=== PATIENT | male | born 1935 | race Caucasian/White ===

== ENCOUNTER 2017-11-19 12:17 | Inpatient (IN) ==
[2017-11-19] MEDS ORDERED: Sodium Chlor 0.9% Inj 500 ML IV.SIG ONE (12:31)
--- NOTE | 2017-11-19 12:39 | ED ---
HPI General Chief complaint: Fall Stated complaint: Evac/Fall/Weakness Time Seen by Provider: 11/19/17 12:20 History of Present Illness HPI narrative: 81-year-old male with a history of CHF, CABG, CVA is brought to the emergency department by EMS for evaluation of fall with head injury. The patient states that last night when he was walking into his bathroom his right knee "gave out" and he fell hitting the back of his head on the bathroom cabinet. Denies loss of consciousness. He is anticoagulated on warfarin. Fire EMS came out last night after the fall however patient refused to be transported to the hospital. States that this morning his called EMS as he has had worsening weakness and he was agreeable to transport today. The patient states that he has had progressive generalized weakness over the last 3 months. He has also had worsening anemia over the past several months, is being followed by hematology, received 2 units of blood transfusion as an outpatient yesterday. States he is unsure why he is anemic, denies any black or bloody stool. He does have lower extremity edema which he states is worse over the last week. Denies any fever, chills, nausea, vomiting, chest pain, shortness of breath, abdominal pain, headache, dizziness, numbness or tingling, one-sided weakness. PCP is Dr. Mcleod. No other complaints. Related Data Home Medications Medication Instructions Recorded Confirmed aspirin [Aspir-81] 81 mg PO DAILY 11/19/17 11/19/17 atorvastatin 80 mg PO DAILY 11/19/17 11/19/17 furosemide [Lasix] 40 mg PO DAILY 11/19/17 11/19/17 lisinopril 10 mg PO DAILY 11/19/17 11/19/17 metoprolol tartrate 50 mg PO BID 11/19/17 11/19/17 pilocarpine HCl 5 mg PO BID 11/19/17 11/19/17 warfarin 6 mg PO DAILY 11/19/17 11/19/17 Allergies Allergy/AdvReac Type Severity Reaction Status Date / Time penicillin G Allergy Mild Unverified 09/25/17 12:18 Review of Systems ROS: all other systems reviewed are negative PMFSH Social History Social History Second Hand Smoke Exposure: No Smoking Status: Former smoker Tobacco Type: Cigarettes How Often Do You Have a Drink Containing Alcohol: Never Recent Travel in [facility] within the Last 8 Weeks: No Recent Out of Country Travel within the Last 8 Weeks: No Exam Narrative Exam Narrative: GENERAL: Well-nourished and well-developed pleasant patient in no acute distress who is nontoxic appearing. SKIN: Warm and dry. There is a hematoma noted to the top of the scalp. HEAD: Normocephalic and atraumatic. No bony point tenderness or crepitus noted throughout the sinuses. EYES: No injection, drainage, or hyphema noted. PERRLA. EOMI. ENT: No nasal drainage noted. Oropharynx is clear and the TMs are normal with good landmarks. NECK: Supple and the trachea is midline. No midline cervical spine tenderness to palpation. CARDIOVASCULAR: Regular rate and rhythm. RESPIRATORY: Breath sounds are equal bilaterally with no accessory muscle use, wheezing, rhonchi, or crackles. GASTROINTESTINAL: Abdomen is soft, non-tender, and nondistended. No hepatosplenomegaly. MUSCULOSKELETAL: Bilateral lower extremity edema. no obvious deformities, cyanosis, or ecchymosis is present throughout the upper and lower extremities. Patient has full range of motion without any signs of neurovascular compromise. Distal pulses are 2+ throughout. Strength 5/5 upper and lower extremities equal bilaterally. NEUROLOGICAL: Awake, alert, and oriented. Normal speech and gait. Cranial nerves are grossly intact. Course Initial Documented Vital Signs Temperature 97.2 F L 11/19/17 12:23 Pulse Rate 119 H 11/19/17 12:23 Respiratory Rate 18 11/19/17 12:23 Blood Pressure 152/69 H 11/19/17 12:23 Pulse Oximetry 97 11/19/17 12:23 Last Documented Vital Signs Temperature 97.2 F L 11/19/17 12:23 Pulse Rate 118 H 11/19/17 15:02 Respiratory Rate 18 11/19/17 15:02 Blood Pressure 141/69 H 11/19/17 15:02 Pulse Oximetry 100 11/19/17 15:02 Medical Decision Making [facility] Narrative Medical decision making narrative: 89-year-old male presents to the emergency department by EMS for evaluation of trip and fall with head trauma. Patient is afebrile. Patient is tachycardic with a heart rate of 110 bpm and his blood pressure is elevated 205/76. IV access is obtained, labs have been drawn and sent. Patient is placed on cardiac telemetry and pulse oximetry monitoring. EKG shows AF with LBBB and RBBB with heart rate 114 bpm. Chest x-ray shows cardiomegaly with basilar airspace disease. Suspect congestive heart failure therefore patient is administered Lasix 40 mg IV. CBC shows anemia with hemoglobin 8.9, hematocrit 26.5, platelets 122, otherwise unremarkable. Lactic acid is 2.2. CMP is unremarkable. INR is 3.4. Urinalysis shows 100 protein, large blood, 39 red blood cells, few bacteria. BNP is elevated at 553. Head CT shows 2.5 x 3.1 cm right anterior frontal intraparenchymal hematoma and a small subarachnoid hemorrhage. CT of the cervical spine is negative for acute abnormalities. Patient is administered 2 units of FFP and 2.5 mg of vitamin K to decrease INR and control bleeding. Neurosurgery was paged to discuss. I spoke with Dr. Monroe neurosurgery who agrees with correction of INR and will consult on the patient in the ICU. Patient's heart rate has remained between 115-120 bpm A. fib with RVR. Blood pressure is stable. Patient is administered Cardizem 10 mg IV for rate control. I spoke with Dr. Gomes trauma specialist who agrees to admit the patient to his service. I discussed the case with my attending physician Dr. Roberts who is aware of the patients history, physical examination findings, and treatment plan. Medical Screen Exam Complete: Yes Emergency Medical Condition: Yes Differential Diagnosis Differential Diagnosis: Intracranial hemorrhage versus hematoma versus dehydration versus sepsis versus anemia Lab Data Result diagrams: 11/19/17 12:40 11/19/17 12:40 Lab Results 11/19/17 11/19/17 11/19/17 Range/Units 12:40 12:40 12:40 WBC 9.6 (4.0-11.0) th/mm3 RBC 2.61 L (4.50-5.90) mil/mm3 Hgb 8.9 L (13.0-17.0) gm/dL Hct 26.5 L (39.0-51.0) % MCV 101.4 H (80.0-100.0) fL MCH 34.0 (27.0-34.0) pg MCHC 33.5 (32.0-36.0) % RDW 22.6 H (11.6-17.2) % Plt Count 122 L (150-450) th/mm3 MPV 7.6 (7.0-11.0) fL Neut % (Auto) 78.7 H (16.0-70.0) % Lymph % (Auto) 14.5 (9.0-44.0) % Brule % (Auto) 5.7 (0.0-8.0) % Eos % (Auto) 0.5 (0.0-4.0) % Baso % (Auto) 0.6 (0.0-2.0) % Neut # (Auto) 7.6 (1.8-7.7) th/mm3 Lymph # (Auto) 1.4 (1.0-4.8) th/mm3 Brule # (Auto) 0.5 (0.0-0.9) th/mm3 Eos # (Auto) 0.1 (0.0-0.4) th/mm3 Baso # (Auto) 0.1 (0.0-0.2) th/mm3 WBC Differential . Differential Comment Auto diff final PT 34.2 H (9.8-11.6) sec INR 3.4 Ratio APTT 44.9 H (24.3-30.1) sec Sodium 136 (136-145) meq/L Potassium 3.6 (3.5-5.1) meq/L Chloride 99 (98-107) meq/L Carbon Dioxide 29.3 (21.0-32.0) meq/L Anion Gap 8 (5-15) meq/L BUN 16 (7-18) mg/dL Creatinine 1.05 (0.60-1.30) mg/dL Estimated GFR 68 L (>89) mL/min Random Glucose 120 H (74-106) mg/dL Lactic Acid (0.4-2.0) mmol/L Calcium 8.0 L (8.5-10.1) mg/dL Total Bilirubin 1.5 H (0.2-1.0) mg/dL AST 27 (15-37) U/L ALT 23 (12-78) U/L Alkaline Phosphatase 75 (45-117) U/L Troponin I 0.02 (0.02-0.05) ng/mL B-Natriuretic Peptide (0-100) pg/mL Total Protein 6.3 L (6.4-8.2) g/dL Albumin 2.2 L (3.4-5.0) g/dL Urine Color (Yellw/Straw) Urine Clarity (Clear) Urine pH (5.0-8.5) Ur Specific [place] (1.002-1.035) Urine Protein (Neg-Trace) mg/dL Urine Glucose (UA) (Negative) mg/dL Urine Ketones (Negative) mg/dL Urine Occult Blood (Negative) Urine Nitrate (Negative) Urine Bilirubin (Negative) Urine Urobilinogen (Less than 2) mg/dL Ur Leukocyte Esterase (Negative) Urine RBC (0-3) /hpf Urine WBC (0-5) /hpf Urine Bacteria (None) /hpf Micro UA Comment Urine Culture Comments Blood Type Antibody Screen Blood Bank Comment 11/19/17 11/19/17 11/19/17 Range/Units 12:40 12:40 12:40 WBC (4.0-11.0) th/mm3 RBC (4.50-5.90) mil/mm3 Hgb (13.0-17.0) gm/dL Hct (39.0-51.0) % MCV (80.0-100.0) fL MCH (27.0-34.0) pg MCHC (32.0-36.0) % RDW (11.6-17.2) % Plt Count (150-450) th/mm3 MPV (7.0-11.0) fL Neut % (Auto) (16.0-70.0) % Lymph % (Auto) (9.0-44.0) % Brule % (Auto) (0.0-8.0) % Eos % (Auto) (0.0-4.0) % Baso % (Auto) (0.0-2.0) % Neut # (Auto) (1.8-7.7) th/mm3 Lymph # (Auto) (1.0-4.8) th/mm3 Brule # (Auto) (0.0-0.9) th/mm3 Eos # (Auto) (0.0-0.4) th/mm3 Baso # (Auto) (0.0-0.2) th/mm3 WBC Differential Differential Comment PT (9.8-11.6) sec INR Ratio APTT (24.3-30.1) sec Sodium (136-145) meq/L Potassium (3.5-5.1) meq/L Chloride (98-107) meq/L Carbon Dioxide (21.0-32.0) meq/L Anion Gap (5-15) meq/L BUN (7-18) mg/dL Creatinine (0.60-1.30) mg/dL Estimated GFR (>89) mL/min Random Glucose (74-106) mg/dL Lactic Acid 2.2 H (0.4-2.0) mmol/L Calcium (8.5-10.1) mg/dL Total Bilirubin (0.2-1.0) mg/dL AST (15-37) U/L ALT (12-78) U/L Alkaline Phosphatase (45-117) U/L Troponin I (0.02-0.05) ng/mL B-Natriuretic Peptide 553 H (0-100) pg/mL Total Protein (6.4-8.2) g/dL Albumin (3.4-5.0) g/dL Urine Color (Yellw/Straw) Urine Clarity (Clear) Urine pH (5.0-8.5) Ur Specific [place] (1.002-1.035) Urine Protein (Neg-Trace) mg/dL Urine Glucose (UA) (Negative) mg/dL Urine Ketones (Negative) mg/dL Urine Occult Blood (Negative) Urine Nitrate (Negative) Urine Bilirubin (Negative) Urine Urobilinogen (Less than 2) mg/dL Ur Leukocyte Esterase (Negative) Urine RBC (0-3) /hpf Urine WBC (0-5) /hpf Urine Bacteria (None) /hpf Micro UA Comment Urine Culture Comments Blood Type A Positive Antibody Screen Negative Blood Bank Comment 11/19/17 11/19/17 Range/Units 12:50 14:32 WBC (4.0-11.0) th/mm3 RBC (4.50-5.90) mil/mm3 Hgb (13.0-17.0) gm/dL Hct (39.0-51.0) % MCV (80.0-100.0) fL MCH (27.0-34.0) pg MCHC (32.0-36.0) % RDW (11.6-17.2) % Plt Count (150-450) th/mm3 MPV (7.0-11.0) fL Neut % (Auto) (16.0-70.0) % Lymph % (Auto) (9.0-44.0) % Brule % (Auto) (0.0-8.0) % Eos % (Auto) (0.0-4.0) % Baso % (Auto) (0.0-2.0) % Neut # (Auto) (1.8-7.7) th/mm3 Lymph # (Auto) (1.0-4.8) th/mm3 Brule # (Auto) (0.0-0.9) th/mm3 Eos # (Auto) (0.0-0.4) th/mm3 Baso # (Auto) (0.0-0.2) th/mm3 WBC Differential Differential Comment PT (9.8-11.6) sec INR Ratio APTT (24.3-30.1) sec Sodium (136-145) meq/L Potassium (3.5-5.1) meq/L Chloride (98-107) meq/L Carbon Dioxide (21.0-32.0) meq/L Anion Gap (5-15) meq/L BUN (7-18) mg/dL Creatinine (0.60-1.30) mg/dL Estimated GFR (>89) mL/min Random Glucose (74-106) mg/dL Lactic Acid (0.4-2.0) mmol/L Calcium (8.5-10.1) mg/dL Total Bilirubin (0.2-1.0) mg/dL AST (15-37) U/L ALT (12-78) U/L Alkaline Phosphatase (45-117) U/L Troponin I (0.02-0.05) ng/mL B-Natriuretic Peptide (0-100) pg/mL Total Protein (6.4-8.2) g/dL Albumin (3.4-5.0) g/dL Urine Color [place] (Yellw/Straw) Urine Clarity Hazy H (Clear) Urine pH 5.0 (5.0-8.5) Ur Specific [place] 1.019 (1.002-1.035) Urine Protein 100 H (Neg-Trace) mg/dL Urine Glucose (UA) Negative (Negative) mg/dL Urine Ketones Negative (Negative) mg/dL Urine Occult Blood Large H (Negative) Urine Nitrate Negative (Negative) Urine Bilirubin Negative (Negative) Urine Urobilinogen 4 or greater (Less than 2) mg/dL Ur Leukocyte Esterase Negative (Negative) Urine RBC 39 H (0-3) /hpf Urine WBC 12 H (0-5) /hpf Urine Bacteria Few H (None) /hpf Micro UA Comment Culture indicated Urine Culture Comments Culture indicated Blood Type Antibody Screen Blood Bank Comment Imaging Data Radiologist's impression: Cervical Spine CT 11/19/17 12:31 CONCLUSION: 1. No acute cervical spine abnormality is identified. 2. Moderate to severe multilevel degenerative change of the cervical spine, as above, with multiple areas of moderate to severe neural foraminal stenosis. Chest X-Ray 11/19/17 12:31 CONCLUSION: Cardiomegaly with basilar airspace disease in the lungs. No prior study for comparison. Head CT 11/19/17 12:31 CONCLUSION: 1. 2.5 x 3.1 cm right anterior frontal intraparenchymal hematoma with region of masslike decreased density anteriorly. There is mild associated mass effect without midline shift. Recommend contrast-enhanced MRI examination to exclude underlying mass once the patient is stable. 2. Small amount of subarachnoid hemorrhage in the left frontal high convexities near the vertex. 3. No hydrocephalus, midline shift or downward herniation.. Discharge Plan Discharge Disposition Patient Disposition: 30 Still Patient Discharge Details Diagnosis: Intracranial hematoma, Subarachnoid hemorrhage, Congestive heart failure, Atrial fibrillation with RVR Physicians Team ED Provider: Herbierto Roberts ED Midlevel Provider: Candi Wolf Primary Care Provider: Madhav Mcleod Rxs /Orders / Referrals /Forms Prescriptions: No Action furosemide [Lasix] 40 mg Tablet 40 mg PO DAILY RF: 0 pilocarpine HCl 5 mg Tablet 5 mg PO BID RF: 0 atorvastatin 80 mg Tablet 80 mg PO DAILY RF: 0 aspirin [Aspir-81] 81 mg Tablet,Delayed Release (Dr/Ec) 81 mg PO DAILY RF: 0 warfarin 6 mg Tablet 6 mg PO DAILY RF: 0 lisinopril 10 mg Tablet 10 mg PO DAILY RF: 0 metoprolol tartrate 50 mg Tablet 50 mg PO BID RF: 0 Status ED Status: With Doctor
--- NOTE | 2017-11-19 13:01 | XR ---
EXAM DATE: 11/19/2017 12:58 PM EDT AGE/SEX: 81 years / Male INDICATIONS: Weakness, fall, short of breath, fever CLINICAL DATA: This is the patient's initial encounter. Patient reports that signs and symptoms have been present for 1 day and indicates a pain score of 5/10. MEDICAL/SURGICAL HISTORY: Congestive heart failure. Anemia. Cardiovascular disease. A-fib, c ervical spine pain CABG. COMPARISON: No prior exams available for comparison. FINDINGS: Cardiomegaly with basilar airspace disease. Probable trace pleural fluid. No pneumothorax. Previous s ternotomy. CONCLUSION: Cardiomegaly with basilar airspace disease in the lungs. No prior study for comparison. Electronically signed by: Sameer Huizar MD 11/19/2017 1:00 PM EDT
[2017-11-19 13:09] LABS: Baso # (Auto) 0.1 th/mm3 (0.0-0.2); Baso % (Auto) 0.6 % (0.0-2.0); Eos # (Auto) 0.1 th/mm3 (0.0-0.4); Eos % (Auto) 0.5 % (0.0-4.0); Hematocrit 26.5 % (39.0-51.0); Hemoglobin 8.9 gm/dL (13.0-17.0); Lymph # (Auto) 1.4 th/mm3 (1.0-4.8); Lymph % (Auto) 14.5 % (9.0-44.0); Mean Corpuscular HGB Conc 33.5 % (32.0-36.0); Mean Corpuscular Volume 101.4 fL (80.0-100.0); Mean Platelet Volume 7.6 fL (7.0-11.0); Mono # (Auto) 0.5 th/mm3 (0.0-0.9); Mono % (Auto) 5.7 % (0.0-8.0); Neut # (Auto) 7.6 th/mm3 (1.8-7.7); Neut % (Auto) 78.7 % (16.0-70.0); Platelet Count 122 th/mm3 (150-450); Red Blood Count 2.61 mil/mm3 (4.50-5.90); Red Cell Distribution Width 22.6 % (11.6-17.2); White Blood Count 9.6 th/mm3 (4.0-11.0)
[2017-11-19 13:13] LABS: Bacteria,Urine Few /hpf; Bilirubin,Urine Negative (Negative); Clarity,Urine Hazy (Clear); Color,Urine Amber (Yellw/Straw); Glucose,Urine (UA) Negative (Negative); Leukocyte Esterase,Urine Negative (Negative); Nitrite,Urine Negative (Negative); Specific Gravity,Urine 1.019 (1.002-1.035); Urobilinogen,Urine 4 or Greater mg/dL (Less than 2)
[2017-11-19 13:18] LABS: Activated Partial Thrombo Time 44.9 sec (24.3-30.1); INR 3.4 Ratio; Prothrombin Time 34.2 sec (9.8-11.6)
[2017-11-19 13:34] LABS: Alanine Aminotransferase 23 U/L (12-78); Albumin 2.2 g/dL (3.4-5.0); Anion Gap 8 meq/L (5-15); Aspartate Aminotransferase 27 U/L (15-37); Blood Urea Nitrogen 16 mg/dL (7-18); Carbon Dioxide 29.3 meq/L (21.0-32.0); Chloride 99 meq/L (98-107); Glomerular Filtration Rate 68 mL/min (>89); Glucose,Random 120 mg/dL (74-106); Potassium 3.6 meq/L (3.5-5.1); Sodium 136 meq/L (136-145)
[2017-11-19 13:38] LABS: Alkaline Phosphatase 75 U/L (45-117); Total Protein 6.3 g/dL (6.4-8.2); Troponin I 0.02 ng/mL (0.02-0.05)
--- NOTE | 2017-11-19 14:03 | CT ---
EXAM DATE: 11/19/2017 1:29 PM EDT AGE/SEX: 81 years / Male INDICATIONS: Patient fell last night. Laceration to top of head CLINICAL DATA: This is the patient's initial encounter. Patient reports that signs and symptoms have been present for 1 day and indicates a pain score of 0/10. MEDICAL/SURGICAL HISTORY: None. None. RADIATION DOSE: 42.46 CTDI (mGy) COMPARISON: No prior exams available for comparison. TECHNIQUE: CT of the head without contrast. Using automated exposure control and adjustment of the mA and/or kV according to patient size, radiation dose was kept as low as reasonably achievable to ob tain optimal diagnostic quality images. DICOM format image data is available electronically for revi ew and comparison. FINDINGS: Cerebrum: There is a 2.5 x 3.1 cm right anterior frontal intraparenchymal hematoma with region of mas slike decreased density anteriorly. Mild associated mass effect without midline shift. There is also small left subarachnoid hemorrhage seen in the left frontal high convexities near the vertex. Small h ypodensity in the right basal ganglia consistent with prior lacunar infarct. Moderate diffuse cerebra l atrophy. The ventricles are normal for degree of atrophy. No evidence of midline shift, mass lesion , hemorrhage or acute infarction. No extraaxial fluid collections are seen. Posterior Fossa: The cerebellum and brainstem are intact. The 4th ventricle is midline. The cerebe llopontine angle is unremarkable. Extracranial: The visualized portion of the orbits is intact. Skull: The calvaria is intact. No evidence of skull fracture. CONCLUSION: 1. 2.5 x 3.1 cm right anterior frontal intraparenchymal hematoma with region of masslike decreased d ensity anteriorly. There is mild associated mass effect without midline shift. Recommend contrast-enh anced MRI examination to exclude underlying mass once the patient is stable. 2. Small amount of subarachnoid hemorrhage in the left frontal high convexities near the vertex. 3. No hydrocephalus, midline shift or downward herniation.. Electronically signed by: Jaspal Godinez MD 11/19/2017 2:01 PM EDT
[2017-11-19] MEDS ORDERED: Phytonadione Inj 10 MG/ML Vial SQ ONE (14:32)
--- NOTE | 2017-11-19 14:33 | CT ---
EXAM DATE: 11/19/2017 1:33 PM EDT AGE/SEX: 81 years / Male INDICATIONS: Patient fell last night, laceration to top of head CLINICAL DATA: This is the patient's initial encounter. Patient reports that signs and symptoms have been present for 1 day and indicates a pain score of 0/10. MEDICAL/SURGICAL HISTORY: None. None. RADIATION DOSE: 23.27 CTDI (mGy) COMPARISON: No prior exams available for comparison. TECHNIQUE: Contiguous axial images were obtained using helical multirow detector technique. The vol umetric data was post-processed with multiplanar reconstruction in oblique axial, sagittal, and coron al planes. Using automated exposure control and adjustment of the mA and/or kV according to patient s ize, radiation dose was kept as low as reasonably achievable to obtain optimal diagnostic quality ej ges. DICOM format image data is available electronically for review and comparison. FINDINGS: Vertebrae: No fracture is identified. Vertebral body height is maintained. Alignment: No anterolisthesis or retrolisthesis. The craniocervical junction and C1-C2 level demonstrate no significant abnormality. There are chronic degenerative changes of the atlantodens interval C2-C3: There is moderate left facet arthrosis. No disc herniation, canal stenosis, or neural foramin al stenosis is appreciated. C3-C4: There is severe right facet arthrosis with right uncovertebral osteophyte. These changes caus e severe right neural foraminal stenosis. No canal stenosis or significant left neural foraminal narr owing is present. C4-C5: There is moderate left facet arthrosis with left uncovertebral osteophyte causing moderate to severe left neural foraminal stenosis. No spinal canal stenosis or right neural foraminal narrowing is present. C5-C6: Decreased disc height with endplate osteophytes anteriorly and a moderate size right paracent ral disc osteophyte complex and a large right uncovertebral osteophyte. These changes result in sever e spinal canal stenosis and mild neural foraminal narrowing. There is no left neural foraminal stenos is. C6-C7: Decreased disc height with endplate osteophytes anteriorly. There is left uncovertebral osteo phyte with small posterior disc osteophyte complex. There is mild to moderate left neural foraminal n arrowing and mild canal narrowing. No right neural foraminal stenosis is present. C7-T1: There is mild bilateral facet arthrosis. No canal stenosis or neural foraminal stenosis is vi sualized. Other: The visualized surrounding structures demonstrate no acute abnormality. CONCLUSION: 1. No acute cervical spine abnormality is identified. 2. Moderate to severe multilevel degenerative change of the cervical spine, as above, with multiple areas of moderate to severe neural foraminal stenosis. Electronically signed by: Pato Betts MD 11/19/2017 2:32 PM EDT
[2017-11-19] MEDS ORDERED: HYDROmorphone PF Inj 0.5 MG/0.5 ML Syringe IV.PUSH PRN (15:50)
[2017-11-19] MEDS ORDERED: Labetalol HCl Inj 100 MG/20 ML Vial IV.PUSH PRN (16:15)
[2017-11-19] MEDS ORDERED: Potassium Chlor 20 mEq Premix 20 MEQ/100 ML PIGGYBACK IV.SIG PRN (16:15)
[2017-11-19] MEDS ORDERED: Magnesium Sulfate Inj 2 GM in Sodium Chlor 0.9% Inj 96 ML IV.SIG PRN (16:15)
[2017-11-19] MEDS ORDERED: Aluminum/Magnesium/Simethacone Susp 30 ML UDC PO PRN (16:15)
[2017-11-19] MEDS ORDERED: Bisacodyl 10 MG Supp RECTAL PRN (16:15)
[2017-11-19] MEDS ORDERED: Calcium Chloride Inj 0.3 GM in Sodium Chlor 0.9% Inj 100 ML IV.SIG PRN (18:00)
--- NOTE | 2017-11-19 18:20 | P.PNCC ---
Subjective Brief History: HPI narrative: 81-year-old male with a history of CHF, CABG, CVA is brought to the emergency department by EMS for evaluation of fall with head injury. The patient states that last night when he was walking into his bathroom his right knee "gave out" and he fell hitting the back of his head on the bathroom cabinet. Denies loss of consciousness. He is anticoagulated on warfarin. Fire EMS came out last night after the fall however patient refused to be transported to the hospital. States that this morning his called EMS as he has had worsening weakness and he was agreeable to transport today. The patient states that he has had progressive generalized weakness over the last 3 months. He has also had worsening anemia over the past several months, is being followed by hematology, received 2 units of blood transfusion as an outpatient yesterday. States he is unsure why he is anemic, denies any black or bloody stool. He does have lower extremity edema which he states is worse over the last week. Denies any fever, chills, nausea, vomiting, chest pain, shortness of breath, abdominal pain, headache, dizziness, numbness or tingling, one-sided weakness. Patient was worked up in the emergency room and full diagnostic workup was completed Traumatic injury include Right frontal intraparenchymal and subarachnoid bleed About 3 cm rounded right frontal cerebral / mass MRI tomorrow In addition patient has multiple medical problems including CHF previous CVA coronary artery disease and atrial fibrillation for which he is on Coumadin. Anticoagulation will be immediately reversed with 2 units of FFP and vitamin K Considering the patient has stable as far as the bleeding is concerned and neurologically intact I do not believe he needs K [facility] at this time Objective Vital Signs / I&O: Vital Signs 11/19/17 12:23 11/19/17 12:37 11/19/17 12:42 Temperature 97.2 F L Pulse Rate 119 H 110 H Respiratory Rate 18 18 Blood Pressure 152/69 H 205/76 H Pulse Oximetry 97 97 97 11/19/17 13:04 11/19/17 15:02 11/19/17 15:36 Temperature 100.9 F H Pulse Rate 117 H 118 H 113 H Respiratory Rate 17 18 17 Blood Pressure 132/59 L 141/69 H 166/65 H Pulse Oximetry 97 100 97 11/19/17 15:52 11/19/17 16:06 11/19/17 16:23 Temperature 99.4 F 98.4 F 100.0 F H Pulse Rate 108 H 112 H 115 H Respiratory Rate 17 20 17 Blood Pressure 139/64 136/64 145/65 H Pulse Oximetry 97 98 97 Intake & Output 11/18/17 11/19/17 11/19/17 18:59 06:59 18:59 Intake Total 628 / 628 Balance 628 / 628 Weight 117.934 kg Intake: Intake (Blood Product) Amt 628 / 628 Plasma Thawed 5 Day Cp2d Unit 329 / 329 [id number] Plasma Thawed 5 Day Cp2d Unit 299 / 299 [id number] Result Diagrams: 11/19/17 12:40 11/19/17 12:40 Imaging: Impressions Cervical Spine CT 11/19/17 12:31 CONCLUSION: 1. No acute cervical spine abnormality is identified. 2. Moderate to severe multilevel degenerative change of the cervical spine, as above, with multiple areas of moderate to severe neural foraminal stenosis. Chest X-Ray 11/19/17 12:31 CONCLUSION: Cardiomegaly with basilar airspace disease in the lungs. No prior study for comparison. Head CT 11/19/17 12:31 CONCLUSION: 1. 2.5 x 3.1 cm right anterior frontal intraparenchymal hematoma with region of masslike decreased density anteriorly. There is mild associated mass effect without midline shift. Recommend contrast-enhanced MRI examination to exclude underlying mass once the patient is stable. 2. Small amount of subarachnoid hemorrhage in the left frontal high convexities near the vertex. 3. No hydrocephalus, midline shift or downward herniation..
--- NOTE | 2017-11-19 18:29 | P.CONNS ---
History of Present Illness Service: Neurosurgery Consult date: 11/19/17 Requesting Physician: Mook Gomes (Trauma surgery) Reason for Consult: Traumatic brain injury Primary Care Provider: Madhav Mcleod MD History of Present Illness: 81-year-old gentleman who fell last evening after he states his left knee gave out on him and struck his head without loss of consciousness. He presented to the emergency room today and CT scan of the head obtained reveals a 3 cm right frontal lobe area of hemorrhage with the hypodensity centrally. There is a small area of left frontal convexity traumatic subarachnoid hemorrhage. No midline shift is noted. Patient is on chronic Coumadin therapy with supratherapeutic INR and is receiving vitamin K and fresh frozen plasma transfusions to correct this. 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 Hopkins from neurology. At this point he denies any headaches or focal neurologic symptoms. He has chronic neck and shoulder pain and states that his back hurts mainly because he has been laying in bed all day. Denies any numbness or paresthesias in the upper or lower extremities. Review of Systems Constitutional: Denies anorexia, Denies body ache(s), Denies chills, Denies daytime sleepiness, Denies excessive sweating, Denies fatigue, Denies fever(s), Denies headache(s), Denies increased appetite, Denies lack of energy, Denies malaise, Denies night sweats, Denies weakness, Denies weight gain, Denies weight loss, Denies other Eyes: Denies blind spots, Denies blurry vision, Denies bulging eyes, Denies change in vision, Denies double vision, Denies discharge, Denies dry eyes, Denies floaters, Denies irritation, Denies itchy eyes, Denies loss of vision, Denies pain, Denies requires corrective lenses, Denies sensitivity to light, Denies other Ears, Nose, Mouth, and Throat: Reports hearing loss, Denies abnormal hearing, Denies bleeding gums, Denies bad breath, Denies change in voice, Denies dental pain, Denies difficulty swallowing, Denies dizziness, Denies dry mouth, Denies ear discharge, Denies ear pain, Denies facial pain, Denies headache(s), Denies hoarseness, Denies lip swelling, Denies nosebleed, Denies mouth lesions, Denies mouth pain, Denies nasal congestion, Denies nasal discharge, Denies nasal obstruction, Denies nasal trauma, Denies neck lump, Denies neck pain, Denies nose pain, Denies pain with swallowing, Denies poor balance, Denies post nasal drip, Denies ringing in the ears, Denies sinus pain, Denies sinus pressure, Denies sore throat, Denies throat swelling, Denies tongue swelling, Denies other Cardiovascular: Reports fast heart rate, Reports irregular heart rhythm, Reports leg swelling, Denies chest pain, Denies chest pain at rest, Denies chest pain with activity, Denies excessive sweating, Denies fainting, Denies foot swelling, Denies generalized swelling, Denies leg pain with activity, Denies leg sores, Denies lightheadedness, Denies radiating jaw, neck or arm pain , Denies rapid, pounding, or irregular heartbeat, Denies shortness of breath, Denies shortness of breath with activity, Denies shortness of breath when lying down, Denies shortness of breath causing sudden awakening, Denies slow heart rate, Denies other Respiratory: Denies change in phlegm color, Denies chest congestion, Denies cough, Denies coughing up blood, Denies excessive phlegm production, Denies pain on inspiration, Denies pain with cough, Denies shortness of breath, Denies shortness of breath with activity, Denies snoring, Denies stridor, Denies wheezing, Denies other Gastrointestinal: Denies abdominal pain, Denies belching, Denies black, tarry stools, Denies bloating, Denies bright, red blood in stools, Denies change in bowel habits, Denies constant urge to pass stool, Denies change in stools, Denies coffee ground vomit, Denies constipation, Denies cramping, Denies difficulty swallowing, Denies excessive passing of gas, Denies feeling full early, Denies heartburn, Denies incontinent of stools, Denies loose stools, Denies nausea, Denies pain with swallowing, Denies vomiting, Denies vomiting blood, Denies other Genitourinary: Reports urinary frequency, Denies blood in semen, Denies blood in urine, Denies decreased urination, Denies difficulty urinating, Denies difficulty with ejaculations, Denies erectile dysfunction, Denies genital lesions, Denies genital pain, Denies painful urination, Denies side pain, Denies frequent nighttime urination, Denies painful ejaculations, Denies penile discharge, Denies scrotal swelling, Denies testicle lump, Denies testicle pain, Denies urinary hesitancy, Denies urinary incontinence, Denies urinary urgency, Denies other Musculoskeletal: Reports joint pain, Reports neck pain, Denies abnormal walking , Denies back pain, Denies body aches, Denies decreased muscle mass, Denies deformity, Denies joint swelling, Denies limited joint movement, Denies loss of height, Denies muscle cramps, Denies muscle weakness, Denies numbness, Denies radiating pain into limb, Denies stiffness, Denies tingling, Denies other Skin/Breast: Reports unusual bruising, Denies acne, Denies bleeding lesions, Denies boil, Denies breast swelling, Denies breast skin changes, Denies breast pain, Denies breast lump, Denies change in breast shape, Denies change in hair, Denies change in skin color, Denies changing lesions, Denies dry skin, Denies excessive hair growth, Denies hair loss, Denies itching, Denies lesions, Denies nail changes, Denies new lesions, Denies nipple discharge, Denies non-healing lesions, Denies redness, Denies sensitivity to light, Denies rash, Denies skin pain, Denies skin ulcer, Denies sores, Denies stretch kumari, Denies wounds, Denies yellowing of the skin, Denies other Neurologic: Denies abnormal hearing, Denies abnormal movements, Denies abnormal speech, Denies abnormal walking, Denies behavioral changes, Denies burning sensations, Denies confusion, Denies dizziness, Denies fainting, Denies frequent falls, Denies headache(s), Denies lack of coordination, Denies localized weakness, Denies loss of vision, Denies memory loss, Denies numbness, Denies other visual disturbances, Denies radiating pain, Denies restless legs, Denies convulsions, Denies seizure-like activity, Denies sensory deficit, Denies tingling, Denies tingling/numbness/burning sensations, Denies tremor(s), Denies unsteadiness, Denies weakness, Denies other Psychiatric: Denies abnormal sleep pattern, Denies anxiety, Denies behavioral changes, Denies change in appetite, Denies change in sex drive, Denies confusion , Denies depression, Denies difficulty concentrating, Denies hearing things others do not hear, Denies hopelessness, Denies irritability, Denies lack of enjoyment, Denies memory loss, Denies mood swings, Denies panic attacks, Denies paranoia, Denies seeing things others do not see, Denies sensing things others do not sense, Denies tactile hallucinations, Denies thoughts of hurting/killing others, Denies thoughts of hurting/killing yourself, Denies other Endocrine: Denies cold intolerance, Denies excessive sweating, Denies flushing, Denies heat intolerance, Denies increased hunger, Denies increased thirst, Denies increased urination, Denies rapid, pounding, or irregular heartbeat, Denies other Hematologic/Lymphatic: Reports easy bleeding, Reports easy bruising, Denies enlarged lymph nodes, Denies other Allergic/Immunologic: Denies GI upset with certain foods, Denies hives, Denies itchy eyes, Denies lip swelling, Denies seasonal runny nose, Denies throat swelling, Denies tongue swelling, Denies wheezing, Denies other PMFSH - History History Provided By: Patient - Medical History Medical History: Medical History (Last Updated 11/19/17 @ 18:28 by Nilay Monroe MD) Anemia Arthritis Atrial fibrillation CHF (congestive heart failure) Neck pain Stroke - Tobacco History Second Hand Smoke Exposure: No Tobacco Use In Past 30 Days: No Smoking Status: Former smoker Tobacco Type: Cigarettes - Alcohol History How Often Do You Have a Drink Containing Alcohol: Never - Travel History Recent Travel in the [facility] Within the Last 8 Weeks: No Recent Travel Out of the Country Within the Last 8 Weeks: No - Immunization History Tetanus Immunization: Unsure Medications and Allergies Active Medications: Active Medications Hydrocodone Bitart/Acetaminophen ([place] 10/325) 1 tab PO Q4H PRN PRN Reason: Pain Scale 1 To 5 Al Hydrox/Mg Hydrox/Simethicone (Mag-Al Plus Susp Liq) 30 ml PO Q6H PRN PRN Reason: DYSPEPSIA Al Hydroxide/Mg Hydroxide (Milk Of Magnesia Liq) 30 ml PO Q12H PRN PRN Reason: Mild Constipation Albuterol (Albuterol Neb (Prn)) 2.5 mg NEB Q4HR NEB PRN PRN Reason: WHEEZING Bacitracin (Baciguent Oint) 1 applicatio TOPICAL BID HEBER Bisacodyl (Dulcolax Supp) 10 mg RECTAL DAILY PRN PRN Reason: SEVERE CONSITIPATION Chlorhexidine Gluconate (Chlorhexidine 2% Cloth) 3 pack TOPICAL DAILY@0400 HEBER Stop: 11/25/17 03:59 Chlorhexidine Gluconate (Chlorhexidine 2% Cloth) 3 pack TOPICAL DAILY@0400 PRN PRN Reason: Extra cloth needed Stop: 11/25/17 03:59 Clonidine HCl (Catapres) 0.1 mg PO Q6H PRN PRN Reason: SYS BP GREATER THAN 170 MMHG Docusate Sodium (Colace) 100 mg PO BID HEBER Enalaprilat (Vasotec Inj) 1.25 mg IV.PUSH Q8H PRN PRN Reason: Blood pressure 180/95 Furosemide (Lasix) 40 mg PO DAILY HEBER Hydromorphone HCl (Dilaudid Pf Inj) 0.5 mg IV.PUSH Q1H PRN PRN Reason: PAIN 6-10;IF UNABLE TO TAKE PO Sodium Chloride (Ns Inj) 1,000 mls @ 100 mls/hr IV.CONT .Q10H HEBER Calcium Chloride 0.3 gm/ (Sodium Chloride) 103 mls @ 103 mls/hr IV.SIG UNSCH PRN PRN Reason: SEE LABEL COMMENTS Magnesium Sulfate Inj 2 gm/ (Sodium Chloride) 100 mls @ 100 mls/hr IV.SIG UNSCH PRN PRN Reason: MAGNESIUM LESS THAN 2 Potassium Chloride (Kcl 20 Meq Premix Inj) 20 meq in 100 mls @ 50 mls/hr IV.SIG UNSCH PRN PRN Reason: POTASSIUM LESS THAN 4 Labetalol HCl (Trandate Inj) 10 mg IV.PUSH Q1H PRN PRN Reason: SYS BP GREATER THAN 170 MMHG Lactulose (Lactulose Liq) 30 ml PO DAILY PRN PRN Reason: SEVERE CONSITIPATION Levetiracetam (Keppra) 500 mg PO BID HEBER Lisinopril (Prinivil) 10 mg PO DAILY HEBER Lorazepam (Ativan Inj) 1 mg IV.PUSH Q1H PRN PRN Reason: SEIZURES Metoprolol Tartrate (Lopressor) 50 mg PO BID HEBER Ondansetron HCl (Zofran Inj) 4 mg IV.PUSH Q6H PRN PRN Reason: NAUSEA OR VOMITING Pantoprazole Sodium (Protonix Inj) 40 mg IV.PUSH Q24H HEBER Pilocarpine HCl (Salagen) 5 mg PO BID HEBER Sennosides (Senokot) 17.2 mg PO Q12H PRN PRN Reason: Moderate Constipation Sodium Chloride (Ns Flush) 2 ml IV.FLUSH UNSCH PRN PRN Reason: FLUSH AFTER USING IV ACCESS Allergies Allergy/AdvReac Type Severity Reaction Status Date / Time penicillin G Allergy Mild Unverified 09/25/17 12:18 Home Medications Medication Instructions Recorded Confirmed Type aspirin [Aspir-81] 81 mg PO DAILY 11/19/17 11/19/17 History atorvastatin 80 mg PO DAILY 11/19/17 11/19/17 History furosemide [Lasix] 40 mg PO DAILY 11/19/17 11/19/17 History lisinopril 10 mg PO DAILY 11/19/17 11/19/17 History metoprolol tartrate 50 mg PO BID 11/19/17 11/19/17 History pilocarpine HCl 5 mg PO BID 11/19/17 11/19/17 History warfarin 6 mg PO DAILY 11/19/17 11/19/17 History Exam Vital signs: Vital Signs 11/19/17 12:23 11/19/17 12:37 11/19/17 12:42 Temperature 97.2 F L Pulse Rate 119 H 110 H Respiratory Rate 18 18 Blood Pressure 152/69 H 205/76 H Pulse Oximetry 97 97 97 11/19/17 13:04 11/19/17 15:02 11/19/17 15:36 Temperature 100.9 F H Pulse Rate 117 H 118 H 113 H Respiratory Rate 17 18 17 Blood Pressure 132/59 L 141/69 H 166/65 H Pulse Oximetry 97 100 97 11/19/17 15:52 11/19/17 16:06 11/19/17 16:23 Temperature 99.4 F 98.4 F 100.0 F H Pulse Rate 108 H 112 H 115 H Respiratory Rate 17 20 17 Blood Pressure 139/64 136/64 145/65 H Pulse Oximetry 97 98 97 Intake & Output 11/18/17 11/19/17 11/19/17 18:59 06:59 18:59 Intake Total 628 / 628 Balance 628 / 628 Weight 117.934 kg Intake: Intake (Blood Product) Amt 628 / 628 Plasma Thawed 5 Day Cp2d Unit 329 / 329 [id number] Plasma Thawed 5 Day Cp2d Unit 299 / 299 [id number] - Constitutional no acute distress, obese - Routine HEENT Exam Head: Present: abrasion Eye: Present: EOMI, PERRL ENT: Present: mucous membranes moist, oropharynx clear, nares patent, external ear normal - Routine Neck Exam Present: supple, full ROM - Routine Respiratory Exam Present: CTA bilaterally - Routine Cardiovascular Exam Present: irregularly irregular - Routine Abdominal Exam Present: soft, normoactive bowel sounds, distended - Routine Extremities Exam Present: edema - Routine Skin Exam Present: intact, warm - Routine Neurological Exam Present: oriented X3, CN II-XII intact, plantar reflex, moving all extremities, normal speech Results - Laboratory Findings CBC and BMP: 11/19/17 12:40 11/19/17 12:40 Abnormal lab findings: Abnormal Labs 11/19/17 11/19/17 11/19/17 12:40 12:40 12:40 RBC 2.61 L Hgb 8.9 L Hct 26.5 L MCV 101.4 H RDW 22.6 H Plt Count 122 L Neut % (Auto) 78.7 H PT 34.2 H APTT 44.9 H Estimated GFR 68 L Random Glucose 120 H Lactic Acid Calcium 8.0 L Total Bilirubin 1.5 H B-Natriuretic Peptide Total Protein 6.3 L Albumin 2.2 L Urine Clarity Urine Protein Urine Occult Blood Urine RBC Urine WBC Urine Bacteria 11/19/17 11/19/17 11/19/17 12:40 12:40 12:50 RBC Hgb Hct MCV RDW Plt Count Neut % (Auto) PT APTT Estimated GFR Random Glucose Lactic Acid 2.2 H Calcium Total Bilirubin B-Natriuretic Peptide 553 H Total Protein Albumin Urine Clarity Hazy H Urine Protein 100 H Urine Occult Blood Large H Urine RBC 39 H Urine WBC 12 H Urine Bacteria Few H - Diagnostic Findings Additional findings: Impressions Cervical Spine CT 11/19/17 12:31 CONCLUSION: 1. No acute cervical spine abnormality is identified. 2. Moderate to severe multilevel degenerative change of the cervical spine, as above, with multiple areas of moderate to severe neural foraminal stenosis. Chest X-Ray 11/19/17 12:31 CONCLUSION: Cardiomegaly with basilar airspace disease in the lungs. No prior study for comparison. Head CT 11/19/17 12:31 CONCLUSION: 1. 2.5 x 3.1 cm right anterior frontal intraparenchymal hematoma with region of masslike decreased density anteriorly. There is mild associated mass effect without midline shift. Recommend contrast-enhanced MRI examination to exclude underlying mass once the patient is stable. 2. Small amount of subarachnoid hemorrhage in the left frontal high convexities near the vertex. 3. No hydrocephalus, midline shift or downward herniation.. Assessment and Plan - Assessment (1) Traumatic brain injury Code(s): S06.9X9A - Unspecified intracranial injury with loss of consciousness of unspecified duration, initial encounter Status: Acute (2) Coagulopathy Code(s): D68.9 - Coagulation defect, unspecified Status: Chronic (3) Intracranial hematoma Code(s): S06.369A - Traumatic hemorrhage of cerebrum, unspecified, with loss of consciousness of unspecified duration, initial encounter Status: Acute (4) Congestive heart failure Code(s): I50.9 - Heart failure, unspecified Status: Chronic (5) Atrial fibrillation with RVR Code(s): I48.91 - Unspecified atrial fibrillation Status: Chronic - Plan 81-year-old gentleman who suffered from a right frontal lobe hemorrhage along with traumatic left frontal subarachnoid hemorrhage without midline shift. He has a supratherapeutic INR from Coumadin toxicity which she is on for his atrial fibrillation with a history of embolic strokes in the past. The right frontal lobe hemorrhage has a central hypodensity and this could either reflect a hyperacute blood or an underlying cystic mass or encephalomalacia from previous injury/stroke. Recommend correction of his coagulopathy with FFP and vitamin K. We will obtain MRI scan of the brain with and without contrast tomorrow to rule out any underlying mass. Recommend gastrointestinal stress ulcer and mechanical DVT prophylaxis. Discussed with patient and and answered all their questions. Discussed with nursing staff. (1) Traumatic brain injury Qualifiers: Encounter type: initial encounter Loss of consciousness presence/duration: without LOC Qualified Code(s): S06.9X0A - Unspecified intracranial injury without loss of consciousness, initial encounter (3) Intracranial hematoma Qualifiers: Encounter type: initial encounter Laterality: right Loss of consciousness presence/duration: without LOC Qualified Code(s): S06.340A - Traumatic hemorrhage of right cerebrum without loss of consciousness, initial encounter (4) Congestive heart failure Qualifiers: Heart failure type: unspecified Heart failure chronicity: acute on chronic Qualified Code(s): I50.9 - Heart failure, unspecified
[2017-11-19] MEDS: Pantoprazole Inj 40 MG Vial IV.PUSH SCH (18:45)
[2017-11-19] MEDS: Sod Chloride 0.9% Inj 1,000 ML IV.CONT SCH (18:45)
[2017-11-19] MEDS: levETIRAcetam 500 MG Tablet PO SCH (20:01)
[2017-11-19] MEDS: Docusate Sodium 100 MG Capsule PO SCH (20:01)
[2017-11-19] MEDS: dilTIAZem CD 180 MG Capsule PO SCH (20:02)
[2017-11-19] MEDS: Pilocarpine HCl 5 MG Tablet PO SCH (20:02)
[2017-11-19] MEDS: Metoprolol Tartrate 50 MG Tablet PO SCH (20:56)
[2017-11-19 21:19] LABS: INR 2.1 Ratio; Prothrombin Time 21.7 sec (9.8-11.6)
--- NOTE | 2017-11-19 23:36 | ECG ---
Date Performed: 11/19/2017 Time Performed: 17:26:08 PTAGE: 81 years EKG: Atrial fibrillation with rapid ventricular response. Left anterior fascicular block RBBB In ferior ST elevation, CONSIDER ACUTE INFARCT Low QRS voltages in precordial leads Abnormal ECG PREVIOUS TRACING : 03/21/2017 12.16 Since the previous tracing, no significant change noted DOCTOR: Gerber Mckinney Interpretating Date/Time 11/19/2017 23:35:39
--- NOTE | 2017-11-19 23:48 | ECG ---
Date Performed: 11/19/2017 Time Performed: 12:37:43 PTAGE: 81 years EKG: ATRIAL FIBRILLATION WITH RAPID VENTRICULAR RESPONSE INTRAVENTRICULAR CONDUCTION DELAY INFER IOR MYOCARDIAL INFARCTION ANTEROLATERAL MYOCARDIAL INFARCTION ABNORMAL ECG PREVIOUS TRACING : 12/31/2009 06.29 Compared to previous tracing, now in AFib with RBBB DOCTOR: Gerber Mckinney Interpretating Date/Time 11/19/2017 23:46:08
[2017-11-20] MEDS ORDERED: Chlorhexidine Gluconate 2% 1 Pack (2 Cloths) TOPICAL PRN (04:00)
--- NOTE | 2017-11-20 04:11 | XR ---
EXAM DATE: 11/20/2017 3:24 AM EDT AGE/SEX: 81 years / Male INDICATIONS: Shortness of breath. CLINICAL DATA: This is the patient's subsequent encounter. Patient reports that signs and symptoms h ave been present for 2 days and indicates a pain score of 0/10. MEDICAL/SURGICAL HISTORY: . Congestive heart failure. Anemia. Cardiovascular disease. A-fib, C ABG. COMPARISON: [facility], CHEST 1V SINGLE AP, 11/19/2017. . FINDINGS: A single AP view of the chest demonstrates moderate cardiomegaly. Small left pleural effusion. Bibasi lar consolidation similar to the prior study. Median sternotomy wires noted. CONCLUSION: Radiographic pattern suggesting pulmonary edema. Appearance is stable from the prior study. Electronically signed by: Jaswant Villalobos MD 11/20/2017 4:10 AM EDT
[2017-11-20] MEDS: Chlorhexidine Gluconate 2% 1 Pack (2 Cloths) TOPICAL SCH (04:51)
[2017-11-20] MEDS: Sod Chloride 0.9% Inj 1,000 ML IV.CONT SCH ×2 (05:34→14:16)
[2017-11-20 05:36] LABS: Baso % (Auto) 0.6 % (0.0-2.0); Eos # (Auto) 0.1 th/mm3 (0.0-0.4); Eos % (Auto) 0.9 % (0.0-4.0); Hematocrit 21.5 % (39.0-51.0); Hemoglobin 7.2 gm/dL (13.0-17.0); Lymph # (Auto) 1.2 th/mm3 (1.0-4.8); Lymph % (Auto) 13.9 % (9.0-44.0); Mean Corpuscular HGB Conc 33.6 % (32.0-36.0); Mean Corpuscular Volume 101.1 fL (80.0-100.0); Mean Platelet Volume 7.8 fL (7.0-11.0); Mono # (Auto) 0.7 th/mm3 (0.0-0.9); Mono % (Auto) 8.6 % (0.0-8.0); Neut # (Auto) 6.4 th/mm3 (1.8-7.7); Platelet Count 103 th/mm3 (150-450); Red Blood Count 2.12 mil/mm3 (4.50-5.90); Red Cell Distribution Width 22.2 % (11.6-17.2); White Blood Count 8.4 th/mm3 (4.0-11.0)
[2017-11-20 05:44] LABS: INR 1.4 Ratio; Prothrombin Time 14.1 sec (9.8-11.6)
[2017-11-20 05:59] LABS: Calcium 7.8 mg/dL (8.5-10.1); Carbon Dioxide 29.8 meq/L (21.0-32.0); Potassium 3.3 meq/L (3.5-5.1)
[2017-11-20] MEDS: Pilocarpine HCl 5 MG Tablet PO SCH ×2 (08:07→21:24)
[2017-11-20] MEDS: Lisinopril 10 MG Tablet PO SCH (08:08)
[2017-11-20] MEDS: dilTIAZem CD 180 MG Capsule PO SCH (08:08)
[2017-11-20] MEDS: Docusate Sodium 100 MG Capsule PO SCH ×2 (08:08→21:24)
[2017-11-20] MEDS: levETIRAcetam 500 MG Tablet PO SCH ×2 (08:08→21:24)
[2017-11-20] MEDS: Furosemide 40 MG Tablet PO SCH (08:08)
[2017-11-20] MEDS: Metoprolol Tartrate 50 MG Tablet PO SCH ×2 (08:08→21:24)
--- NOTE | 2017-11-20 08:32 | MH ---
cc: Mook Gomes MD DATE OF ADMISSION: 11/19/2017 CHIEF COMPLAINT: Trauma consultation, status post fall, subarachnoid hemorrhage. HISTORY OF PRESENT ILLNESS: The patient is a 81-year-old male with multiple medical issues who presents status post fall. The patient was noted to be walking to the bathroom last night when he states he lost his footing and his knees became weak and he fell hitting the back of his head at the vanity. He denied any loss of consciousness. He was complaining of some headache. He came to the emergency department for further evaluation including CT scan showing bilateral frontal subarachnoid hemorrhage right concerning for possible underlying mass. The patient noted to have medical issues including a stroke and also atrial fibrillation. He is currently on Coumadin with an INR of 3.4. He received FFP and is receiving vitamin K for coagulant reversal. He denies any previous falls; however, he does note he has had some weakness as of the last several months. He has also noted anemia for which he received 2-unit blood transfusion yesterday. He is currently under GI workup for which he has not yet undergone EGD or colonoscopy, but these are planning. Further denies nausea, vomiting or any melena and stool. PAST MEDICAL HISTORY: CHF, coronary artery disease, CVA, atrial fibrillation, anemia. PAST SURGICAL HISTORY: Appendectomy, CABG. SOCIAL HISTORY: Denies smoking, ETOH or IVDA. ALLERGIES: PENICILLIN. MEDICATIONS: See EMR, Coumadin. FAMILY HISTORY: Denies diabetes or hypertension. REVIEW OF SYSTEMS: A 10-point review of systems done, otherwise negative except as above. PHYSICAL EXAMINATION: GENERAL: The patient in no acute distress. VITAL SIGNS: Temperature 97.2, pulse 119, respiration 18, blood pressure 152/69, saturation 97% on room air. HEENT: Pupils equal, round, reactive. Trachea midline. Scalp, scant dry blood with abrasion. NECK: Supple. Clavicles nontender. LUNGS: Bilateral expansion, clear. HEART: Irregularly irregular, S1, S2. ABDOMEN: Soft, nontender, nondistended. EXTREMITIES: Warm and well perfused, 2+ pulses in all extremities. Extremity with bilateral lower extremity edema and skin changes. NEUROLOGIC: GCS of 15. 5/5 motor in all extremities. BACK: No step-off, nontender. PSYCHIATRIC: Appropriate mood, appropriate judgment. LABORATORY AND DIAGNOSTIC DATA: WBC is 9.6, hemoglobin 8.9, hematocrit 26.5, platelets 122. Sodium 136, potassium 3.6, chloride 99, BUN 16, creatinine 1, glucose 120. Bilirubin 1.5, AST 27, ALT 23, albumin 2.2. INR 3.4. CT scans were reviewed by myself and radiologic studies. CT head, bilateral frontal subarachnoid hemorrhage concern for underlying mass effect right frontal region, no evidence of fracture. CT C-spine degenerative changes, chronic stenosis, no evidence of acute fracture. Chest x-ray atelectatic changes. No acute pathology. ASSESSMENT: The patient 81-year-old male, status post trip and fall, bilateral subarachnoid hemorrhage, supratherapeutic INR 3.4, multiple medical issues. PLAN: After the full workup, the patient has above-named issues. At this point, regarding subarachnoid hemorrhage, the patient is being evaluated by neurosurgeon. The patient will need correction in coagulopathy with FFP, vitamin K. We will monitor this very closely. The patient will need frequent neurologic checks. He will likely need repeat CT scan in the a.m. We will again defer management for this for neurosurgery. The patient will be sent to the ICU consultation to Dr. Miles. He may benefit from mri after acute trauma resolution to eval mass Discussed this with patient. He understands this. With regard to scalp abrasion , wound care, bacitracin. The patient at this point will be n.p.o., IV fluids, pain control. The patient will be on telemetry and close cardiac monitoring, may warrant further workup to identify specific etiology of fall if warranted. MD NADIYA Grigsby/sv , 07:56 AM , 08:09 AM [id number]
[2017-11-20] MEDS ORDERED: Gadobutrol PF 2 MMOL/2 ML Vial (for RAD) IV.SIG ONE (09:58)
[2017-11-20] MEDS ORDERED: Sodium Chlor 0.9% Inj 250 ML IV.SIG SCH (10:00)
--- NOTE | 2017-11-20 10:30 | P.PNCC ---
Subjective Brief History: HPI narrative: 81-year-old male with a history of CHF, CABG, CVA is brought to the emergency department by EMS for evaluation of fall with head injury. The patient states that last night when he was walking into his bathroom his right knee "gave out" and he fell hitting the back of his head on the bathroom cabinet. Denies loss of consciousness. He is anticoagulated on warfarin. Fire EMS came out last night after the fall however patient refused to be transported to the hospital. States that this morning his called EMS as he has had worsening weakness and he was agreeable to transport today. The patient states that he has had progressive generalized weakness over the last 3 months. He has also had worsening anemia over the past several months, is being followed by hematology, received 2 units of blood transfusion as an outpatient yesterday. States he is unsure why he is anemic, denies any black or bloody stool. He does have lower extremity edema which he states is worse over the last week. Denies any fever, chills, nausea, vomiting, chest pain, shortness of breath, abdominal pain, headache, dizziness, numbness or tingling, one-sided weakness. Patient was worked up in the emergency room and full diagnostic workup was completed Traumatic injury include Right frontal intraparenchymal and subarachnoid bleed About 3 cm rounded right frontal cerebral / mass MRI tomorrow In addition patient has multiple medical problems including CHF previous CVA coronary artery disease and atrial fibrillation for which he is on Coumadin. Anticoagulation will be immediately reversed with 2 units of FFP and vitamin K Considering the patient has stable as far as the bleeding is concerned and neurologically intact I do not believe he needs K Centra at this time 24 Hour Review/Hospital Course: 11/20/2017 Neurologically patient is awake alert and oriented 3 [place] Coma Scale is 15 No gross motoric deficit Patient has been doing well throughout the night MRI brain this morning with possible consult to neurology Hemodynamically patient is stable. He is in chronic atrial fibrillation and on arrival was on Coumadin. Patient received 2 units of FFP and vitamin K to reverse Coumadin effects and anticoagulated state. He is clearly at risk off cardioarterial embolism in chronic atrial fibrillation without Coumadin however the risk versus benefit is unquestionably to normalization of the coagulation profile Hemoglobin 7.2 g/dL we will transfuse 2 units PRBC in face of cardiac issues and chronic anemia patient states he has Bilateral breath sounds good inspiratory effort Renal function preserved. Slightly volume overloaded and will give patient some Lasix with administration of blood Patient can be transferred to floor today will consult hospitalist and further care per clinical indices Neurosurgery help greatly appreciated Objective Vital Signs / I&O: Vital Signs 11/19/17 12:23 11/19/17 12:37 11/19/17 12:42 Temperature 97.2 F L Pulse Rate 119 H 110 H Respiratory Rate 18 18 Blood Pressure 152/69 H 205/76 H Pulse Oximetry 97 97 97 11/19/17 13:04 11/19/17 15:02 11/19/17 15:36 Temperature 100.9 F H Pulse Rate 117 H 118 H 113 H Respiratory Rate 17 18 17 Blood Pressure 132/59 L 141/69 H 166/65 H Pulse Oximetry 97 100 97 11/19/17 15:52 11/19/17 16:06 11/19/17 16:23 Temperature 99.4 F 98.4 F 100.0 F H Pulse Rate 108 H 112 H 115 H Respiratory Rate 17 20 17 Blood Pressure 139/64 136/64 145/65 H Pulse Oximetry 97 98 97 11/19/17 17:00 11/19/17 20:00 11/19/17 21:37 Temperature 98.6 F 98.4 F Pulse Rate 126 H 114 H Respiratory Rate 32 H 18 Blood Pressure 155/76 H 133/64 Pulse Oximetry 100 96 94 L 11/20/17 00:00 11/20/17 00:35 11/20/17 01:00 Temperature 98.6 F Pulse Rate 82 Respiratory Rate 18 18 Blood Pressure 120/58 L Pulse Oximetry 96 89 L 11/20/17 01:07 11/20/17 02:00 11/20/17 04:00 Temperature 97.5 F L Pulse Rate 75 Respiratory Rate 18 17 Blood Pressure 126/63 Pulse Oximetry 98 Intake & Output 11/19/17 11/20/17 11/20/17 18:59 06:59 18:59 Intake Total 1128 / 1128 1051 / 1051 Output Total 600 / 600 Balance 1128 / 1128 451 / 451 Weight 121.4 kg 121.1 kg Intake: IV 500 / 500 1051 / 1051 NS Inj 1,000 ML @ 100 mls/hr IV 1000 / 1000 .CONT .Q10H HEBER Rx#:[id number] Vitamin K Inj 10 MG In D5W Inj 51 / 51 50 ML @ 102 mls/hr IV.SIG ONCE ONE Rx#:[id number] Intake (Blood Product) Amt 628 / 628 Plasma Thawed 5 Day Cp2d Unit 329 / 329 [id number] Plasma Thawed 5 Day Cp2d Unit 299 / 299 [id number] Output: Urine 600 / 600 Other: # Voids 3 Weight On Admission 117.934 kg Result Diagrams: 11/20/17 03:37 11/20/17 03:37 Imaging: Impressions Cervical Spine CT 11/19/17 12:31 CONCLUSION: 1. No acute cervical spine abnormality is identified. 2. Moderate to severe multilevel degenerative change of the cervical spine, as above, with multiple areas of moderate to severe neural foraminal stenosis. Chest X-Ray 11/19/17 12:31 CONCLUSION: Cardiomegaly with basilar airspace disease in the lungs. No prior study for comparison. Head CT 11/19/17 12:31 CONCLUSION: 1. 2.5 x 3.1 cm right anterior frontal intraparenchymal hematoma with region of masslike decreased density anteriorly. There is mild associated mass effect without midline shift. Recommend contrast-enhanced MRI examination to exclude underlying mass once the patient is stable. 2. Small amount of subarachnoid hemorrhage in the left frontal high convexities near the vertex. 3. No hydrocephalus, midline shift or downward herniation.. Chest X-Ray 11/20/17 06:00 CONCLUSION: Radiographic pattern suggesting pulmonary edema. Appearance is stable from the prior study. 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 He is in chronic atrial fibrillation and on arrival was on Coumadin. Patient received 2 units of FFP and vitamin K to reverse Coumadin effects and anticoagulated state. He is clearly at risk off cardioarterial embolism in chronic atrial fibrillation without Coumadin however the risk versus benefit is unquestionably to normalization of the coagulation profile Hemoglobin 7.2 g/dL we will transfuse 2 units PRBC in face of cardiac issues and chronic anemia patient states he has Pulmonary/Respiratory: Bilateral breath sounds good inspiratory effort Abdomen/GI Nutrition: Abdomen soft active bowel sounds Renal/I&O: Renal function preserved. Slightly volume overloaded and will give patient some Lasix with administration of blood Assessment and Plan Attestation: Patient can be transferred to floor today will consult hospitalist and further care per clinical indices Neurosurgery help greatly appreciated Critical care 32 minutes
--- NOTE | 2017-11-20 11:26 | MR ---
EXAM DATE: 11/20/2017 10:18 AM EDT AGE/SEX: 81 years / Male INDICATIONS: Frequent falls. CLINICAL DATA: This is the patient's subsequent encounter. Patient reports that signs and symptoms h ave been present for 2 days and indicates a pain score of 0/10. MEDICAL/SURGICAL HISTORY: Congestive heart failure. Anemia. A fib, CVA CABG. COMPARISON: [facility] [place] HEAD W/O CONTRAST, 11/19/2017. . TECHNIQUE: Multiplanar, multisequence examination of the brain was performed without and with 12 ml G adavist (gadobutrol) contrast as a single exam dose. FINDINGS: A right orbital frontal hematoma is again noted. The postcontrast sequences reveal some areas of tubu lar and slightly serpiginous contrast enhancement which is felt most probably benign posttraumatic ho wever presence of an underlying venous anomaly could also be considered. There is nothing to suggest an AVM or a neoplasm. There is minimal subarachnoid blood in the high convexity left parietal region. There are small bilateral basal ganglia lacunar infarcts which are old. There is minimal ventricular asymmetry. Slight subfalcine shift in the frontal region of less than a centimeter. There is nothing to suggest acute infarction. There is prominent diffuse pachymeningeal contrast-enhancement which appears benign. Extracranial structures are benign and intact. CONCLUSION: 1. Right orbital frontal hematoma, likely isolated however underlying developmental venous anomaly c annot be excluded. Follow-up in 2-3 months with pre and postcontrast MRI suggested. 2. Minimal left parietal subarachnoid blood. 3. Benign appearing pachymeningeal contrast enhancement, diffuse Electronically signed by: Pato Storm MD 11/20/2017 11:24 AM EDT
--- NOTE | 2017-11-20 14:20 | P.CONIM ---
History of Present Illness Primary Care Provider: Madhav Mcleod MD History of Present Illness: Pt is 81 yo man with cad/cabg x 4, afib, htn, cva's presents by EMS after falling last night striking back of his head. Refused transport but later was getting weak and called. Pt notes to have ICH right frontal and left parietal subarachnoid hemorrhage. He is on coumadin and given 2 units ffp and vit k. Currently he is in ISC and neurologically appears stable. CT Head: 11/19 CONCLUSION: 1. 2.5 x 3.1 cm right anterior frontal intraparenchymal hematoma with region of masslike decreased density anteriorly. There is mild associated mass effect without midline shift. Recommend contrast-enhanced MRI examination to exclude underlying mass once the patient is stable. 2. Small amount of subarachnoid hemorrhage in the left frontal high convexities near the vertex. 3. No hydrocephalus, midline shift or downward herniation.. MRI Head 822: CONCLUSION: 1. Right orbital frontal hematoma, likely isolated however underlying developmental venous anomaly cannot be excluded. Follow-up in 2-3 months with pre and postcontrast MRI suggested. 2. Minimal left parietal subarachnoid blood. 3. Benign appearing patchy meningeal contrast enhancement, diffuse PMH afib cva. right occipital/parietal. left brainstem cad. cabg x 4. hx AR htn hyperlipidemia recently identified anemia hgb around 8 since 06/16. being evaluated by pcp/ hematology. . tx sh. no etoh/tob Review of Systems fall h/a weakness. PMFSH - History History Provided By: Patient - Medical History Medical History: Medical History (Last Reviewed 11/20/17 @ 08:16 by Shad Chaudhari) Anemia Arthritis Atrial fibrillation CHF (congestive heart failure) Neck pain Stroke - Tobacco History Second Hand Smoke Exposure: No Tobacco Use In Past 30 Days: No Smoking Status: Never smoker Tobacco Type: Cigarettes - Alcohol History How Often Do You Have a Drink Containing Alcohol: Never - Substance Use History Substance History: No History of Abuse - Travel History Recent Travel in the [place] Within the Last 8 Weeks: No Recent Travel Out of the Country Within the Last 8 Weeks: No - Immunization History Tetanus Immunization: <5 Years Hx Influenza Vaccine This Season: No Medications and Allergies Active Medications: Active Medications Al Hydrox/Mg Hydrox/Simethicone (Mag-Al Plus Susp Liq) 30 ml PO Q6H PRN PRN Reason: DYSPEPSIA Al Hydroxide/Mg Hydroxide (Milk Of Moriah Prasad) 30 ml PO Q12H PRN PRN Reason: Mild Constipation Albuterol (Albuterol Neb (Prn)) 2.5 mg NEB Q4HR NEB PRN PRN Reason: WHEEZING Bacitracin (Baciguent Oint) 1 applicatio TOPICAL BID [facility] Last Admin: 11/19/17 20:02 Dose: 1 applicatio Bisacodyl (Dulcolax Supp) 10 mg RECTAL DAILY PRN PRN Reason: SEVERE CONSITIPATION Chlorhexidine Gluconate (Chlorhexidine 2% Cloth) 3 pack TOPICAL DAILY@0400 [facility] Stop: 11/25/17 03:59 Last Admin: 11/20/17 04:51 Dose: 3 pack Chlorhexidine Gluconate (Chlorhexidine 2% Cloth) 3 pack TOPICAL DAILY@0400 PRN PRN Reason: Extra cloth needed Stop: 11/25/17 03:59 Clonidine HCl (Catapres) 0.1 mg PO Q6H PRN PRN Reason: SYS BP GREATER THAN 170 MMHG Diltiazem HCl (Cardizem Cd 24hr) 180 mg PO DAILY [facility] Last Admin: 11/20/17 08:08 Dose: 180 mg Docusate Sodium (Colace) 100 mg PO BID [facility] Last Admin: 11/20/17 08:08 Dose: 100 mg Enalaprilat (Vasotec Inj) 1.25 mg IV.PUSH Q8H PRN PRN Reason: Blood pressure 180/95 Furosemide (Lasix) 40 mg PO DAILY [facility] Last Admin: 11/20/17 08:08 Dose: 40 mg Sodium Chloride (Ns Inj) 1,000 mls @ 100 mls/hr IV.CONT .Q10H [facility] Last Admin: 11/20/17 05:34 Dose: 100 mls/hr Calcium Chloride 0.3 gm/ (Sodium Chloride) 103 mls @ 103 mls/hr IV.SIG UNSCH PRN PRN Reason: SEE LABEL COMMENTS Magnesium Sulfate Inj 2 gm/ (Sodium Chloride) 100 mls @ 100 mls/hr IV.SIG UNSCH PRN PRN Reason: MAGNESIUM LESS THAN 2 Potassium Chloride (Kcl 20 Meq Premix Inj) 20 meq in 100 mls @ 50 mls/hr IV.SIG UNSCH PRN PRN Reason: POTASSIUM LESS THAN 4 Last Admin: 11/20/17 11:05 Dose: 50 mls/hr Sodium Chloride (Ns Inj) 250 mls @ 15 mls/hr IV.SIG ONCE [facility] Stop: 11/21/17 02:39 Labetalol HCl (Trandate Inj) 10 mg IV.PUSH Q1H PRN PRN Reason: SYS BP GREATER THAN 170 MMHG Lactulose (Lactulose Liq) 30 ml PO DAILY PRN PRN Reason: SEVERE CONSITIPATION Levetiracetam (Keppra) 500 mg PO BID [facility] Last Admin: 11/20/17 08:08 Dose: 500 mg Lisinopril (Prinivil) 10 mg PO DAILY [facility] Last Admin: 11/20/17 08:08 Dose: 10 mg Lorazepam (Ativan Inj) 1 mg IV.PUSH Q1H PRN PRN Reason: SEIZURES Metoprolol Tartrate (Lopressor) 50 mg PO BID [facility] Last Admin: 11/20/17 08:08 Dose: 50 mg Ondansetron HCl (Zofran Inj) 4 mg IV.PUSH Q6H PRN PRN Reason: NAUSEA OR VOMITING Pantoprazole Sodium (Protonix Inj) 40 mg IV.PUSH Q24H [facility] Last Admin: 11/19/17 18:45 Dose: 40 mg Pilocarpine HCl (Salagen) 5 mg PO BID [facility] Last Admin: 11/20/17 08:07 Dose: 5 mg Sennosides (Senokot) 17.2 mg PO Q12H PRN PRN Reason: Moderate Constipation Sodium Chloride (Ns Flush) 2 ml IV.FLUSH UNSCH PRN PRN Reason: FLUSH AFTER USING IV ACCESS Allergies Allergy/AdvReac Type Severity Reaction Status Date / Time penicillin G Allergy Mild Unverified 09/25/17 12:18 Home Medications Medication Instructions Recorded Confirmed Type aspirin [Aspir-81] 81 mg PO DAILY 11/19/17 11/19/17 History atorvastatin 80 mg PO DAILY 11/19/17 11/19/17 History furosemide [Lasix] 40 mg PO DAILY 11/19/17 11/19/17 History lisinopril 10 mg PO DAILY 11/19/17 11/19/17 History metoprolol tartrate 50 mg PO BID 11/19/17 11/19/17 History pilocarpine HCl 5 mg PO BID 11/19/17 11/19/17 History warfarin 6 mg PO DAILY 11/19/17 11/19/17 History Exam Vital signs: Vital Signs 11/19/17 15:02 11/19/17 15:36 11/19/17 15:52 Temperature 100.9 F H 99.4 F Pulse Rate 118 H 113 H 108 H Respiratory Rate 18 17 17 Blood Pressure 141/69 H 166/65 H 139/64 Pulse Oximetry 100 97 97 11/19/17 16:06 11/19/17 16:23 11/19/17 17:00 Temperature 98.4 F 100.0 F H 98.6 F Pulse Rate 112 H 115 H 126 H Respiratory Rate 20 17 32 H Blood Pressure 136/64 145/65 H 155/76 H Pulse Oximetry 98 97 100 11/19/17 20:00 11/19/17 21:37 11/20/17 00:00 Temperature 98.4 F 98.6 F Pulse Rate 114 H 82 Respiratory Rate 18 18 Blood Pressure 133/64 120/58 L Pulse Oximetry 96 94 L 96 11/20/17 00:35 11/20/17 01:00 11/20/17 01:07 Temperature Pulse Rate Respiratory Rate 18 18 Blood Pressure Pulse Oximetry 89 L 11/20/17 02:00 11/20/17 04:00 11/20/17 08:00 Temperature 97.5 F L 97.7 F Pulse Rate 75 94 H Respiratory Rate 17 23 Blood Pressure 126/63 134/63 Pulse Oximetry 98 97 11/20/17 11:41 11/20/17 11:57 11/20/17 12:00 Temperature 97.8 F 98.9 F 98.9 F Pulse Rate 78 76 76 Respiratory Rate 23 21 21 Blood Pressure 139/63 127/63 127/63 Pulse Oximetry 96 93 L 93 L 11/20/17 12:47 11/20/17 13:03 11/20/17 13:19 Temperature 97.8 F 97.6 F 97.8 F Pulse Rate 75 90 75 Respiratory Rate 22 25 H Blood Pressure 136/64 136/65 139/69 Pulse Oximetry 95 96 97 Intake & Output 11/19/17 11/20/17 11/20/17 18:59 06:59 18:59 Intake Total 1128 / 1128 1051 / 1051 250 / 250 Output Total 600 / 600 Balance 1128 / 1128 451 / 451 250 / 250 Weight 121.4 kg 121.1 kg Intake: IV 500 / 500 1051 / 1051 NS Inj 1,000 ML @ 100 mls/hr IV 1000 / 1000 .CONT .Q10H HEBER Rx#:[id number] Vitamin K Inj 10 MG In D5W Inj 51 / 51 50 ML @ 102 mls/hr IV.SIG ONCE ONE Rx#:[id number] Other 250 / 250 Rbc As-3 Leukoreduced Unit 250 / 250 [id number] Intake (Blood Product) Amt 628 / 628 0 / 0 Plasma Thawed 5 Day Cp2d Unit 329 / 329 [id number] Plasma Thawed 5 Day Cp2d Unit 299 / 299 [id number] Rbc As-3 Leukoreduced Unit 0 / 0 [id number] Output: Urine 600 / 600 Other: # Voids 3 Weight On Admission 117.934 kg heart reg lung cta abd s/nt ext pedal edema post scalp blood. Results - Labs CBC & Chem 7: 11/20/17 03:37 11/20/17 03:37 Labs: Laboratory Results - last 24 hr 11/19/17 11/19/17 11/19/17 14:32 15:45 20:00 WBC RBC Hgb Hct MCV MCH MCHC RDW Plt Count MPV Neut % (Auto) Lymph % (Auto) [place] % (Auto) Eos % (Auto) Baso % (Auto) Neut # (Auto) Lymph # (Auto) [place] # (Auto) Eos # (Auto) Baso # (Auto) WBC Differential Differential Comment PT INR Sodium Potassium Chloride Carbon Dioxide Anion Gap BUN Creatinine Estimated GFR Random Glucose Lactic Acid 1.6 Calcium Magnesium Nasal Screen MRSA (PCR) Not detected MTS Gel Crossmatch Blood Bank Comment Bld Prod Order Comment 11/19/17 11/20/17 11/20/17 20:15 03:37 03:37 WBC 8.4 RBC 2.12 L Hgb 7.2 L Hct 21.5 L MCV 101.1 H MCH 34.0 MCHC 33.6 RDW 22.2 H Plt Count 103 L MPV 7.8 Neut % (Auto) 76.0 H Lymph % (Auto) 13.9 [place] % (Auto) 8.6 H Eos % (Auto) 0.9 Baso % (Auto) 0.6 Neut # (Auto) 6.4 Lymph # (Auto) 1.2 [place] # (Auto) 0.7 Eos # (Auto) 0.1 Baso # (Auto) 0.0 WBC Differential . Differential Comment Auto diff final PT 21.7 H D 14.1 H INR 2.1 1.4 Sodium Potassium Chloride Carbon Dioxide Anion Gap BUN Creatinine Estimated GFR Random Glucose Lactic Acid Calcium Magnesium Nasal Screen MRSA (PCR) MTS Gel Crossmatch Blood Bank Comment Bld Prod Order Comment 11/20/17 11/20/17 03:37 09:21 WBC RBC Hgb Hct MCV MCH MCHC RDW Plt Count MPV Neut % (Auto) Lymph % (Auto) [place] % (Auto) Eos % (Auto) Baso % (Auto) Neut # (Auto) Lymph # (Auto) [place] # (Auto) Eos # (Auto) Baso # (Auto) WBC Differential Differential Comment PT INR Sodium 139 Potassium 3.3 L Chloride 99 Carbon Dioxide 29.8 Anion Gap 10 BUN 17 Creatinine 0.93 Estimated GFR 78 L Random Glucose 89 Lactic Acid Calcium 7.8 L Magnesium 2.0 Nasal Screen MRSA (PCR) MTS Gel Crossmatch See Detail Blood Bank Comment Bld Prod Order Comment - Imaging Impressions Cervical Spine CT 11/19/17 12:31 CONCLUSION: 1. No acute cervical spine abnormality is identified. 2. Moderate to severe multilevel degenerative change of the cervical spine, as above, with multiple areas of moderate to severe neural foraminal stenosis. Head MRI 11/20/17 00:00 CONCLUSION: 1. Right orbital frontal hematoma, likely isolated however underlying developmental venous anomaly cannot be excluded. Follow-up in 2-3 months with pre and postcontrast MRI suggested. 2. Minimal left parietal subarachnoid blood. 3. Benign appearing pachymeningeal contrast enhancement, diffuse Chest X-Ray 11/20/17 06:00 CONCLUSION: Radiographic pattern suggesting pulmonary edema. Appearance is stable from the prior study. Assessment and Plan - Assessment (1) Intracranial hematoma Code(s): S06.369A - Traumatic hemorrhage of cerebrum, unspecified, with loss of consciousness of unspecified duration, initial encounter Status: Acute Plan: -s/p fall. -Pt with afib, cad/cabg x 4, htn, hx cva's s/p fall. anticoagulated with coumadin also pt has been undergoing anemia w/up by pcp and hematology since 06/16. outpt hgb has been around 8. -s/p ffp x 2 and vitamin k -Right Intraparenchymal hemorrhage and left parietal sah CT Head: 11/19 CONCLUSION: 1. 2.5 x 3.1 cm right anterior frontal intraparenchymal hematoma with region of masslike decreased density anteriorly. There is mild associated mass effect without midline shift. Recommend contrast-enhanced MRI examination to exclude underlying mass once the patient is stable. 2. Small amount of subarachnoid hemorrhage in the left frontal high convexities near the vertex. 3. No hydrocephalus, midline shift or downward herniation.. MRI Head 822: CONCLUSION: 1. Right orbital frontal hematoma, likely isolated however underlying developmental venous anomaly cannot be excluded. Follow-up in 2-3 months with pre and postcontrast MRI suggested. 2. Minimal left parietal subarachnoid blood. 3. Benign appearing patchy meningeal contrast enhancement, diffuse -transfer to med/surg ordered. -PT -dvt prophylaxis -AED keppra for sz prophylaxis. -ccb/bb for afib. currently controlled. coumadin reversed. -cont harpal for bp control -kcl replaced (2) Subarachnoid hemorrhage Code(s): I60.9 - Nontraumatic subarachnoid hemorrhage, unspecified Status: Acute (3) Atrial fibrillation with RVR Code(s): I48.91 - Unspecified atrial fibrillation Status: Chronic (4) CAD (coronary artery disease) Code(s): I25.10 - Atherosclerotic heart disease of [place] coronary artery without angina pectoris Status: Acute (1) Intracranial hematoma Qualifiers: Encounter type: initial encounter Laterality: right Loss of consciousness presence/duration: without LOC Qualified Code(s): S06.340A - Traumatic hemorrhage of right cerebrum without loss of consciousness, initial encounter
--- NOTE | 2017-11-20 18:04 | P.PNNS ---
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 Overnight his neurologic examination has able and follow- up MRI scan also reveals no rehemorrhage. He has a mild headache and chronic neck discomfort but otherwise no complaints. Physical Exam Vital signs: Vital Signs 11/19/17 20:00 11/19/17 21:37 11/20/17 00:00 Temperature 98.4 F 98.6 F Pulse Rate 114 H 82 Respiratory Rate 18 18 Blood Pressure 133/64 120/58 L Pulse Oximetry 96 94 L 96 11/20/17 00:35 11/20/17 01:00 11/20/17 01:07 Temperature Pulse Rate Respiratory Rate 18 18 Blood Pressure Pulse Oximetry 89 L 11/20/17 02:00 11/20/17 04:00 11/20/17 08:00 Temperature 97.5 F L 97.7 F Pulse Rate 75 94 H Respiratory Rate 17 23 Blood Pressure 126/63 134/63 Pulse Oximetry 98 97 11/20/17 11:41 11/20/17 11:57 11/20/17 12:00 Temperature 97.8 F 98.9 F 98.9 F Pulse Rate 78 76 76 Respiratory Rate 23 21 21 Blood Pressure 139/63 127/63 127/63 Pulse Oximetry 96 93 L 93 L 11/20/17 12:47 11/20/17 13:03 11/20/17 13:19 Temperature 97.8 F 97.6 F 97.8 F Pulse Rate 75 90 75 Respiratory Rate 22 25 H Blood Pressure 136/64 136/65 139/69 Pulse Oximetry 95 96 97 11/20/17 14:19 Temperature 98.0 F Pulse Rate 74 Respiratory Rate 24 Blood Pressure 136/63 Pulse Oximetry 94 L Intake & Output 11/19/17 11/20/17 11/20/17 18:59 06:59 18:59 Intake Total 1128 / 1128 1051 / 1051 250 / 250 Output Total 600 / 600 Balance 1128 / 1128 451 / 451 250 / 250 Weight 121.4 kg 121.1 kg Intake: IV 500 / 500 1051 / 1051 NS Inj 1,000 ML @ 100 mls/hr IV 1000 / 1000 .CONT .Q10H HEBER Rx#:[id number] Vitamin K Inj 10 MG In D5W Inj 51 / 51 50 ML @ 102 mls/hr IV.SIG ONCE ONE Rx#:[id number] Other 250 / 250 Rbc As-3 Leukoreduced Unit 250 / 250 [id number] Intake (Blood Product) Amt 628 / 628 0 / 0 Plasma Thawed 5 Day Cp2d Unit 329 / 329 [id number] Plasma Thawed 5 Day Cp2d Unit 299 / 299 [id number] Rbc As-3 Leukoreduced Unit 0 / 0 [id number] Output: Urine 600 / 600 Other: # Voids 3 Weight On Admission 117.934 kg - Constitutional no acute distress - Routine HEENT Exam Head: Present: abrasion Eye: Present: EOMI, PERRL ENT: Present: mucous membranes moist, oropharynx clear, external ear normal - Routine Neck Exam Present: supple, full ROM Comments: Complains of chronic neck discomfort - Routine Respiratory Exam Present: CTA bilaterally - Routine Cardiovascular Exam Present: irregularly irregular - Routine Abdominal Exam Present: soft, normoactive bowel sounds - Routine Extremities Exam Present: edema - Routine Skin Exam Present: intact - Routine Neurological Exam Present: oriented X3, CN II-XII intact, plantar reflex, moving all extremities, normal speech - Detailed Neurological Exam: Coma Scale Eye Opening: Spontaneous Verbal Response: Oriented Motor Response: Obey commands [place] Coma Scale Total: 15 - Routine Psychiatric Exam Present: normal affect, normal thought process, cooperative, good judgment Assessment and Plan - Assessment (1) Traumatic brain injury Code(s): S06.9X9A - Unspecified intracranial injury with loss of consciousness of unspecified duration, initial encounter Status: Acute Qualifiers: Encounter type: initial encounter Loss of consciousness presence/duration: without LOC Qualified Code(s): S06.9X0A - Unspecified intracranial injury without loss of consciousness, initial encounter (2) Coagulopathy Code(s): D68.9 - Coagulation defect, unspecified Status: Chronic (3) Intracranial hematoma Code(s): S06.369A - Traumatic hemorrhage of cerebrum, unspecified, with loss of consciousness of unspecified duration, initial encounter Status: Acute Qualifiers: Encounter type: initial encounter Laterality: right Loss of consciousness presence/duration: without LOC Qualified Code(s): S06.340A - Traumatic hemorrhage of right cerebrum without loss of consciousness, initial encounter (4) Congestive heart failure Code(s): I50.9 - Heart failure, unspecified Status: Chronic Qualifiers: Heart failure type: unspecified Heart failure chronicity: acute on chronic Qualified Code(s): I50.9 - Heart failure, unspecified (5) Atrial fibrillation with RVR Code(s): I48.91 - Unspecified atrial fibrillation Status: Chronic - Plan 81-year-old gentleman who suffered from a right frontal lobe hemorrhage along with traumatic left frontal subarachnoid hemorrhage without midline shift. Neurologically he is been stable with no new deficits noted. MRI scan of the brain does not reveal any underlying mass or rebleed. PT/INR has been corrected this morning. Continue with observation and conservative management. He will likely require rehab placement. Discussed with patient and and answered all their questions. Radiology Note Impressions Head MRI 11/20/17 00:00 CONCLUSION: 1. Right orbital frontal hematoma, likely isolated however underlying developmental venous anomaly cannot be excluded. Follow-up in 2-3 months with pre and postcontrast MRI suggested. 2. Minimal left parietal subarachnoid blood. 3. Benign appearing pachymeningeal contrast enhancement, diffuse Chest X-Ray 11/20/17 06:00 CONCLUSION: Radiographic pattern suggesting pulmonary edema. Appearance is stable from the prior study.
[2017-11-20] MEDS: Pantoprazole Inj 40 MG Vial IV.PUSH SCH (18:23)
[2017-11-21] MEDS: Sod Chloride 0.9% Inj 1,000 ML IV.CONT SCH ×2 (02:42→08:37)
[2017-11-21 04:20] LABS: Baso # (Auto) 0.1 th/mm3 (0.0-0.2); Baso % (Auto) 0.6 % (0.0-2.0); Eos % (Auto) 0.4 % (0.0-4.0); Hemoglobin 9.8 gm/dL (13.0-17.0); Lymph # (Auto) 1.6 th/mm3 (1.0-4.8); Lymph % (Auto) 13.8 % (9.0-44.0); Mean Corpuscular HGB Conc 32.7 % (32.0-36.0); Mean Corpuscular Hemoglobin 32.6 pg (27.0-34.0); Mean Corpuscular Volume 99.8 fL (80.0-100.0); Mean Platelet Volume 7.9 fL (7.0-11.0); Mono # (Auto) 0.9 th/mm3 (0.0-0.9); Neut # (Auto) 9.1 th/mm3 (1.8-7.7); Neut % (Auto) 77.2 % (16.0-70.0); Platelet Count 102 th/mm3 (150-450); Red Cell Distribution Width 21.9 % (11.6-17.2); White Blood Count 11.8 th/mm3 (4.0-11.0)
[2017-11-21 04:38] LABS: Calcium 8.5 mg/dL (8.5-10.1); Potassium 3.7 meq/L (3.5-5.1)
[2017-11-21] MEDS: Chlorhexidine Gluconate 2% 1 Pack (2 Cloths) TOPICAL SCH (04:45)
[2017-11-21 07:32] LABS: Lymphocytes 12 % (9-44); Metamyelocytes 2 % (0-1); Monocytes 5 % (0-8)
[2017-11-21 07:34] LABS: Ovalocytes 1+; Platelet Morphology Normal (Normal)
[2017-11-21] MEDS: Furosemide 40 MG Tablet PO SCH (08:43)
[2017-11-21] MEDS: Docusate Sodium 100 MG Capsule PO SCH ×2 (08:43→20:02)
[2017-11-21] MEDS: Lisinopril 10 MG Tablet PO SCH (08:43)
[2017-11-21] MEDS: Pilocarpine HCl 5 MG Tablet PO SCH ×2 (08:43→20:02)
[2017-11-21] MEDS: Metoprolol Tartrate 50 MG Tablet PO SCH ×2 (08:43→20:02)
[2017-11-21] MEDS: dilTIAZem CD 180 MG Capsule PO SCH (08:43)
[2017-11-21] MEDS: levETIRAcetam 500 MG Tablet PO SCH ×2 (08:43→20:02)
--- NOTE | 2017-11-21 08:59 | P.PNIM ---
Subjective Interval history: nasal congestion denies dysuria to me jackelyn food. Physical Exam Vital signs: Vital Signs 11/20/17 11:41 11/20/17 11:57 11/20/17 12:00 Temperature 97.8 F 98.9 F 98.9 F Pulse Rate 78 76 76 Respiratory Rate 23 21 21 Blood Pressure 139/63 127/63 127/63 Pulse Oximetry 96 93 L 93 L 11/20/17 12:47 11/20/17 13:03 11/20/17 13:19 Temperature 97.8 F 97.6 F 97.8 F Pulse Rate 75 90 75 Respiratory Rate 22 25 H Blood Pressure 136/64 136/65 139/69 Pulse Oximetry 95 96 97 11/20/17 14:19 11/20/17 16:00 11/20/17 19:44 Temperature 98.0 F 98.0 F Pulse Rate 74 80 Respiratory Rate 24 25 H Blood Pressure 136/63 147/70 H Pulse Oximetry 94 L 92 L 99 11/20/17 20:00 11/21/17 00:00 11/21/17 04:00 Temperature 98.3 F 98.4 F 98.4 F Pulse Rate 97 H 92 H 97 H Respiratory Rate 26 H 23 Blood Pressure 171/74 H 158/75 H 162/70 H Pulse Oximetry 95 98 98 Intake & Output 11/20/17 11/21/17 11/21/17 18:59 06:59 18:59 Intake Total 250 / 250 Output Total 375 / 375 0 / 0 Balance -125 / -125 0 / 0 Weight 121.1 kg Intake: Other 250 / 250 Rbc As-3 Leukoreduced Unit 250 / 250 [id number] Intake (Blood Product) Amt 0 / 0 Rbc As-3 Leukoreduced Unit 0 / 0 [id number] Output: Urine 375 / 375 Stool 0 / 0 Other: # Voids 3 # Incontinent Voids 4 heart reg lung cta abd s/nt ext pedal edema Results - Labs CBC & Chem 7: 11/21/17 03:26 11/21/17 03:26 Laboratory Results - last 24 hr 11/20/17 11/21/17 11/21/17 09:21 03:26 03:26 WBC 11.8 H RBC 3.00 L Hgb 9.8 L D Hct 30.0 L MCV 99.8 MCH 32.6 MCHC 32.7 RDW 21.9 H Plt Count 102 L MPV 7.9 Prelim Diff (Auto) Slide review pending Neut % (Auto) 77.2 H Lymph % (Auto) 13.8 [place] % (Auto) 8.0 Eos % (Auto) 0.4 Baso % (Auto) 0.6 Neut # (Auto) 9.1 H Lymph # (Auto) 1.6 [place] # (Auto) 0.9 Eos # (Auto) 0.0 Baso # (Auto) 0.1 WBC Differential Manual diff final Seg Neuts % (Manual) 54 Band Neuts % (Manual) 27 H Lymphocytes % (Manual) 12 Monocytes % (Manual) 5 Metamyelocytes % (Man) 2 H Abs Neuts (Manual) 9.8 H Differential Comment . Platelet Estimate Low L Platelet Morphology Normal Ovalocytes 1+ H Sodium 139 Potassium 3.7 Chloride 97 L Carbon Dioxide 31.0 Anion Gap 11 BUN 17 Creatinine 0.89 Estimated GFR 82 L Random Glucose 98 Calcium 8.5 MTS Gel Crossmatch See Detail Bld Prod Order Comment Microbiology 11/19/17 12:50 Clean Catch Urine Urine Culture - Preliminary Immature growth - reincubate - Imaging Impressions Head MRI 11/20/17 00:00 CONCLUSION: 1. Right orbital frontal hematoma, likely isolated however underlying developmental venous anomaly cannot be excluded. Follow-up in 2-3 months with pre and postcontrast MRI suggested. 2. Minimal left parietal subarachnoid blood. 3. Benign appearing pachymeningeal contrast enhancement, diffuse Assessment and Plan - Assessment (1) Intracranial hematoma Code(s): S06.369A - Traumatic hemorrhage of cerebrum, unspecified, with loss of consciousness of unspecified duration, initial encounter Status: Acute Plan: -s/p fall. -Pt with afib, cad/cabg x 4, htn, hx cva's s/p fall. anticoagulated with coumadin also pt has been undergoing anemia w/up by pcp and hematology since 06/16. outpt hgb has been around 8. -s/p ffp x 2 and vitamin k -Right Intraparenchymal hemorrhage and left parietal sah CT Head: 11/19 CONCLUSION: 1. 2.5 x 3.1 cm right anterior frontal intraparenchymal hematoma with region of masslike decreased density anteriorly. There is mild associated mass effect without midline shift. Recommend contrast-enhanced MRI examination to exclude underlying mass once the patient is stable. 2. Small amount of subarachnoid hemorrhage in the left frontal high convexities near the vertex. 3. No hydrocephalus, midline shift or downward herniation.. MRI Head 822: CONCLUSION: 1. Right orbital frontal hematoma, likely isolated however underlying developmental venous anomaly cannot be excluded. Follow-up in 2-3 months with pre and postcontrast MRI suggested. 2. Minimal left parietal subarachnoid blood. 3. Benign appearing patchy meningeal contrast enhancement, diffuse -transfer to med/surg ordered. -PT -dvt prophylaxis -AED keppra for sz prophylaxis. -ccb/bb for afib. currently controlled. coumadin reversed. -cont harpal for bp control -kcl replacement -stop ivf. taking po. (2) Subarachnoid hemorrhage Code(s): I60.9 - Nontraumatic subarachnoid hemorrhage, unspecified Status: Acute (3) Atrial fibrillation with RVR Code(s): I48.91 - Unspecified atrial fibrillation Status: Chronic (4) CAD (coronary artery disease) Code(s): I25.10 - Atherosclerotic heart disease of [place] coronary artery without angina pectoris Status: Acute (1) Intracranial hematoma Qualifiers: Encounter type: initial encounter Laterality: right Loss of consciousness presence/duration: without LOC Qualified Code(s): S06.340A - Traumatic hemorrhage of right cerebrum without loss of consciousness, initial encounter
[2017-11-21] MEDS: Acetaminophen 325 MG Tablet PO PRN ×2 (09:38→17:56)
--- NOTE | 2017-11-21 09:47 | P.PNNS ---
Subjective Interval history: Pt awake and somewhat somnolent. He answers questions appropriately. States neck discomfort better today. Has some frontal headaches. No n/v. No chest pain or sob. <Eladio Doe - Last Filed: 11/21/17 09:48> Physical Exam Vital signs: Vital Signs 11/20/17 11:41 11/20/17 11:57 11/20/17 12:00 Temperature 97.8 F 98.9 F 98.9 F Pulse Rate 78 76 76 Respiratory Rate 23 21 21 Blood Pressure 139/63 127/63 127/63 Pulse Oximetry 96 93 L 93 L 11/20/17 12:47 11/20/17 13:03 11/20/17 13:19 Temperature 97.8 F 97.6 F 97.8 F Pulse Rate 75 90 75 Respiratory Rate 22 25 H Blood Pressure 136/64 136/65 139/69 Pulse Oximetry 95 96 97 11/20/17 14:19 11/20/17 16:00 11/20/17 19:44 Temperature 98.0 F 98.0 F Pulse Rate 74 80 Respiratory Rate 24 25 H Blood Pressure 136/63 147/70 H Pulse Oximetry 94 L 92 L 99 11/20/17 20:00 11/21/17 00:00 11/21/17 04:00 Temperature 98.3 F 98.4 F 98.4 F Pulse Rate 97 H 92 H 97 H Respiratory Rate 26 H 23 Blood Pressure 171/74 H 158/75 H 162/70 H Pulse Oximetry 95 98 98 Intake & Output 11/20/17 11/21/17 11/21/17 18:59 06:59 18:59 Intake Total 250 / 250 Output Total 375 / 375 0 / 0 Balance -125 / -125 0 / 0 Weight 121.1 kg Intake: Other 250 / 250 Rbc As-3 Leukoreduced Unit 250 / 250 [id number] Intake (Blood Product) Amt 0 / 0 Rbc As-3 Leukoreduced Unit 0 / 0 [id number] Output: Urine 375 / 375 Stool 0 / 0 Other: # Voids 3 # Incontinent Voids 4 - Constitutional no acute distress - Routine HEENT Exam Head: Present: normocephalic, abrasion (Very small abrasion forehead.) Eye: Present: PERRL (Pupils 3mm bialterally reactive bilaterally.). Absent: conjunctival icterus ENT: Absent: oropharynx clear - Routine Neck Exam Present: trachea midline - Routine Respiratory Exam Present: CTA bilaterally. Absent: respiratory distress, rhonchi, wheezes - Routine Cardiovascular Exam Present: RRR, S1, S2. Absent: murmur - Routine Abdominal Exam Present: soft, normoactive bowel sounds. Absent: distended, firm - Routine Extremities Exam Absent: cyanosis - Routine Skin Exam Absent: cyanosis, erythema - Routine Neurological Exam Present: alert, moving all extremities, normal speech. Absent: sensory deficit , motor deficit - Detailed Neurological Exam: Coma Scale Eye Opening: Spontaneous Verbal Response: Oriented Motor Response: Obey commands [place] Coma Scale Total: 15 - Routine Psychiatric Exam Present: cooperative. Absent: normal affect (Flat affect.), anxious, agitated <Eladio Doe - Last Filed: 11/21/17 09:48> Vital signs: Vital Signs 11/20/17 13:03 11/20/17 13:19 11/20/17 14:19 Temperature 97.6 F 97.8 F 98.0 F Pulse Rate 90 75 74 Respiratory Rate 25 H 24 Blood Pressure 136/65 139/69 136/63 Pulse Oximetry 96 97 94 L 11/20/17 16:00 11/20/17 19:44 11/20/17 20:00 Temperature 98.0 F 98.3 F Pulse Rate 80 97 H Respiratory Rate 25 H Blood Pressure 147/70 H 171/74 H Pulse Oximetry 92 L 99 95 11/21/17 00:00 11/21/17 04:00 11/21/17 08:00 Temperature 98.4 F 98.4 F 98 F Pulse Rate 92 H 97 H 84 Respiratory Rate 26 H 23 16 Blood Pressure 158/75 H 162/70 H 148/69 H Pulse Oximetry 98 98 11/21/17 10:08 Temperature Pulse Rate Respiratory Rate 16 Blood Pressure Pulse Oximetry Intake & Output 11/20/17 11/21/17 11/21/17 18:59 06:59 18:59 Intake Total 250 / 250 120 / 120 Output Total 375 / 375 0 / 0 150 / 150 Balance -125 / -125 0 / 0 -30 / -30 Weight 121.1 kg Intake: Oral 120 / 120 Other 250 / 250 Rbc As-3 Leukoreduced Unit 250 / 250 [id number] Intake (Blood Product) Amt 0 / 0 Rbc As-3 Leukoreduced Unit 0 / 0 [id number] Output: Urine 375 / 375 150 / 150 Stool 0 / 0 Other: # Voids 3 # Incontinent Voids 4 <Nilay Monroe - Last Filed: 11/21/17 12:56> Assessment and Plan - Assessment (1) Intracranial hematoma Code(s): S06.369A - Traumatic hemorrhage of cerebrum, unspecified, with loss of consciousness of unspecified duration, initial encounter Status: Acute Qualifiers: Encounter type: initial encounter Laterality: right Loss of consciousness presence/duration: without LOC Qualified Code(s): S06.340A - Traumatic hemorrhage of right cerebrum without loss of consciousness, initial encounter (2) Subarachnoid hemorrhage Code(s): I60.9 - Nontraumatic subarachnoid hemorrhage, unspecified Status: Acute (3) Congestive heart failure Code(s): I50.9 - Heart failure, unspecified Status: Chronic Qualifiers: Heart failure type: unspecified Heart failure chronicity: acute on chronic Qualified Code(s): I50.9 - Heart failure, unspecified (4) Atrial fibrillation with RVR Code(s): I48.91 - Unspecified atrial fibrillation Status: Chronic (5) Traumatic brain injury Code(s): S06.9X9A - Unspecified intracranial injury with loss of consciousness of unspecified duration, initial encounter Status: Acute Qualifiers: Encounter type: initial encounter Loss of consciousness presence/duration: without LOC Qualified Code(s): S06.9X0A - Unspecified intracranial injury without loss of consciousness, initial encounter (6) Coagulopathy Code(s): D68.9 - Coagulation defect, unspecified Status: Chronic (7) CAD (coronary artery disease) Code(s): I25.10 - Atherosclerotic heart disease of [place] coronary artery without angina pectoris Status: Acute - Plan 81-year-old gentleman who suffered from a right frontal lobe hemorrhage along with traumatic left frontal subarachnoid hemorrhage without midline shift. Neurologically he is been stable with no new deficits noted. MRI scan of the brain does not reveal any underlying mass or rebleed. PT/INR has been corrected. P: Continue with observation and conservative management. He will likely require rehab placement. Continue to get oob and increase activity. Radiologist recommends Follow up MRI with and without in 2-3 months. <Eladio Doe - Last Filed: 11/21/17 09:48> - Assessment (1) Traumatic brain injury Code(s): S06.9X9A - Unspecified intracranial injury with loss of consciousness of unspecified duration, initial encounter Status: Acute Qualifiers: Encounter type: initial encounter Loss of consciousness presence/duration: without LOC Qualified Code(s): S06.9X0A - Unspecified intracranial injury without loss of consciousness, initial encounter (2) Coagulopathy Code(s): D68.9 - Coagulation defect, unspecified Status: Chronic (3) Intracranial hematoma Code(s): S06.369A - Traumatic hemorrhage of cerebrum, unspecified, with loss of consciousness of unspecified duration, initial encounter Status: Acute Qualifiers: Encounter type: initial encounter Laterality: right Loss of consciousness presence/duration: without LOC Qualified Code(s): S06.340A - Traumatic hemorrhage of right cerebrum without loss of consciousness, initial encounter (4) Congestive heart failure Code(s): I50.9 - Heart failure, unspecified Status: Chronic Qualifiers: Heart failure type: unspecified Heart failure chronicity: acute on chronic Qualified Code(s): I50.9 - Heart failure, unspecified (5) Atrial fibrillation with RVR Code(s): I48.91 - Unspecified atrial fibrillation Status: Chronic - Attending Attestation The exam, history, and the medical decision-making described in the above note were completed with the assistance of the mid-level provider. I reviewed and agree with the findings presented. I attest that I had a [id number] encounter with the patient on the same day, and personally performed and documented my assessment and findings in the medical record. Overall stable neurologically. Awaiting transfer to neuro floor and then subsequent rehab placement. Discussed with patient and updated at bedside. <Nilay Monroe - Last Filed: 11/21/17 12:56>
--- NOTE | 2017-11-21 13:17 | P.PNCC ---
Subjective Brief History: HPI narrative: 81-year-old male with a history of CHF, CABG, CVA is brought to the emergency department by EMS for evaluation of fall with head injury. The patient states that last night when he was walking into his bathroom his right knee "gave out" and he fell hitting the back of his head on the bathroom cabinet. Denies loss of consciousness. He is anticoagulated on warfarin. [facility] came out last night after the fall however patient refused to be transported to the hospital. States that this morning his called EMS as he has had worsening weakness and he was agreeable to transport today. The patient states that he has had progressive generalized weakness over the last 3 months. He has also had worsening anemia over the past several months, is being followed by hematology, received 2 units of blood transfusion as an outpatient yesterday. States he is unsure why he is anemic, denies any black or bloody stool. He does have lower extremity edema which he states is worse over the last week. Denies any fever, chills, nausea, vomiting, chest pain, shortness of breath, abdominal pain, headache, dizziness, numbness or tingling, one-sided weakness. Patient was worked up in the emergency room and full diagnostic workup was completed Traumatic injury include Right frontal intraparenchymal and subarachnoid bleed About 3 cm rounded right frontal cerebral / mass MRI tomorrow In addition patient has multiple medical problems including CHF previous CVA coronary artery disease and atrial fibrillation for which he is on Coumadin. Anticoagulation will be immediately reversed with 2 units of FFP and vitamin K Considering the patient has stable as far as the bleeding is concerned and neurologically intact I do not believe he needs K [facility] at this time 24 Hour Review/Hospital Course: 11/20/2017 Neurologically patient is awake alert and oriented 3 [place] Coma Scale is 15 No gross motoric deficit Patient has been doing well throughout the night MRI brain this morning with possible consult to neurology Hemodynamically patient is stable. He is in chronic atrial fibrillation and on arrival was on Coumadin. Patient received 2 units of FFP and vitamin K to reverse Coumadin effects and anticoagulated state. He is clearly at risk off cardioarterial embolism in chronic atrial fibrillation without Coumadin however the risk versus benefit is unquestionably to normalization of the coagulation profile Hemoglobin 7.2 g/dL we will transfuse 2 units PRBC in face of cardiac issues and chronic anemia patient states he has Bilateral breath sounds good inspiratory effort Renal function preserved. Slightly volume overloaded and will give patient some Lasix with administration of blood Patient can be transferred to floor today will consult hospitalist and further care per clinical indices Neurosurgery help greatly appreciated 11/21/2017 Patient is awake alert and oriented neurologically fully intact but clearly very weak Hemodynamically stable Patient has been awaiting floor bed since yesterday and needs to go to rehab / SNF, as soon as bed is available. In face of the intracranial hemorrhage patient will have to be off Coumadin for at least another 3 weeks and then can be restarted but I would probably suggest a different medication probably factor X inhibitor like Eliquis which will be easier to administer and control. Patient will be transferred to internal medicine service tomorrow Objective Vital Signs / I&O: Vital Signs 11/20/17 13:19 11/20/17 14:19 11/20/17 16:00 Temperature 97.8 F 98.0 F 98.0 F Pulse Rate 75 74 80 Respiratory Rate 25 H 24 25 H Blood Pressure 139/69 136/63 147/70 H Pulse Oximetry 97 94 L 92 L 11/20/17 19:44 11/20/17 20:00 11/21/17 00:00 Temperature 98.3 F 98.4 F Pulse Rate 97 H 92 H Respiratory Rate 26 H Blood Pressure 171/74 H 158/75 H Pulse Oximetry 99 95 98 11/21/17 04:00 11/21/17 08:00 11/21/17 10:08 Temperature 98.4 F 98 F Pulse Rate 97 H 84 Respiratory Rate 23 16 16 Blood Pressure 162/70 H 148/69 H Pulse Oximetry 98 Intake & Output 11/20/17 11/21/17 11/21/17 18:59 06:59 18:59 Intake Total 250 / 250 120 / 120 Output Total 375 / 375 0 / 0 150 / 150 Balance -125 / -125 0 / 0 -30 / -30 Weight 121.1 kg Intake: Oral 120 / 120 Other 250 / 250 Rbc As-3 Leukoreduced Unit 250 / 250 [id number] Intake (Blood Product) Amt 0 / 0 Rbc As-3 Leukoreduced Unit 0 / 0 [id number] Output: Urine 375 / 375 150 / 150 Stool 0 / 0 Other: # Voids 3 # Incontinent Voids 4 Result Diagrams: 11/21/17 03:26 11/21/17 03:26
[2017-11-21] MEDS: Pantoprazole Inj 40 MG Vial IV.PUSH SCH (17:55)
[2017-11-22] MEDS: Chlorhexidine Gluconate 2% 1 Pack (2 Cloths) TOPICAL SCH (03:27)
[2017-11-22] MEDS: Lisinopril 10 MG Tablet PO SCH (08:09)
[2017-11-22] MEDS: Docusate Sodium 100 MG Capsule PO SCH (08:09)
[2017-11-22] MEDS: Furosemide 40 MG Tablet PO SCH (08:09)
[2017-11-22] MEDS: dilTIAZem CD 180 MG Capsule PO SCH (08:09)
[2017-11-22] MEDS: levETIRAcetam 500 MG Tablet PO SCH (08:09)
[2017-11-22] MEDS: Pilocarpine HCl 5 MG Tablet PO SCH (08:09)
[2017-11-22] MEDS: Metoprolol Tartrate 50 MG Tablet PO SCH (08:10)
--- NOTE | 2017-11-22 10:36 | P.PNIM ---
Subjective Interval history: no new complaints family at bedside Physical Exam Vital signs: Vital Signs 11/21/17 12:00 11/21/17 16:00 11/21/17 20:00 Temperature 97.5 F L 98.5 F 99.1 F Pulse Rate 84 80 90 Respiratory Rate 12 21 22 Blood Pressure 128/60 134/65 134/62 Pulse Oximetry 97 100 90 L 11/21/17 20:32 11/22/17 00:00 11/22/17 03:22 Temperature 98.0 F 97.9 F Pulse Rate 84 95 H Respiratory Rate 20 20 Blood Pressure 145/65 H 162/73 H Pulse Oximetry 95 98 93 L 11/22/17 07:22 11/22/17 08:38 Temperature 97.6 F Pulse Rate 108 H 107 H Respiratory Rate 18 18 Blood Pressure 137/82 Pulse Oximetry 97 97 Intake & Output 11/21/17 11/22/17 11/22/17 18:59 06:59 18:59 Intake Total 660 / 660 1350 / 1350 Output Total 600 / 600 475 / 475 Balance 60 / 60 875 / 875 Weight 119.5 kg Intake: IV 1350 / 1350 KCl 20 mEq Premix Inj 20 meq In 100 / 100 100 ml @ 50 mls/hr IV.SIG UNSCH PRN Rx#:[id number] Oral 660 / 660 Output: Urine 600 / 600 475 / 475 Other: # Incontinent Voids 1 Date of Last Bowel Movement 11/20/17 heart irreg lung cta abd s/nt ext no edema Results - Labs CBC & Chem 7: 11/21/17 03:26 11/21/17 03:26 Microbiology 11/19/17 12:50 Clean Catch Urine Urine Culture - Final 10-50,000 cfu/mL mixed gram positive edouard (probable contaminants) Assessment and Plan - Assessment (1) Intracranial hematoma Code(s): S06.369A - Traumatic hemorrhage of cerebrum, unspecified, with loss of consciousness of unspecified duration, initial encounter Status: Acute Plan: -s/p fall. -Pt with afib, cad/cabg x 4, htn, hx cva's s/p fall. anticoagulated with coumadin also pt has been undergoing anemia w/up by pcp and hematology since 06/16. outpt hgb has been around 8. -s/p ffp x 2 and vitamin k -Right Intraparenchymal hemorrhage and left parietal sah CT Head: 11/19 CONCLUSION: 1. 2.5 x 3.1 cm right anterior frontal intraparenchymal hematoma with region of masslike decreased density anteriorly. There is mild associated mass effect without midline shift. Recommend contrast-enhanced MRI examination to exclude underlying mass once the patient is stable. 2. Small amount of subarachnoid hemorrhage in the left frontal high convexities near the vertex. 3. No hydrocephalus, midline shift or downward herniation.. MRI Head 822: CONCLUSION: 1. Right orbital frontal hematoma, likely isolated however underlying developmental venous anomaly cannot be excluded. Follow-up in 2-3 months with pre and postcontrast MRI suggested. 2. Minimal left parietal subarachnoid blood. 3. Benign appearing patchy meningeal contrast enhancement, diffuse -transferred to med/surg . stable -discussed with pt and family. dc to snf. -pt will need to f/u nsg and reevaluate safety of resuming anticoagulation in next 3-4 weeks. -PT -dvt prophylaxis -AED keppra for sz prophylaxis. -ccb/bb for afib. currently controlled. coumadin reversed. -cont harpal for bp control -kcl replacement (2) Subarachnoid hemorrhage Code(s): I60.9 - Nontraumatic subarachnoid hemorrhage, unspecified Status: Acute (3) Atrial fibrillation with RVR Code(s): I48.91 - Unspecified atrial fibrillation Status: Chronic (4) CAD (coronary artery disease) Code(s): I25.10 - Atherosclerotic heart disease of [place] coronary artery without angina pectoris Status: Acute (1) Intracranial hematoma Qualifiers: Encounter type: initial encounter Laterality: right Loss of consciousness presence/duration: without LOC Qualified Code(s): S06.340A - Traumatic hemorrhage of right cerebrum without loss of consciousness, initial encounter
--- NOTE | 2017-11-22 11:52 | P.DS ---
Date of admission: 11/19/17 15:26 Primary care physician: Madhav Mcleod MD Brief History from admission: S/P Fall DS: Diagnosis - Discharge Diagnosis (1) Anemia Status: Acute (2) Subarachnoid hemorrhage Status: Acute (3) Atrial fibrillation with RVR Status: Chronic (4) Coagulopathy Status: Chronic DS: Medications - Discharge Medications Prescriptions: diltiazem HCl [Cardizem CD] 180 mg PO DAILY 30 Days #30 cap levetiracetam [Keppra] 500 mg PO BID 30 Days #60 tab DS: Summary Hospital Course: 11/20/2017 Neurologically patient is awake alert and oriented 3 Lance Coma Scale is 15 No gross motoric deficit Patient has been doing well throughout the night MRI brain this morning with possible consult to neurology Hemodynamically patient is stable. He is in chronic atrial fibrillation and on arrival was on Coumadin. Patient received 2 units of FFP and vitamin K to reverse Coumadin effects and anticoagulated state. He is clearly at risk off cardioarterial embolism in chronic atrial fibrillation without Coumadin however the risk versus benefit is unquestionably to normalization of the coagulation profile Hemoglobin 7.2 g/dL we will transfuse 2 units PRBC in face of cardiac issues and chronic anemia patient states he has Bilateral breath sounds good inspiratory effort Renal function preserved. Slightly volume overloaded and will give patient some Lasix with administration of blood Patient can be transferred to floor today will consult hospitalist and further care per clinical indices Neurosurgery help greatly appreciated 11/21/2017 Patient is awake alert and oriented neurologically fully intact but clearly very weak Hemodynamically stable Patient has been awaiting floor bed since yesterday and needs to go to rehab / SNF, as soon as bed is available. In face of the intracranial hemorrhage patient will have to be off Coumadin for at least another 3 weeks and then can be restarted but I would probably suggest a different medication probably factor X inhibitor like Eliquis which will be easier to administer and control. Patient will be transferred to internal medicine service tomorrow 11/22/17 Clear by Hospitalist to go to SNF today A&O, no complaints INJURIES: Left frontal SAH Right frontal IPH w/ hypodensity mass Left frontal SAH, Right frontal IPH w/ hypodensity mass Neurosurgery consulted, F/U outpatient Supportive care MRI brain- R frontal hematoma, R/O venous anomaly with F/U MRI. diffuse pachymeningeal contrast-enhancement which appears benign. F/U with neurologist as outpatient Keppra x 7 days then DC Hold Coumadin until clear by NS F/U with Hematology as outpatient for anemia Plan of care discussed with patient and sister at bedside. Collaborating Trauma MD agrees with plan. Case management consulted to assist with discharge planning. Patient is clear from Trauma surgery to safely discharge to SNF. - Time Spent with Patient Total time spent providing and/or coordinating discharge services: Greater than 30 minutes - Quality: VTE Deep Vein Thrombosis/Pulmonary Embolism Present on Admission: No Exam Vital signs: Vital Signs 11/21/17 12:00 11/21/17 16:00 11/21/17 20:00 Temperature 97.5 F L 98.5 F 99.1 F Pulse Rate 84 80 90 Respiratory Rate 12 21 22 Blood Pressure 128/60 134/65 134/62 Pulse Oximetry 97 100 90 L 11/21/17 20:32 11/22/17 00:00 11/22/17 03:22 Temperature 98.0 F 97.9 F Pulse Rate 84 95 H Respiratory Rate 20 20 Blood Pressure 145/65 H 162/73 H Pulse Oximetry 95 98 93 L 11/22/17 07:22 11/22/17 08:38 Temperature 97.6 F Pulse Rate 108 H 107 H Respiratory Rate 18 18 Blood Pressure 137/82 Pulse Oximetry 97 97 Intake & Output 11/21/17 11/22/17 11/22/17 18:59 06:59 18:59 Intake Total 660 / 660 1350 / 1350 Output Total 600 / 600 475 / 475 Balance 60 / 60 875 / 875 Weight 119.5 kg Intake: IV 1350 / 1350 KCl 20 mEq Premix Inj 20 meq In 100 / 100 100 ml @ 50 mls/hr IV.SIG UNSCH PRN Rx#:[id number] Oral 660 / 660 Output: Urine 600 / 600 475 / 475 Other: # Incontinent Voids 1 Date of Last Bowel Movement 11/20/17 Narrative: GENERAL: 81 year old well-nourished male lying in bed in no acute distress. SKIN: Warm and dry. HEAD:Normocephalic. ENT: No nasal bleeding or discharge. Mucous membranes pink and moist. NECK: Trachea midline. No JVD. CARDIOVASCULAR: Regular rate and rhythm. RESPIRATORY: No accessory muscle use. Clear to auscultation. Breath sounds equal bilaterally. GASTROINTESTINAL: Abdomen soft, non-tender, nondistended. + BS MUSCULOSKELETAL: Extremities without cyanosis, or edema. MAEW, + perfused NEUROLOGICAL: Awake and alert. Normal speech. Results Procedures completed during hospitalization: NA - Impressions ITS Impressions Cervical Spine CT 11/19/17 12:31 CONCLUSION: 1. No acute cervical spine abnormality is identified. 2. Moderate to severe multilevel degenerative change of the cervical spine, as above, with multiple areas of moderate to severe neural foraminal stenosis. Head CT 11/19/17 12:31 CONCLUSION: 1. 2.5 x 3.1 cm right anterior frontal intraparenchymal hematoma with region of masslike decreased density anteriorly. There is mild associated mass effect without midline shift. Recommend contrast-enhanced MRI examination to exclude underlying mass once the patient is stable. 2. Small amount of subarachnoid hemorrhage in the left frontal high convexities near the vertex. 3. No hydrocephalus, midline shift or downward herniation.. Head MRI 11/20/17 00:00 CONCLUSION: 1. Right orbital frontal hematoma, likely isolated however underlying developmental venous anomaly cannot be excluded. Follow-up in 2-3 months with pre and postcontrast MRI suggested. 2. Minimal left parietal subarachnoid blood. 3. Benign appearing pachymeningeal contrast enhancement, diffuse Chest X-Ray 11/20/17 06:00 CONCLUSION: Radiographic pattern suggesting pulmonary edema. Appearance is stable from the prior study. Discharge Plan - Discharge Disposition Patient Disposition: 03 Discharge to SNF - Discharge Condition Condition: Stable - Discharge Order Discharge Orders: Discharge Order (Routine); Ordered 11/22/17 Ordered By: Anderson Roche - Discharge Details Anticipated Discharge Date: 11/22/17 - Physicians Team Primary Care Provider: Madhav Mcleod Attending Provider: Mook Gomes Other Providers: Nilay Monroe MD ; Edward Alexis MD ; Steffen Raygoza MD ; Systems[facility] ; Kevin Cummins MD ; Jackie Parsons ARNP ; Mook Gomes MD ; Sara Yang MD ; Milton Verduzco ARNP ; Braden Miles MD ; Goyo Chapin MD ; Anderson Roche MD ; [facility], [place]
[2017-11-22 17:59] VITALS: BP 133/59; PULSE 102; RESP 16; TEMP 98.7; O2SAT 95
--- NOTE | 2017-11-22 19:15 | ECHRPT ---
Indication: CONCLUSIONS Technically very difficult study making assessment of left ventricular function and wall motion very suboptimal. Grossly left ventricular function appears normal. Ejection fraction is very roughly es timated at 60%. Regional wall motion abnormalities cannot be excluded on the basis of this study. Mild mitral leaflet thickening.Trace mitral valve regurgitation. Trileaflet aortic valve. No aortic valve stenosis or regurgitation. Mild aortic valve sclerosis. There is trace tricuspid valve regurgitation. The estimated pulmonary arterial pressure is 26 mmHg. BP: / HR: Rhythm: Atrial fibrillation Technical Quality:Very technically difficult study FINDINGS LEFT VENTRICLE Technically very difficult study making assessment of left ventricular function and wall motion very suboptimal. Grossly left ventricular function appears normal. Ejection fraction is very roughly es timated at 60%. Regional wall motion abnormalities cannot be excluded on the basis of this study. RIGHT VENTRICLE The right ventricle was not well visualized. LEFT ATRIUM The left atrial size is mildly dilated. RIGHT ATRIUM The right atrial size is upper limits of normal. ATRIAL SEPTUM Normal atrial septal thickness without atrial level shunting by limited color doppler interrogation. AORTA The aortic root and proximal ascending aorta are normal in size on limited imaging. MITRAL VALVE Mild mitral leaflet thickening.Trace mitral valve regurgitation. AORTIC VALVE Trileaflet aortic valve. No aortic valve stenosis or regurgitation. Mild aortic valve sclerosis. TRICUSPID VALVE Structurally normal tricuspid valve. There is trace tricuspid valve regurgitation. The estimated pulmonary arterial pressure is 26 mmHg. PULMONARY VALVE The pulmonary valve is not well visualized. VESSELS The inferior vena cava is normal in size. PERICARDIUM No pericardial effusion. Harrison Alvarez MD (Electronically Signed) Final Date:22 November 2017 18:31
== END 2017-11-22 16:14 ==
LOC: NEPC 12:17 → NEDA 15:26 → N03 17:08 → N05 11-21 21:21
PROVIDERS: ADMIT Surgery; ATTEND Surgery

== ENCOUNTER 2017-12-10 13:49 | Inpatient (IN) ==
[2017-12-10 15:31] LABS: Baso # (Auto) 0.1 th/mm3 (0.0-0.2); Baso % (Auto) 0.4 % (0.0-2.0); Eos % (Auto) 0.3 % (0.0-4.0); Hematocrit 24.7 % (39.0-51.0); Hemoglobin 8.1 gm/dL (13.0-17.0); Lymph # (Auto) 1.7 th/mm3 (1.0-4.8); Lymph % (Auto) 12.8 % (9.0-44.0); Mean Corpuscular HGB Conc 32.7 % (32.0-36.0); Mean Corpuscular Hemoglobin 32.7 pg (27.0-34.0); Mean Corpuscular Volume 100.2 fL (80.0-100.0); Mean Platelet Volume 8.5 fL (7.0-11.0); Mono # (Auto) 0.7 th/mm3 (0.0-0.9); Mono % (Auto) 5.4 % (0.0-8.0); Neut % (Auto) 81.1 % (16.0-70.0); Platelet Count 131 th/mm3 (150-450); Red Blood Count 2.47 mil/mm3 (4.50-5.90); Red Cell Distribution Width 20.5 % (11.6-17.2); White Blood Count 13.6 th/mm3 (4.0-11.0)
[2017-12-10 15:42] LABS: Activated Partial Thrombo Time 27.3 sec (24.3-30.1); INR 1.2 Ratio; Prothrombin Time 12.6 sec (9.8-11.6)
[2017-12-10 16:12] LABS: Alanine Aminotransferase 16 U/L (12-78); Albumin 1.9 g/dL (3.4-5.0); Anion Gap 6 meq/L (5-15); Aspartate Aminotransferase 21 U/L (15-37); Blood Urea Nitrogen 32 mg/dL (7-18); Calcium 8.6 mg/dL (8.5-10.1); Chloride 101 meq/L (98-107); Glomerular Filtration Rate 57 mL/min (>89); Glucose,Random 116 mg/dL (74-106); Potassium 3.5 meq/L (3.5-5.1); Sodium 144 meq/L (136-145)
[2017-12-10 16:14] LABS: Alkaline Phosphatase 73 U/L (45-117); Total Protein 6.5 g/dL (6.4-8.2)
[2017-12-10 16:22] LABS: Lymphocytes 4 % (9-44); Metamyelocytes 1 % (0-1)
[2017-12-10 16:23] LABS: Stomatocytes 1+
[2017-12-10 16:24] LABS: Platelet Morphology Normal (Normal); Toxic Granulation 2+
[2017-12-10 16:29] LABS: Dohle Bodies Present
[2017-12-10] MEDS ORDERED: Vancomycin Inj 1,500 MG in Sodium Chlor 0.9% Inj 500 ML IV.SIG ONE (17:48)
--- NOTE | 2017-12-10 18:27 | ED ---
HPI General Chief complaint: Recheck/Abnormal Lab/Rx Stated complaint: High BP Time Seen by Provider: 12/10/17 17:23 Source: family and RN notes reviewed Mode of arrival: EMS Limitations: other (Patient somewhat hard of hearing) History of Present Illness HPI narrative: 81-year-old male arrives due to weakness. The patient was admitted here following a fall with intracranial hemorrhage. Patient was discharged indigo manner and over the past 3 days he has lost his appetite and become increasingly weak. History is provided mainly by the patient's who reports his hemoglobin is decreased. Normally he runs at about a 9. Endoscopy and colonoscopy were not performed due to the intracranial hemorrhage history. They deny bloody stool/black stool. Etiology of anemia is unknown to the family. No history of fever reported. The patient had up until a few days ago been able to tolerate Ensure milk shakes with ice cream. He has essentially nothing over the past few days. Family is concerned about infection or possibly CHF exacerbation. No chest pain or shortness of breath. Onset (ago): day(s) Severity: moderate Related Data Home Medications Medication Instructions Recorded Confirmed atorvastatin 80 mg PO DAILY 11/19/17 12/10/17 furosemide [Lasix] 40 mg PO DAILY 11/19/17 12/10/17 lisinopril 10 mg PO DAILY 11/19/17 12/10/17 metoprolol tartrate 50 mg PO BID 11/19/17 12/10/17 pilocarpine HCl 5 mg PO BID 11/19/17 12/10/17 Previous Rx's Medication Instructions Recorded diltiazem HCl [Cardizem CD] 180 mg PO DAILY 30 Days #30 cap 11/22/17 levetiracetam [Keppra] 500 mg PO BID 30 Days #60 tab 11/22/17 Allergies Allergy/AdvReac Type Severity Reaction Status Date / Time penicillin G Allergy Mild UNKNOWN Verified 12/10/17 17:44 Penicillins Allergy Nausea Verified 12/10/17 17:45 Review of Systems ROS: all other systems reviewed are negative Constitutional Denies fever(s) PMFSH Social History Social History Substance History: No History of Abuse Second Hand Smoke Exposure: No Smoking Status: Former smoker Tobacco Type: Cigarettes How Often Do You Have a Drink Containing Alcohol: Monthly or less Recent Travel in [facility] within the Last 8 Weeks: No Recent Out of Country Travel within the Last 8 Weeks: No Immunization History Tetanus Immunization: <5 Years Hx Influenza Vaccine This Season: No Exam Narrative Exam Narrative: GENERAL: 81-year-old male, hard of hearing, reasonably cooperative, weak SKIN: Focused skin assessment warm/dry. Sacrum ulcer present. HEAD: Atraumatic. Normocephalic. EYES: Pupils equal and round. No scleral icterus. No injection or drainage. ENT: No nasal bleeding or discharge. Mucous membranes pink and moist. NECK: Trachea midline. No JVD. CARDIOVASCULAR: Rate 120-130s. Irregular RESPIRATORY: Lungs clear. Pt speaking full sentneces. GASTROINTESTINAL: Abdomen soft, non-tender, nondistended. Hepatic and splenic margins not palpable. MUSCULOSKELETAL: No obvious deformities. No clubbing. No cyanosis. No edema. NEUROLOGICAL: Awake and alert. No obvious cranial nerve deficits. Motor grossly within normal limits. Normal speech. PSYCHIATRIC: Cooperative. Pleasant. Course Initial Documented Vital Signs Temperature 97.4 F L 12/10/17 14:23 Pulse Rate 117 H 12/10/17 14:23 Respiratory Rate 22 12/10/17 14:23 Blood Pressure 105/57 L 12/10/17 14:23 Pulse Oximetry 91 L 12/10/17 14:23 Last Documented Vital Signs Temperature 97.4 F L 12/10/17 14:23 Pulse Rate 124 H 12/10/17 19:30 Respiratory Rate 16 12/10/17 19:30 Blood Pressure 139/95 H 12/10/17 19:30 Pulse Oximetry 99 12/10/17 19:30 Medical Decision Making MDM Narrative Medical Screen Exam Complete: Yes Emergency Medical Condition: Yes Lab Data Lab results reviewed: Yes I reviewed the patient's lab results. Lab results narrative: Patient has a bandemia at 14% of a leukocytosis of 13.6. Cefepime vancomycin started. Sepsis protocol started. Hemoglobin is 8.1 down from 9.8. 1 unit PRBCs ordered. Case d/w Dr Dukes. UA pending Tn 0.08 considered non-specific in absence of CP BNP pending EKG: atrial fibrillation, rate 110, one PVC present, multiple ST changes Result diagrams: 12/10/17 14:41 12/10/17 14:41 Lab Results 12/10/17 12/10/17 12/10/17 Range/Units 14:41 14:41 14:41 WBC 13.6 H (4.0-11.0) th/mm3 RBC 2.47 L (4.50-5.90) mil/mm3 Hgb 8.1 L (13.0-17.0) gm/dL Hct 24.7 L (39.0-51.0) % MCV 100.2 H (80.0-100.0) fL MCH 32.7 (27.0-34.0) pg MCHC 32.7 (32.0-36.0) % RDW 20.5 H (11.6-17.2) % Plt Count 131 L (150-450) th/mm3 MPV 8.5 (7.0-11.0) fL Prelim Diff (Auto) Slide review pending Neut % (Auto) 81.1 H (16.0-70.0) % Lymph % (Auto) 12.8 (9.0-44.0) % [place] % (Auto) 5.4 (0.0-8.0) % Eos % (Auto) 0.3 (0.0-4.0) % Baso % (Auto) 0.4 (0.0-2.0) % Neut # (Auto) 11.0 H (1.8-7.7) th/mm3 Lymph # (Auto) 1.7 (1.0-4.8) th/mm3 [place] # (Auto) 0.7 (0.0-0.9) th/mm3 Eos # (Auto) 0.0 (0.0-0.4) th/mm3 Baso # (Auto) 0.1 (0.0-0.2) th/mm3 WBC Differential Manual diff final Seg Neuts % (Manual) 81 H (16-70) % Band Neuts % (Manual) 14 H (0-6) % Lymphocytes % (Manual) 4 L (9-44) % Metamyelocytes % (Man) 1 (0-1) % Abs Neuts (Manual) 13.1 H (1.8-7.7) th/mm3 Differential Comment . Toxic Granulation 2+ H (None) Dohle Bodies Present H (None) Platelet Estimate Low L (Normal) Platelet Morphology Normal (Normal) Stomatocytes 1+ H (None) PT 12.6 H (9.8-11.6) sec INR 1.2 Ratio APTT 27.3 (24.3-30.1) sec Sodium 144 (136-145) meq/L Potassium 3.5 (3.5-5.1) meq/L Chloride 101 (98-107) meq/L Carbon Dioxide 37.0 H (21.0-32.0) meq/L Anion Gap 6 (5-15) meq/L BUN 32 H (7-18) mg/dL Creatinine 1.23 (0.60-1.30) mg/dL Estimated GFR 57 L (>89) mL/min Random Glucose 116 H (74-106) mg/dL Lactic Acid (0.4-2.0) mmol/L Calcium 8.6 (8.5-10.1) mg/dL Total Bilirubin 1.0 (0.2-1.0) mg/dL AST 21 (15-37) U/L ALT 16 (12-78) U/L Alkaline Phosphatase 73 (45-117) U/L Troponin I (0.02-0.05) ng/mL Total Protein 6.5 (6.4-8.2) g/dL Albumin 1.9 L (3.4-5.0) g/dL Blood Type Antibody Screen MTS Gel Crossmatch 12/10/17 12/10/17 12/10/17 Range/Units 18:30 18:30 18:30 WBC (4.0-11.0) th/mm3 RBC (4.50-5.90) mil/mm3 Hgb (13.0-17.0) gm/dL Hct (39.0-51.0) % MCV (80.0-100.0) fL MCH (27.0-34.0) pg MCHC (32.0-36.0) % RDW (11.6-17.2) % Plt Count (150-450) th/mm3 MPV (7.0-11.0) fL Prelim Diff (Auto) Neut % (Auto) (16.0-70.0) % Lymph % (Auto) (9.0-44.0) % [place] % (Auto) (0.0-8.0) % Eos % (Auto) (0.0-4.0) % Baso % (Auto) (0.0-2.0) % Neut # (Auto) (1.8-7.7) th/mm3 Lymph # (Auto) (1.0-4.8) th/mm3 [place] # (Auto) (0.0-0.9) th/mm3 Eos # (Auto) (0.0-0.4) th/mm3 Baso # (Auto) (0.0-0.2) th/mm3 WBC Differential Seg Neuts % (Manual) (16-70) % Band Neuts % (Manual) (0-6) % Lymphocytes % (Manual) (9-44) % Metamyelocytes % (Man) (0-1) % Abs Neuts (Manual) (1.8-7.7) th/mm3 Differential Comment Toxic Granulation (None) Dohle Bodies (None) Platelet Estimate (Normal) Platelet Morphology (Normal) Stomatocytes (None) PT (9.8-11.6) sec INR Ratio APTT (24.3-30.1) sec Sodium (136-145) meq/L Potassium (3.5-5.1) meq/L Chloride (98-107) meq/L Carbon Dioxide (21.0-32.0) meq/L Anion Gap (5-15) meq/L BUN (7-18) mg/dL Creatinine (0.60-1.30) mg/dL Estimated GFR (>89) mL/min Random Glucose (74-106) mg/dL Lactic Acid 1.7 (0.4-2.0) mmol/L Calcium (8.5-10.1) mg/dL Total Bilirubin (0.2-1.0) mg/dL AST (15-37) U/L ALT (12-78) U/L Alkaline Phosphatase (45-117) U/L Troponin I 0.08 H (0.02-0.05) ng/mL Total Protein (6.4-8.2) g/dL Albumin (3.4-5.0) g/dL Blood Type A Positive Antibody Screen Negative MTS Gel Crossmatch See Detail Imaging Data Radiologist's impression: Chest X-Ray 12/10/17 17:48 CONCLUSION: Left greater than the right bibasilar atelectasis and small effusions. Mild compensated cardiomegaly, stable. Head CT 12/10/17 17:48 CONCLUSION: 1. No acute intracranial hemorrhage. No mass effect or midline shift. 2. 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 3. Previously seen right frontal lobe hemorrhage has resolved. A small area of encephalomalacia has developed. 4. The previously seen small subarachnoid hemorrhage on the left has resolved. . ECG Data EKG Prior to Arrival: No Attestation: I personally reviewed and interpreted this ECG as follows: Discharge Plan Physicians Team ED Provider: Diego Mckinney Primary Care Provider: Madhav Mcleod Attending Provider: Cristian Hunt Rxs /Orders / Referrals /Forms Prescriptions: No Action furosemide [Lasix] 40 mg Tablet 40 mg PO DAILY RF: 0 pilocarpine HCl 5 mg Tablet 5 mg PO BID RF: 0 atorvastatin 80 mg Tablet 80 mg PO DAILY RF: 0 lisinopril 10 mg Tablet 10 mg PO DAILY RF: 0 metoprolol tartrate 50 mg Tablet 50 mg PO BID RF: 0 diltiazem HCl [Cardizem CD] 180 mg Capsule,Extended Release 24hr 180 mg PO DAILY 30 Days Qty: 30 RF: 0 levetiracetam [Keppra] 500 mg Tablet 500 mg PO BID 30 Days Qty: 60 RF: 0 Discharge Interventions Interventions: ED Discharge Assessment Last Done: 12/10/17 20:10 Vital Signs Last Done: 12/10/17 17:47 Status ED Status: Admitted Patient
--- NOTE | 2017-12-10 18:34 | XR ---
EXAM DATE: 12/10/2017 6:31 PM EDT AGE/SEX: 81 years / Male INDICATIONS: Fever. CLINICAL DATA: This is the patient's initial encounter. Patient reports that signs and symptoms have been present for 1 day and indicates a pain score of 2/10. MEDICAL/SURGICAL HISTORY: . Congestive heart failure. Anemia. Cardiovascular disease. A-fib . [place] [facility] [place]. . FINDINGS: Basilar atelectasis and small effusions are seen bilaterally, left more so than right. Nothing convin cing for pneumonia. No pneumothorax. Heart size stable, mildly enlarged. Median sternotomy changes are again noted. CONCLUSION: Left greater than the right bibasilar atelectasis and small effusions. Mild compensated cardiomegaly, stable. Electronically signed by: Pato Allen MD 12/10/2017 6:33 PM EDT
--- NOTE | 2017-12-10 18:43 | CT ---
EXAM DATE: 12/10/2017 6:32 PM EDT AGE/SEX: 81 years / Male INDICATIONS: Increased WBC at facility. CLINICAL DATA: This is the patient's initial encounter. Patient reports that signs and symptoms have been present for 1 day and indicates a pain score of 0/10. MEDICAL/SURGICAL HISTORY: Anemia. Stroke. Congestive heart failure. None. RADIATION DOSE: 66.42 CTDI (mGy) COMPARISON: [facility] [place], CT HEAD W/O CONTRAST, 11/19/2017. . No external comparison. TECHNIQUE: CT of the head without contrast. Using automated exposure control and adjustment of the mA and/or kV according to patient size, radiation dose was kept as low as reasonably achievable to ob tain optimal diagnostic quality images. DICOM format image data is available electronically for revi ew and comparison. FINDINGS: Previously seen acute hemorrhage has resolved. A small area of encephalomalacia as developed of the r ight frontal lobe. There is small amount of intermediate attenuation fluid in the right subdural spac e and low-attenuation fluid in the left subdural space. No new or acute bleed. No mass, mass effect o r midline shift demonstrated. Chronic low-attenuation in the periventricular white matter again seen. CONCLUSION: 1. No acute intracranial hemorrhage. No mass effect or midline shift. 2. 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 3. Previously seen right frontal lobe hemorrhage has resolved. A small area of encephalomalacia has developed. 4. The previously seen small subarachnoid hemorrhage on the left has resolved. . Electronically signed by: Pato Allen MD 12/10/2017 6:41 PM EDT
[2017-12-10 21:35] LABS: Bacteria,Urine Moderate /hpf; Bilirubin,Urine Negative (Negative); Calcium Oxalate Crystals,Urine Rare /hpf; Clarity,Urine Cloudy (Clear); Color,Urine Amber (Yellw/Straw); Glucose,Urine (UA) Negative (Negative); Hyaline Casts,Urine 3 /lpf (0-3); Leukocyte Esterase,Urine Negative (Negative); Mucus,Urine Few /lpf (Occasional); Nitrite,Urine Negative (Negative); Specific Gravity,Urine 1.015 (1.002-1.035); Squamous Epithelial Cell,Urine <1 /hpf (0-5)
[2017-12-10] MEDS ORDERED: Acetaminophen 325 MG Tablet PO PRN (21:38)
[2017-12-10] MEDS ORDERED: Bisacodyl 10 MG Supp RECTAL PRN (21:38)
[2017-12-10] MEDS ORDERED: Vancomycin Consult Pharmacy 1 EACH OTHER SCH (21:45)
[2017-12-10] MEDS ORDERED: Vancomycin Inj 1,000 MG in Sodium Chlor 0.9% Inj 250 ML IV.SIG ONE (22:00)
--- NOTE | 2017-12-10 22:27 | P.HP ---
History of Present Illness Service: [facility] Primary Care Physician: Madhav Mcleod MD Chief Complaint: Increasing weakness over the last 3 days with elevated WBC count History of Present Illness: 81-year-old white male who was in [place] [place] and over the last several days had decreased appetite with increasing weakness lab work showed an elevated WBC count in the low hemoglobin he was transferred to [facility] and family' s request. Hemoglobin in the emergency room was approximately 8 WBC count was approximately [id number] and with a slight elevation in heart rate does meet criteria for sepsis protocol and will be admitted for further evaluation may need blood transfusion as well. Patient in October last his footing at home and was found to have bilateral frontal subarachnoid hemorrhage admitted to the hospital neuro surgery was consult, and patient had repeated MRIs and CTs some improvement in the subarachnoid hemorrhages and the decision was made to transfer him to rehab facility. Of note his hemoglobin was low at approximately 7 and he did receive 2 units of blood was to undergo a GI workup but due to the subarachnoid hemorrhage that was put on hold. Patient carries an extensive past medical history includes CVA atrial fib congestive heart failure hypertension hyperlipidemia was on Coumadin this is now DC'd due to his subarachnoid hemorrhage. At this time patient is more or less cooperative he is hungry and wants to eat and does admit to generalized weakness. He denies headache, dizziness, nausea or vomiting, chest pain, shortness of breath, dark stools, and patient on exam was guaiac negative. - Diagnosis (1) Leukocytosis (2) Anemia (3) Subarachnoid hemorrhage (4) History of CHF (congestive heart failure) (5) A-fib Inpatient Certification: I certify that the inpatient services were ordered in accordance with Medicare regulations governing the order. This includes certification that hospital inpatient services are reasonable and necessary and in the case of services not specified as inpatient-only under 42 CFR 419.22(n), that they are appropriately provided as inpatient services in accordance to with the 2-midnight benchmark under 43 CFR 412.3(e) Estimated Total Length of Stay (Days): 3 Plans for Post Hospital Care: SNF Review of Systems All other systems reviewed negative except as stated in HPI PMFSH - History History Provided By: Significant Other, Medical Record - Medical History Medical History: Medical History (Last Reviewed 12/10/17 @ 22:21 by Vishal Rosario MD) Anemia Arthritis Atrial fibrillation CHF (congestive heart failure) Neck pain Stroke - Tobacco History Second Hand Smoke Exposure: No Tobacco Use In Past 30 Days: No Smoking Status: Former smoker Tobacco Type: Cigarettes - Alcohol History How Often Do You Have a Drink Containing Alcohol: Monthly or less - Substance Use History Substance History: No History of Abuse - Travel History Recent Travel in the [place] Within the Last 8 Weeks: No Recent Travel Out of the Country Within the Last 8 Weeks: No - Immunization History Tetanus Immunization: <5 Years Hx Influenza Vaccine This Season: No Medications and Allergies Active Medications: Active Medications Acetaminophen (Tylenol) 650 mg PO Q4H PRN PRN Reason: Temp > 100.4 Al Hydroxide/Mg Hydroxide (Milk Of Magnesia Liq) 30 ml PO Q12H PRN PRN Reason: Mild Constipation Atorvastatin Calcium (Lipitor) 80 mg PO DAILY HEBER Bisacodyl (Dulcolax Supp) 10 mg RECTAL DAILY PRN PRN Reason: SEVERE CONSITIPATION Diltiazem HCl (Cardizem Cd 24hr) 180 mg PO DAILY HEBER Furosemide (Lasix) 40 mg PO DAILY HEBER Sodium Chloride (1/2 Normal Saline Inj) 1,000 mls @ 75 mls/hr IV.CONT .[id number] HEBER Cefepime HCl 1,000 mg/ Sodium (Chloride) 100 mls @ 200 mls/hr IV.SIG Q8H [facility] Pharmacy Profile Note (Vancomycin Consult Pharmacy) 0 mls @ 0 mls/hr OTHER UNSCH HEBER Vancomycin HCl 1,000 mg/ (Sodium Chloride) 250 mls @ 250 mls/hr IV.SIG ONCE ONE Stop: 12/10/17 22:59 Lactulose (Lactulose Liq) 30 ml PO DAILY PRN PRN Reason: SEVERE CONSITIPATION Levetiracetam (Keppra) 500 mg PO BID HEBER Lisinopril (Prinivil) 10 mg PO DAILY HEBER Metoprolol Tartrate (Lopressor) 50 mg PO BID HEBER Pantoprazole Sodium (Protonix Inj) 40 mg IV.PUSH Q24H HEBER Pilocarpine HCl (Salagen) 5 mg PO BID HEBER Senna/Docusate Sodium (Jackeline-Colace) 1 tab PO BID HEBER Sennosides (Senokot) 17.2 mg PO Q12H PRN PRN Reason: Moderate Constipation Allergies Allergy/AdvReac Type Severity Reaction Status Date / Time penicillin G Allergy Mild UNKNOWN Verified 12/10/17 17:44 Penicillins Allergy Nausea Verified 12/10/17 17:45 Home Medications Medication Instructions Recorded Confirmed Type atorvastatin 80 mg PO DAILY 11/19/17 12/10/17 History furosemide [Lasix] 40 mg PO DAILY 11/19/17 12/10/17 History lisinopril 10 mg PO DAILY 11/19/17 12/10/17 History metoprolol tartrate 50 mg PO BID 11/19/17 12/10/17 History pilocarpine HCl 5 mg PO BID 11/19/17 12/10/17 History Exam Vital signs: Vital Signs 12/10/17 14:23 12/10/17 17:47 12/10/17 18:31 Temperature 97.4 F L Pulse Rate 117 H 118 H Respiratory Rate 22 18 Blood Pressure 105/57 L 128/88 Pulse Oximetry 91 L 94 L 94 L 12/10/17 19:30 12/10/17 20:45 Temperature 97.4 F L Pulse Rate 124 H 129 H Respiratory Rate 16 22 Blood Pressure 139/95 H 106/78 Pulse Oximetry 99 95 Intake & Output 12/10/17 12/10/17 12/11/17 06:59 18:59 06:59 Intake Total 100 / 100 Balance 100 / 100 Weight 113.398 kg Intake: IV 100 / 100 Maxipime Inj 2,000 MG In NS Inj 100 / 100 100 ML @ 200 mls/hr IV.SIG ONCE ONE Rx#:[id number] Narrative: GENERAL: SKIN: Warm and dry. HEAD: Normocephalic. EYES: No scleral icterus. No injection or drainage. NECK: Supple, trachea midline. No JVD or lymphadenopathy. CARDIOVASCULAR: IRRRegular rate and rhythm without murmurs, gallops, or rubs. RESPIRATORY: Breath sounds equal bilaterally. No accessory muscle use. GASTROINTESTINAL: Abdomen soft, non-tender, nondistended. guiac negative MUSCULOSKELETAL: No cyanosis, or edema. BACK: Nontender without obvious deformity. No CVA tenderness. Results - Labs CBC & Chem 7: 12/10/17 14:41 12/10/17 14:41 Labs: Laboratory Results - last 24 hr 12/10/17 12/10/17 12/10/17 14:41 14:41 14:41 WBC 13.6 H RBC 2.47 L Hgb 8.1 L Hct 24.7 L MCV 100.2 H MCH 32.7 MCHC 32.7 RDW 20.5 H Plt Count 131 L MPV 8.5 Prelim Diff (Auto) Slide review pending Neut % (Auto) 81.1 H Lymph % (Auto) 12.8 Irwin % (Auto) 5.4 Eos % (Auto) 0.3 Baso % (Auto) 0.4 Neut # (Auto) 11.0 H Lymph # (Auto) 1.7 Irwin # (Auto) 0.7 Eos # (Auto) 0.0 Baso # (Auto) 0.1 WBC Differential Manual diff final Seg Neuts % (Manual) 81 H Band Neuts % (Manual) 14 H Lymphocytes % (Manual) 4 L Metamyelocytes % (Man) 1 Abs Neuts (Manual) 13.1 H Differential Comment . Toxic Granulation 2+ H Dohle Bodies Present H Platelet Estimate Low L Platelet Morphology Normal Stomatocytes 1+ H PT 12.6 H INR 1.2 APTT 27.3 Sodium 144 Potassium 3.5 Chloride 101 Carbon Dioxide 37.0 H Anion Gap 6 BUN 32 H Creatinine 1.23 Estimated GFR 57 L Random Glucose 116 H Lactic Acid Calcium 8.6 Total Bilirubin 1.0 AST 21 ALT 16 Alkaline Phosphatase 73 Troponin I Total Protein 6.5 Albumin 1.9 L Urine Color Urine Clarity Urine pH Ur Specific [place] Urine Protein Urine Glucose (UA) Urine Ketones Urine Occult Blood Urine Nitrate Urine Bilirubin Urine Urobilinogen Ur Leukocyte Esterase Urine RBC Urine WBC Ur Squamous Epith Cells Calcium Oxalate Crystal Urine Bacteria Hyaline Casts Urine Mucus Micro UA Comment Ur Microscopic Review Urine Culture Comments Blood Type Antibody Screen MTS Gel Crossmatch 12/10/17 12/10/17 12/10/17 18:30 18:30 18:30 WBC RBC Hgb Hct MCV MCH MCHC RDW Plt Count MPV Prelim Diff (Auto) Neut % (Auto) Lymph % (Auto) Irwin % (Auto) Eos % (Auto) Baso % (Auto) Neut # (Auto) Lymph # (Auto) Irwin # (Auto) Eos # (Auto) Baso # (Auto) WBC Differential Seg Neuts % (Manual) Band Neuts % (Manual) Lymphocytes % (Manual) Metamyelocytes % (Man) Abs Neuts (Manual) Differential Comment Toxic Granulation Dohle Bodies Platelet Estimate Platelet Morphology Stomatocytes PT INR APTT Sodium Potassium Chloride Carbon Dioxide Anion Gap BUN Creatinine Estimated GFR Random Glucose Lactic Acid 1.7 Calcium Total Bilirubin AST ALT Alkaline Phosphatase Troponin I 0.08 H Total Protein Albumin Urine Color Urine Clarity Urine pH Ur Specific [place] Urine Protein Urine Glucose (UA) Urine Ketones Urine Occult Blood Urine Nitrate Urine Bilirubin Urine Urobilinogen Ur Leukocyte Esterase Urine RBC Urine WBC Ur Squamous Epith Cells Calcium Oxalate Crystal Urine Bacteria Hyaline Casts Urine Mucus Micro UA Comment Ur Microscopic Review Urine Culture Comments Blood Type A Positive Antibody Screen Negative MTS Gel Crossmatch See Detail 12/10/17 20:45 WBC RBC Hgb Hct MCV MCH MCHC RDW Plt Count MPV Prelim Diff (Auto) Neut % (Auto) Lymph % (Auto) Irwin % (Auto) Eos % (Auto) Baso % (Auto) Neut # (Auto) Lymph # (Auto) Irwin # (Auto) Eos # (Auto) Baso # (Auto) WBC Differential Seg Neuts % (Manual) Band Neuts % (Manual) Lymphocytes % (Manual) Metamyelocytes % (Man) Abs Neuts (Manual) Differential Comment Toxic Granulation Dohle Bodies Platelet Estimate Platelet Morphology Stomatocytes PT INR APTT Sodium Potassium Chloride Carbon Dioxide Anion Gap BUN Creatinine Estimated GFR Random Glucose Lactic Acid Calcium Total Bilirubin AST ALT Alkaline Phosphatase Troponin I Total Protein Albumin Urine Color [place] Urine Clarity Cloudy H Urine pH 5.0 Ur Specific Vad[place] 1.015 Urine Protein 30 H Urine Glucose (UA) Negative Urine Ketones Negative Urine Occult Blood Large H Urine Nitrate Negative Urine Bilirubin Negative Urine Urobilinogen 2.0 H Ur Leukocyte Esterase Negative Urine RBC 59 H Urine WBC 8 H Ur Squamous Epith Cells <1 Calcium Oxalate Crystal Rare H Urine Bacteria Moderate H Hyaline Casts 3 Urine Mucus Few H Micro UA Comment Culture indicated Ur Microscopic Review Not Reportable Urine Culture Comments Culture indicated Blood Type Antibody Screen MTS Gel Crossmatch - Imaging Impressions Chest X-Ray 12/10/17 17:48 CONCLUSION: Left greater than the right bibasilar atelectasis and small effusions. Mild compensated cardiomegaly, stable. Head CT 12/10/17 17:48 CONCLUSION: 1. No acute intracranial hemorrhage. No mass effect or midline shift. 2. 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 3. Previously seen right frontal lobe hemorrhage has resolved. A small area of encephalomalacia has developed. 4. The previously seen small subarachnoid hemorrhage on the left has resolved. . Caprini VTE Risk Assessment Caprini VTE Risk Assessment: Moderate/High Risk (score >= 2) Caprini Risk Assessment Model: Point Value = 1 Point Value = 2 Point Value = 3 Point Value = 5 Age 41-60 Minor surgery BMI > 25 kg/m2 Swollen legs Varicose veins or History of unexplained or recurrent spontaneous Oral contraceptives or hormone replacement Sepsis (< 1 month) Serious lung disease, including pneumonia (< 1 month) Abnormal pulmonary function Acute myocardial infarction Congestive heart failure (< 1 month) History of inflammatory bowel disease Medical patient at bed rest Age 61-74 Arthroscopic surgery Major open surgery (> 45 min) Laparoscopic surgery (> 45 min) Malignancy Confined to bed (> 72 hours) Immobilizing plaster cast Central venous access Age >= 75 History of VTE Family history of VTE Factor V Leiden Prothrombin [id number] Lupus anticoagulant Anticardiolipin antibodies Elevated serum homocysteine Heparin-induced thrombocytopenia Other congenital or acquired thrombophilia Stroke (< 1 month) Elective arthroplasty Hip, pelvis, or leg fracture Acute spinal cord injury (< 1 month) Prophylaxis Regimen: Total Risk Factor Score Risk Level Prophylaxis Regimen 0-1 Low Early ambulation 2 Moderate Order ONE of the following: *Sequential Compression Device (SCD) *Heparin 5000 units SQ BID 3-4 Higher Order ONE of the following medications: *Heparin 5000 units SQ TID *Enoxaparin/Lovenox 40 mg SQ daily (WT < 150 kg, CrCl > 30 mL/min) *Enoxaparin/Lovenox 30 mg SQ daily (WT < 150 kg, CrCl > 10-29 mL/min) *Enoxaparin/Lovenox 30 mg SQ BID (WT < 150 kg, CrCl > 30 mL/min) AND/OR *Sequential Compression Device (SCD) 5 or more Highest Order ONE of the following medications: *Heparin 5000 units SQ TID (Preferred with Epidurals) *Enoxaparin/Lovenox 40 mg SQ daily (WT < 150 kg, CrCl > 30 mL/min) *Enoxaparin/Lovenox 30 mg SQ daily (WT < 150 kg, CrCl > 10-29 mL/min) *Enoxaparin/Lovenox 30 mg SQ BID (WT < 150 kg, CrCl > 30 mL/min) AND *Sequential Compression Device (SCD) Assessment and Plan - Assessment (1) Leukocytosis Code(s): D72.829 - Elevated white blood cell count, unspecified Status: Acute Plan: The patient is meeting some sepsis protocol will start on IV vancomycin cefepime note has a questionable history of allergy to penicillin on talking to the patient it seems to be more of a nausea and not a true allergy follow-up labs blood and urine culture sent during that shows RBCs and some WBCs as well (2) Anemia Code(s): D64.9 - Anemia, unspecified Status: Acute Plan: Hemoglobin is approximately 8 view of the weakness will transfuse and give Lasix in between transfusions follow CBC this may be anemia of chronic disease which case may need a hematology evaluation GI workup (3) Subarachnoid hemorrhage Code(s): I60.9 - Nontraumatic subarachnoid hemorrhage, unspecified Status: Acute Plan: Stable based on recent CT (4) History of CHF (congestive heart failure) Code(s): Z86.79 - Personal history of other diseases of the circulatory system Status: Acute Plan: Chest x-ray still shows some small effusions troponin level slightly elevated we will follow that up also added BNP and will continue Lasix for now (5) A-fib Code(s): I48.91 - Unspecified atrial fibrillation Status: Acute Plan: Atrial fib is stable at present we will continue metoprolol diltiazem - Plan Further plan as case develops Discussed Condition With: Patient
--- NOTE | 2017-12-10 22:37 | P.PNADD ---
Addendum to Inpatient Note Reason for Addendum: Additional Documentation (Patient has not been eating well at rehab although he tells me that he is hungry ,albumin was low will have dietary see patient regarding supplement to diet)
[2017-12-10] MEDS: Sodium Chloride 0.45 % Inj 1,000 ML IV.CONT SCH (22:38)
[2017-12-10] MEDS: Pantoprazole Inj 40 MG Vial IV.PUSH SCH (22:42)
[2017-12-10] MEDS ORDERED: Sodium Chlor 0.9% Inj 250 ML IV.SIG SCH (23:00)
[2017-12-11 08:19] LABS: Baso # (Auto) 0.1 th/mm3 (0.0-0.2); Baso % (Auto) 0.6 % (0.0-2.0); Eos # (Auto) 0.1 th/mm3 (0.0-0.4); Eos % (Auto) 0.6 % (0.0-4.0); Hematocrit 25.1 % (39.0-51.0); Hemoglobin 8.4 gm/dL (13.0-17.0); Lymph # (Auto) 1.2 th/mm3 (1.0-4.8); Lymph % (Auto) 12.6 % (9.0-44.0); Mean Corpuscular HGB Conc 33.5 % (32.0-36.0); Mean Corpuscular Hemoglobin 33.8 pg (27.0-34.0); Mean Platelet Volume 8.2 fL (7.0-11.0); Mono # (Auto) 0.7 th/mm3 (0.0-0.9); Mono % (Auto) 7.5 % (0.0-8.0); Neut # (Auto) 7.5 th/mm3 (1.8-7.7); Neut % (Auto) 78.7 % (16.0-70.0); Platelet Count 112 th/mm3 (150-450); Red Blood Count 2.49 mil/mm3 (4.50-5.90); Red Cell Distribution Width 20.1 % (11.6-17.2); White Blood Count 9.6 th/mm3 (4.0-11.0)
[2017-12-11] MEDS: Lisinopril 10 MG Tablet PO SCH (08:22)
[2017-12-11] MEDS: Furosemide 40 MG Tablet PO SCH (08:22)
[2017-12-11] MEDS: Senna/Docusate Sodium 8.6/50 MG Tablet PO SCH ×2 (08:22→20:39)
[2017-12-11] MEDS: dilTIAZem CD 180 MG Capsule PO SCH (08:22)
[2017-12-11] MEDS: Metoprolol Tartrate 50 MG Tablet PO SCH ×2 (08:22→20:39)
[2017-12-11] MEDS: levETIRAcetam 500 MG Tablet PO SCH ×2 (08:22→20:39)
[2017-12-11 08:46] LABS: Albumin 1.8 g/dL (3.4-5.0); Anion Gap 9 meq/L (5-15); Aspartate Aminotransferase 19 U/L (15-37); Blood Urea Nitrogen 34 mg/dL (7-18); Calcium 8.3 mg/dL (8.5-10.1); Chloride 102 meq/L (98-107); Glucose,Random 110 mg/dL (74-106); Potassium 3.3 meq/L (3.5-5.1); Sodium 145 meq/L (136-145)
[2017-12-11 08:51] LABS: Alanine Aminotransferase 14 U/L (12-78); Alkaline Phosphatase 65 U/L (45-117); Glomerular Filtration Rate 57 mL/min (>89); Total Protein 6.3 g/dL (6.4-8.2)
[2017-12-11 09:37] LABS: Eosinophils 1 % (0-4); Lymphocytes 3 % (9-44); Metamyelocytes 1 % (0-1); Monocytes 6 % (0-8)
[2017-12-11 09:42] LABS: Ovalocytes 1+; Platelet Morphology Normal (Normal); Toxic Granulation 2+
[2017-12-11] MEDS: Pilocarpine HCl 5 MG Tablet PO SCH ×2 (10:00→20:39)
--- NOTE | 2017-12-11 11:45 | ECG ---
Date Performed: 12/10/2017 Time Performed: 18:01:48 PTAGE: 81 years EKG: ATRIAL FIBRILLATION WITH RAPID VENTRICULAR RESPONSE WITH ABERRANT CONDUCTION OR VENTRICULAR PREMATURE COMPLEXES RIGHT BUNDLE BRANCH BLOCK LATERAL MYOCARDIAL INFARCTION INFERIOR MYOCARDIAL INFA RCTION ABNORMAL ECG PREVIOUS TRACING : 11/19/2017 17.26 DOCTOR: Ja Willis Interpretating Date/Time 12/11/2017 11:43:53
--- NOTE | 2017-12-11 11:47 | P.DIET ---
Nutritional Evaluation Type of nutrition evaluation: initial Nutrition screening: MDC (Poor PO Intake, low albumin) Screening comments: Please note: Albumin/Prealbumin are acute-phase proteins and reflect severity of the inflammation response rather than poor nutritional status. It is no longer used to diagnose malnutrition nor will it respond to feeding interventions. Subjective Subjective Comments: Poor appetite from [place] [place]. Objective - Diagnosis Anemia, Sepsis unkown etiolgy, failure to thrive - Objective % IBW: 123 (IBW = 202#) Body Weight Used for Calculations: Actual (113.4 kg) Energy Needs - Lower Range (kCal/kg): 25 Energy Needs - Upper Range (kCal/kg): 30 Lower Limit kCal/kg (kCals): 2,835 Upper Limit kCal/kg (kCals): 3,402 Lower Limit Protein Factor (Grams per Kg): 1.0 Upper Limit Protein Factor (Grams per Kg): 1.5 Lower Protein Needs (Protein): 113 Upper Protein Needs (Protein): 170 Dietitian Reviewed in Medical Record: Current diet, Curent medications, Intake & Output, Labs, Medical history Diet Order: Heart Healthy Assessment Assessment: Pt admitted with dx of Failure To Thrive. He presents with a BMI of 30.4. Adequate po intake has not yet been established. Will send Ensure Enlive on trays and monitor acceptance. Each 8 oz serving provides 350 kcals and 20 gms protein. Pt will be able to make food preferences known with menu selection Recommendations: 1. Continue current diet 2. Ensure Enlive tid 3. RD following Dietitian to Monitor: Lab values, Supplement acceptance, Intake & Output, Diet tolerance, Weight change, PO Intake, Medical course
[2017-12-11] MEDS: Vancomycin Inj 1,250 MG in Sodium Chlor 0.9% Inj 250 ML IV.SIG SCH ×2 (11:49→23:19)
--- NOTE | 2017-12-11 12:28 | P.PNIM ---
Subjective Interval history: Follow up bacteriemia gram positive cocci Patient reports feeling much better today than yesterday Physical Exam Vital signs: Vital Signs 12/10/17 14:23 12/10/17 17:47 12/10/17 18:31 Temperature 97.4 F L Pulse Rate 117 H 118 H Respiratory Rate 22 18 Blood Pressure 105/57 L 128/88 Pulse Oximetry 91 L 94 L 94 L 12/10/17 19:30 12/10/17 20:45 12/11/17 00:00 Temperature 97.4 F L 97.4 F L Pulse Rate 124 H 129 H 111 H Respiratory Rate 16 22 20 Blood Pressure 139/95 H 106/78 95/56 L Pulse Oximetry 99 95 95 12/11/17 01:12 12/11/17 01:30 12/11/17 04:55 Temperature 98.4 F 98.2 F 97 F L Pulse Rate 120 H 116 H 120 H Respiratory Rate 20 20 20 Blood Pressure 102/71 105/80 102/83 Pulse Oximetry 96 95 94 L 12/11/17 08:00 Temperature 97.6 F Pulse Rate 114 H Respiratory Rate 18 Blood Pressure 133/70 Pulse Oximetry 97 Intake & Output 12/10/17 12/11/17 12/11/17 18:59 06:59 18:59 Intake Total 965 / 965 100 / 100 Output Total 200 / 200 Balance 765 / 765 100 / 100 Weight 113.398 kg 113.4 kg Intake: IV 965 / 965 100 / 100 Maxipime Inj 1,000 MG In NS Inj 100 / 100 100 / 100 100 ML @ 200 mls/hr IV.SIG Q8H [facility] Rx#:[id number] Maxipime Inj 2,000 MG In NS Inj 100 / 100 100 ML @ 200 mls/hr IV.SIG ONCE ONE Rx#:[id number] Vancomycin Inj 1,000 MG In NS 250 / 250 Inj 250 ML @ 250 mls/hr IV.SIG ONCE ONE Rx#:[id number] Vancomycin Inj 1,500 MG In NS 515 / 515 Inj 500 ML @ 250 mls/hr IV.SIG ONCE ONE Rx#:[id number] Intake (Blood Product) Amt 0 / 0 Rbc As-3 Leukoreduced Unit 0 / 0 [id number] Output: Urine 200 / 200 Other: # Voids 1 Narrative: GENERAL: 81 year old male patient A&O SKIN: Warm and dry. small stage two ulceration left buttock 2-3cm HEAD: Normocephalic. EYES: No scleral icterus. No injection or drainage. NECK: ?stiff neck suspicious for nuchal rigidity CARDIOVASCULAR: Irregularly irregular RESPIRATORY: clear bilaterally GASTROINTESTINAL: Abdomen soft, non-tender, nondistended. MUSCULOSKELETAL: No cyanosis, or edema. BACK: Nontender without obvious deformity. No CVA tenderness. Results - Labs CBC & Chem 7: 12/14/17 03:46 12/14/17 03:46 Laboratory Results - last 24 hr 12/10/17 12/10/17 12/10/17 14:41 14:41 14:41 WBC 13.6 H RBC 2.47 L Hgb 8.1 L Hct 24.7 L MCV 100.2 H MCH 32.7 MCHC 32.7 RDW 20.5 H Plt Count 131 L MPV 8.5 Prelim Diff (Auto) Slide review pending Neut % (Auto) 81.1 H Lymph % (Auto) 12.8 [place] % (Auto) 5.4 Eos % (Auto) 0.3 Baso % (Auto) 0.4 Neut # (Auto) 11.0 H Lymph # (Auto) 1.7 [place] # (Auto) 0.7 Eos # (Auto) 0.0 Baso # (Auto) 0.1 WBC Differential Manual diff final Seg Neuts % (Manual) 81 H Band Neuts % (Manual) 14 H Lymphocytes % (Manual) 4 L Monocytes % (Manual) Eosinophils % (Manual) Metamyelocytes % (Man) 1 Abs Neuts (Manual) 13.1 H Differential Comment . Toxic Granulation 2+ H Dohle Bodies Present H Platelet Estimate Low L Platelet Morphology Normal Ovalocytes Stomatocytes 1+ H PT 12.6 H INR 1.2 APTT 27.3 Sodium 144 Potassium 3.5 Chloride 101 Carbon Dioxide 37.0 H Anion Gap 6 BUN 32 H Creatinine 1.23 Estimated GFR 57 L Random Glucose 116 H Lactic Acid Calcium 8.6 Total Bilirubin 1.0 AST 21 ALT 16 Alkaline Phosphatase 73 Troponin I B-Natriuretic Peptide Total Protein 6.5 Albumin 1.9 L Urine Color Urine Clarity Urine pH Ur Specific [place] Urine Protein Urine Glucose (UA) Urine Ketones Urine Occult Blood Urine Nitrate Urine Bilirubin Urine Urobilinogen Ur Leukocyte Esterase Urine RBC Urine WBC Ur Squamous Epith Cells Calcium Oxalate Crystal Urine Bacteria Hyaline Casts Urine Mucus Micro UA Comment Ur Microscopic Review Urine Culture Comments Blood Type Antibody Screen MTS Gel Crossmatch 12/10/17 12/10/17 12/10/17 18:30 18:30 18:30 WBC RBC Hgb Hct MCV MCH MCHC RDW Plt Count MPV Prelim Diff (Auto) Neut % (Auto) Lymph % (Auto) [place] % (Auto) Eos % (Auto) Baso % (Auto) Neut # (Auto) Lymph # (Auto) [place] # (Auto) Eos # (Auto) Baso # (Auto) WBC Differential Seg Neuts % (Manual) Band Neuts % (Manual) Lymphocytes % (Manual) Monocytes % (Manual) Eosinophils % (Manual) Metamyelocytes % (Man) Abs Neuts (Manual) Differential Comment Toxic Granulation Dohle Bodies Platelet Estimate Platelet Morphology Ovalocytes Stomatocytes PT INR APTT Sodium Potassium Chloride Carbon Dioxide Anion Gap BUN Creatinine Estimated GFR Random Glucose Lactic Acid 1.7 Calcium Total Bilirubin AST ALT Alkaline Phosphatase Troponin I 0.08 H B-Natriuretic Peptide 395 H Total Protein Albumin Urine Color Urine Clarity Urine pH Ur Specific [place] Urine Protein Urine Glucose (UA) Urine Ketones Urine Occult Blood Urine Nitrate Urine Bilirubin Urine Urobilinogen Ur Leukocyte Esterase Urine RBC Urine WBC Ur Squamous Epith Cells Calcium Oxalate Crystal Urine Bacteria Hyaline Casts Urine Mucus Micro UA Comment Ur Microscopic Review Urine Culture Comments Blood Type Antibody Screen [facility] Gel Crossmatch 12/10/17 12/10/17 12/10/17 18:30 18:30 20:45 WBC RBC Hgb Hct MCV MCH MCHC RDW Plt Count MPV Prelim Diff (Auto) Neut % (Auto) Lymph % (Auto) [place] % (Auto) Eos % (Auto) Baso % (Auto) Neut # (Auto) Lymph # (Auto) [place] # (Auto) Eos # (Auto) Baso # (Auto) WBC Differential Seg Neuts % (Manual) Band Neuts % (Manual) Lymphocytes % (Manual) Monocytes % (Manual) Eosinophils % (Manual) Metamyelocytes % (Man) Abs Neuts (Manual) Differential Comment Toxic Granulation Dohle Bodies Platelet Estimate Platelet Morphology Ovalocytes Stomatocytes PT INR APTT Sodium Potassium Chloride Carbon Dioxide Anion Gap BUN Creatinine Estimated GFR Random Glucose Lactic Acid Calcium Total Bilirubin AST ALT Alkaline Phosphatase Troponin I B-Natriuretic Peptide Total Protein Albumin Urine Color [place] Urine Clarity Cloudy H Urine pH 5.0 Ur Specific [place] 1.015 Urine Protein 30 H Urine Glucose (UA) Negative Urine Ketones Negative Urine Occult Blood Large H Urine Nitrate Negative Urine Bilirubin Negative Urine Urobilinogen 2.0 H Ur Leukocyte Esterase Negative Urine RBC 59 H Urine WBC 8 H Ur Squamous Epith Cells <1 Calcium Oxalate Crystal Rare H Urine Bacteria Moderate H Hyaline Casts 3 Urine Mucus Few H Micro UA Comment Culture indicated Ur Microscopic Review Not Reportable Urine Culture Comments Culture indicated Blood Type A Positive Antibody Screen Negative MTS Gel Crossmatch See Detail See Detail 12/11/17 12/11/17 06:42 06:42 WBC 9.6 RBC 2.49 L Hgb 8.4 L Hct 25.1 L MCV 101.0 H MCH 33.8 MCHC 33.5 RDW 20.1 H Plt Count 112 L MPV 8.2 Prelim Diff (Auto) Slide review pending Neut % (Auto) 78.7 H Lymph % (Auto) 12.6 [place] % (Auto) 7.5 Eos % (Auto) 0.6 Baso % (Auto) 0.6 Neut # (Auto) 7.5 Lymph # (Auto) 1.2 [place] # (Auto) 0.7 Eos # (Auto) 0.1 Baso # (Auto) 0.1 WBC Differential Manual diff final Seg Neuts % (Manual) 68 Band Neuts % (Manual) 21 H Lymphocytes % (Manual) 3 L Monocytes % (Manual) 6 Eosinophils % (Manual) 1 Metamyelocytes % (Man) 1 Abs Neuts (Manual) 8.6 H Differential Comment . Toxic Granulation 2+ H Dohle Bodies Platelet Estimate Low L Platelet Morphology Normal Ovalocytes 1+ H Stomatocytes PT INR APTT Sodium 145 Potassium 3.3 L Chloride 102 Carbon Dioxide 34.0 H Anion Gap 9 BUN 34 H Creatinine 1.22 Estimated GFR 57 L Random Glucose 110 H Lactic Acid Calcium 8.3 L Total Bilirubin 1.5 H AST 19 ALT 14 Alkaline Phosphatase 65 Troponin I B-Natriuretic Peptide Total Protein 6.3 L Albumin 1.8 L Urine Color Urine Clarity Urine pH Ur Specific [place] Urine Protein Urine Glucose (UA) Urine Ketones Urine Occult Blood Urine Nitrate Urine Bilirubin Urine Urobilinogen Ur Leukocyte Esterase Urine RBC Urine WBC Ur Squamous Epith Cells Calcium Oxalate Crystal Urine Bacteria Hyaline Casts Urine Mucus Micro UA Comment Ur Microscopic Review Urine Culture Comments Blood Type Antibody Screen MTS Gel Crossmatch Microbiology 12/10/17 20:45 Clean Catch Urine Urine Culture - Preliminary No growth in 24 hours 12/10/17 18:30 Blood - Peripheral Aerobic Blood Culture - Preliminary gram positive cocci 12/10/17 18:30 Blood - Peripheral Anaerobic Blood Culture - Preliminary gram positive cocci 12/10/17 18:30 Blood - Peripheral Aerobic Blood Culture - Preliminary gram positive cocci 12/10/17 18:30 Blood - Peripheral Anaerobic Blood Culture - Preliminary gram positive cocci - Imaging Impressions Chest X-Ray 12/10/17 17:48 CONCLUSION: Left greater than the right bibasilar atelectasis and small effusions. Mild compensated cardiomegaly, stable. Head CT 12/10/17 17:48 CONCLUSION: 1. No acute intracranial hemorrhage. No mass effect or midline shift. 2. 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 3. Previously seen right frontal lobe hemorrhage has resolved. A small area of encephalomalacia has developed. 4. The previously seen small subarachnoid hemorrhage on the left has resolved. . Assessment and Plan - Assessment (1) Bacteremia Code(s): R78.81 - Bacteremia Status: Acute Plan: 81-year-old white male who was in [facility] and over the last several days had decreased appetite with increasing weakness lab work showed an elevated WBC count in the low hemoglobin he was transferred to [place] emergency and family' s request. Hemoglobin in the emergency room was approximately 8 WBC count was approximately 77774 and with a slight elevation in heart rate does meet criteria for sepsis protocol and will be admitted for further evaluation may need blood transfusion as well. Bacteremia Leukocytosis WBC on admission 13.6 -> 9.6 (12/11) The patient is meeting some sepsis protocol will start on IV vancomycin cefepime note has a questionable history of allergy to penicillin Gram positive cocci / bottles Consult placed to LESLIE Pang ?stiff neck suspicious for nuchal rigidity, consult IR for possible LP Anemia guaiac negative in ER Hemoglobin 8.1 in admission s/p 1 unit PRBCs 12/11 repeat hgb 12/11 8.4 recheck CBC in AM Subarachnoid hemorrhage In October patient last his footing at home and was found to have bilateral frontal subarachnoid hemorrhage admitted to the hospital neuro surgery was consult, and patient had repeated MRIs and CTs some improvement in the subarachnoid hemorrhages and the decision was made to transfer him to rehab facility. Of note his hemoglobin was low at approximately 7 and he did receive 2 units of blood was to undergo a GI workup but due to the subarachnoid hemorrhage that was put on hold. Patient was on Coumadin which has been DC'd due to his subarachnoid hemorrhage. Stable based on recent CT History of CHF (congestive heart failure) Chest x-ray still shows some small effusions - continue home Lasix 40 mg PO daily troponin level slightly elevated on admission 0.08, patient denies chest pain will repeat now to establish trend BNP 395 will continue home Lasix for now, recheck BNP in AM also A-fib Atrial fib is stable at present we will continue metoprolol diltiazem Hypokalemia potassium 3.3 replaced recheck in AM DVT prophylaxis with SCDs avoid chemical DVT prophylaxis due to recent Subarachnoid hemorrhage - Attending Attestation Patient examined. Assessment and plan formulated with Tahira Morin PA-C. Celestina agree with the above.
[2017-12-11 12:45] LABS: Free T4 (Free Thyroxine) 1.33 ng/dL (0.76-1.46); Thyroid Stimulating Hormone 1.6 uIU/mL (0.358-3.740)
[2017-12-11] MEDS: Sodium Chloride 0.45 % Inj 1,000 ML IV.CONT SCH (17:03)
[2017-12-11] MEDS: Sod Chloride 0.9% Inj 1,000 ML IV.CONT SCH (18:24)
[2017-12-11] MEDS: Pantoprazole Inj 40 MG Vial IV.PUSH SCH (21:18)
[2017-12-12 04:47] LABS: Hemoglobin 8.4 gm/dL (13.0-17.0); Mean Corpuscular HGB Conc 33.7 % (32.0-36.0); Mean Corpuscular Volume 100.7 fL (80.0-100.0); Mean Platelet Volume 8.4 fL (7.0-11.0); Platelet Count 116 th/mm3 (150-450); Red Blood Count 2.48 mil/mm3 (4.50-5.90); Red Cell Distribution Width 19.8 % (11.6-17.2); White Blood Count 6.2 th/mm3 (4.0-11.0)
[2017-12-12 05:20] LABS: Calcium 8.4 mg/dL (8.5-10.1); Carbon Dioxide 33.3 meq/L (21.0-32.0); Potassium 3.3 meq/L (3.5-5.1)
--- NOTE | 2017-12-12 06:05 | P.CONID ---
History of Present Illness Service: ID Consult date: 12/11/17 Requesting Physician: Cristian Hunt Reason for Consult: bacteremia Primary Care Provider: Madhav Mcleod MD Chief Complaint: Increasing weakness over the last 3 days with elevated WBC count History of Present Illness: Pt was seen yday around 6:30 pm in his room 1701 This is delayed entry Pt is unable to provide menaingful history and history was obtained from the chart review and from his RN In October pt was admitted with subarachnoid hemorrhages and discharged to rehab He presented to the ER with c/o weakness and also abnormal labs, including anemia and leukocytosis of 14 K H e has poor appetite His w/u showed 4/4 positive blood cultures No h/o pacemakers, AICDs or other intravascular devices His chest Xray showed b/b consolidations and effusions Review of Systems All other systems reviewed negative except as stated in HPI (pt is a quite poor historian) PMF - History History Provided By: Significant Other, Medical Record - Medical History Medical History: Medical History (Last Reviewed 12/12/17 @ 05:57 by Frances Pang MD) Anemia Arthritis Atrial fibrillation CHF (congestive heart failure) Neck pain Stroke - Family History Family History: Family History (Last Updated 12/12/17 @ 05:58 by Frances Pang MD) Other Family history unobtainable - Social History I have reviewed the patient's Social History: Yes - Tobacco History Second Hand Smoke Exposure: No Tobacco Use In Past 30 Days: No Smoking Status: Former smoker Tobacco Type: Cigarettes - Alcohol History How Often Do You Have a Drink Containing Alcohol: Monthly or less - Substance Use History Substance History: No History of Abuse - Travel History Recent Travel in the [place] Within the Last 8 Weeks: No Recent Travel Out of the Country Within the Last 8 Weeks: No - Immunization History Tetanus Immunization: <5 Years Hx Influenza Vaccine This Season: No Medications and Allergies Active Medications: Active Medications Acetaminophen (Tylenol) 650 mg PO Q4H PRN PRN Reason: Temp > 100.4 Al Hydroxide/Mg Hydroxide (Milk Of Magnesia Liq) 30 ml PO Q12H PRN PRN Reason: Mild Constipation Atorvastatin Calcium (Lipitor) 80 mg PO DAILY [facility] Last Admin: 12/11/17 08:22 Dose: 80 mg Bisacodyl (Dulcolax Supp) 10 mg RECTAL DAILY PRN PRN Reason: SEVERE CONSITIPATION Diltiazem HCl (Cardizem Cd 24hr) 180 mg PO DAILY COUNT INCLUDES THE [facility] Last Admin: 12/11/17 08:22 Dose: 180 mg Furosemide (Lasix) 40 mg PO DAILY COUNT INCLUDES THE [facility] Last Admin: 12/11/17 08:22 Dose: 40 mg Cefepime HCl 1,000 mg/ Sodium (Chloride) 100 mls @ 200 mls/hr IV.SIG Q8H COUNT INCLUDES THE [facility] Last Infusion: 12/11/17 21:59 Dose: Infused Pharmacy Profile Note (Vancomycin Consult Pharmacy) 0 mls @ 0 mls/hr OTHER UNSCH COUNT INCLUDES THE [facility] Vancomycin HCl 1,250 mg/ (Sodium Chloride) 262.5 mls @ 250 mls/hr IV.SIG Q12H COUNT INCLUDES THE [facility] Last Infusion: 12/12/17 02:19 Dose: Infused Sodium Chloride (Ns Inj) 1,000 mls @ 42 mls/hr IV.CONT .[id number] COUNT INCLUDES THE [facility] Last Admin: 12/11/17 18:24 Dose: 42 mls/hr Lactulose (Lactulose Liq) 30 ml PO DAILY PRN PRN Reason: SEVERE CONSITIPATION Levetiracetam (Keppra) 500 mg PO BID COUNT INCLUDES THE [facility] Last Admin: 12/11/17 20:39 Dose: 500 mg Lisinopril (Prinivil) 10 mg PO DAILY COUNT INCLUDES THE [facility] Last Admin: 12/11/17 08:22 Dose: 10 mg Metoprolol Tartrate (Lopressor) 50 mg PO BID COUNT INCLUDES THE [facility] Last Admin: 12/11/17 20:39 Dose: 50 mg Miscellaneous Information ([facility] Ordered Lab Info) 1 each OTHER ONCE COUNT INCLUDES THE [facility] Pantoprazole Sodium (Protonix Inj) 40 mg IV.PUSH Q24H COUNT INCLUDES THE [facility] Last Admin: 12/11/17 21:18 Dose: 40 mg Pilocarpine HCl (Salagen) 5 mg PO BID COUNT INCLUDES THE [facility] Last Admin: 12/11/17 20:39 Dose: 5 mg Senna/Docusate Sodium (Jackeline-Colace) 1 tab PO BID COUNT INCLUDES THE [facility] Last Admin: 12/11/17 20:39 Dose: 1 tab Sennosides (Senokot) 17.2 mg PO Q12H PRN PRN Reason: Moderate Constipation Allergies Allergy/AdvReac Type Severity Reaction Status Date / Time penicillin G Allergy Mild UNKNOWN Verified 12/10/17 17:44 Penicillins Allergy Nausea Verified 12/10/17 17:45 Home Medications Medication Instructions Recorded Confirmed Type atorvastatin 80 mg PO DAILY 11/19/17 12/10/17 History furosemide [Lasix] 40 mg PO DAILY 11/19/17 12/10/17 History lisinopril 10 mg PO DAILY 11/19/17 12/10/17 History metoprolol tartrate 50 mg PO BID 11/19/17 12/10/17 History pilocarpine HCl 5 mg PO BID 11/19/17 12/10/17 History Exam Vital signs: Vital Signs 12/11/17 08:00 12/11/17 12:00 12/11/17 15:34 Temperature 97.6 F 97.3 F L 97.1 F L Pulse Rate 114 H 93 H 86 Respiratory Rate 18 18 17 Blood Pressure 133/70 98/55 L 96/52 L Pulse Oximetry 97 96 96 12/11/17 19:41 12/11/17 20:00 12/11/17 21:02 Temperature 97.4 F L Pulse Rate 103 H 118 H 110 H Respiratory Rate 20 Blood Pressure 124/64 Pulse Oximetry 97 12/12/17 00:00 12/12/17 04:00 Temperature 97.4 F L 97.4 F L Pulse Rate 85 103 H Respiratory Rate 20 20 Blood Pressure 109/56 L 111/55 L Pulse Oximetry 90 L 96 Intake & Output 12/11/17 12/11/17 12/12/17 06:59 18:59 06:59 Intake Total 965 / 965 1682.5 / 1682.5 612.5 / 612.5 Output Total 200 / 200 600 / 600 Balance 765 / 765 1082.5 / 1082.5 612.5 / 612.5 Weight 113.4 kg 0 g Intake: IV 965 / 965 1062.5 / 1062.5 612.5 / 612.5 1/2 Normal Saline Inj 1,000 ML 600 / 600 @ 75 mls/hr IV.CONT .[id number] [facility] Rx#:[id number] Maxipime Inj 1,000 MG In NS Inj 100 / 100 200 / 200 100 / 100 100 ML @ 200 mls/hr IV.SIG Q8H [facility] Rx#:[id number] Maxipime Inj 2,000 MG In NS Inj 100 / 100 100 ML @ 200 mls/hr IV.SIG ONCE ONE Rx#:[id number] NS Inj 250 ML @ 15 mls/hr IV. 0 / 0 SIG ONCE [facility] Rx#:[id number] Vancomycin Inj 1,000 MG In NS 250 / 250 Inj 250 ML @ 250 mls/hr IV.SIG ONCE ONE Rx#:[id number] Vancomycin Inj 1,250 MG In NS 262.5 / 262.5 262.5 / 262.5 Inj 250 ML @ 250 mls/hr IV.SIG Q12H [facility] Rx#:[id number] Vancomycin Inj 1,500 MG In NS 515 / 515 Inj 500 ML @ 250 mls/hr IV.SIG ONCE ONE Rx#:[id number] Oral 620 / 620 Intake (Blood Product) Amt 0 / 0 Rbc As-3 Leukoreduced Unit 0 / 0 [id number] Output: Urine 200 / 200 600 / 600 Other: # Voids 1 2 # Bowel Movements 2 - Constitutional no acute distress, obese - Routine HEENT Exam Head: Present: normocephalic, atraumatic Eye: Present: EOMI, PERRL ENT: Present: mucous membranes dry. Absent: dentition normal - Routine Neck Exam Present: supple, trachea midline - Routine Respiratory Exam Present: decreased breath sounds, CTA bilaterally - Routine Cardiovascular Exam Present: S1, S2, irregularly irregular. Absent: murmur - Routine Abdominal Exam Present: soft, normoactive bowel sounds. Absent: tenderness, distended, organomegaly, mass - Routine Extremities Exam Present: normal capillary refill. Absent: cyanosis, clubbing, edema - Routine Skin Exam Present: intact, dry, warm. Absent: cyanosis, rash - Routine Neurological Exam Present: alert, CN II-XII intact (except VIII: pt is CAHUILLA), moving all extremities, vision grossly intact, normal speech. Absent: oriented X3 ( oriented x 2), hearing grossly intact, facial asymmetry - Routine Psychiatric Exam Present: normal affect, cooperative Results - Labs CBC & Chem 7: 12/12/17 03:45 12/12/17 03:45 Labs: Laboratory Results - last 24 hr 12/11/17 12/11/17 12/11/17 06:42 06:42 06:42 WBC 9.6 RBC 2.49 L Hgb 8.4 L Hct 25.1 L MCV 101.0 H MCH 33.8 MCHC 33.5 RDW 20.1 H Plt Count 112 L MPV 8.2 Prelim Diff (Auto) Slide review pending Neut % (Auto) 78.7 H Lymph % (Auto) 12.6 Hand % (Auto) 7.5 Eos % (Auto) 0.6 Baso % (Auto) 0.6 Neut # (Auto) 7.5 Lymph # (Auto) 1.2 Hand # (Auto) 0.7 Eos # (Auto) 0.1 Baso # (Auto) 0.1 WBC Differential Manual diff final Seg Neuts % (Manual) 68 Band Neuts % (Manual) 21 H Lymphocytes % (Manual) 3 L Monocytes % (Manual) 6 Eosinophils % (Manual) 1 Metamyelocytes % (Man) 1 Abs Neuts (Manual) 8.6 H Differential Comment . Toxic Granulation 2+ H Platelet Estimate Low L Platelet Morphology Normal Ovalocytes 1+ H Sodium 145 Potassium 3.3 L Chloride 102 Carbon Dioxide 34.0 H Anion Gap 9 BUN 34 H Creatinine 1.22 Estimated GFR 57 L Random Glucose 110 H Calcium 8.3 L Total Bilirubin 1.5 H AST 19 ALT 14 Alkaline Phosphatase 65 Troponin I B-Natriuretic Peptide Total Protein 6.3 L Albumin 1.8 L TSH 1.600 Free T4 1.33 12/11/17 12/12/17 12/12/17 17:25 03:45 03:45 WBC 6.2 RBC 2.48 L Hgb 8.4 L Hct 25.0 L MCV 100.7 H MCH 34.0 MCHC 33.7 RDW 19.8 H Plt Count 116 L MPV 8.4 Prelim Diff (Auto) Neut % (Auto) Lymph % (Auto) Hand % (Auto) Eos % (Auto) Baso % (Auto) Neut # (Auto) Lymph # (Auto) Hand # (Auto) Eos # (Auto) Baso # (Auto) WBC Differential Seg Neuts % (Manual) Band Neuts % (Manual) Lymphocytes % (Manual) Monocytes % (Manual) Eosinophils % (Manual) Metamyelocytes % (Man) Abs Neuts (Manual) Differential Comment Toxic Granulation Platelet Estimate Platelet Morphology Ovalocytes Sodium Potassium Chloride Carbon Dioxide Anion Gap BUN Creatinine Estimated GFR Random Glucose Calcium Total Bilirubin AST ALT Alkaline Phosphatase Troponin I 0.07 H B-Natriuretic Peptide 350 H Total Protein Albumin TSH Free T4 12/12/17 03:45 WBC RBC Hgb Hct MCV MCH MCHC RDW Plt Count MPV Prelim Diff (Auto) Neut % (Auto) Lymph % (Auto) Hand % (Auto) Eos % (Auto) Baso % (Auto) Neut # (Auto) Lymph # (Auto) Hand # (Auto) Eos # (Auto) Baso # (Auto) WBC Differential Seg Neuts % (Manual) Band Neuts % (Manual) Lymphocytes % (Manual) Monocytes % (Manual) Eosinophils % (Manual) Metamyelocytes % (Man) Abs Neuts (Manual) Differential Comment Toxic Granulation Platelet Estimate Platelet Morphology Ovalocytes Sodium 143 Potassium 3.3 L Chloride 103 Carbon Dioxide 33.3 H Anion Gap 7 BUN 33 H Creatinine 1.16 Estimated GFR 61 L Random Glucose 99 Calcium 8.4 L Total Bilirubin AST ALT Alkaline Phosphatase Troponin I B-Natriuretic Peptide Total Protein Albumin TSH Free T4 - Imaging Chest X-Ray 12/10/17 17:48 CONCLUSION: Left greater than the right bibasilar atelectasis and small effusions. Mild compensated cardiomegaly, stable. Head CT 12/10/17 17:48 CONCLUSION: 1. No acute intracranial hemorrhage. No mass effect or midline shift. 2. 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 3. Previously seen right frontal lobe hemorrhage has resolved. A small area of encephalomalacia has developed. 4. The previously seen small subarachnoid hemorrhage on the left has resolved. . Assessment and Plan - Plan HIgh grade 4/4 strep bacteremia, r/o endovascular infection -other source ? PNA Abnormal CXR Abnormal UA - 2 D echo - repeat CXR, possibly CT - cont vancomycin - cont c cefepime P urine culture - further rec's to follow per w/u and clin progress
--- NOTE | 2017-12-12 07:07 | XR ---
EXAM DATE: 12/12/2017 6:59 AM EDT AGE/SEX: 81 years / Male INDICATIONS: Cough, weakness, short of breath CLINICAL DATA: This is the patient's subsequent encounter. Patient reports that signs and symptoms h ave been present for 3 weeks and indicates a pain score of 2/10. MEDICAL/SURGICAL HISTORY: Cardiovascular disease. Congestive heart failure. Anemia. CABG. [place] [facility] [place]. . FINDINGS: Persistent mild bibasilar infiltrates and small effusions, left worse than right. Cardiac silhouette is unchanged. CONCLUSION: No significant interval change Electronically signed by: Pato Storm MD 12/12/2017 7:05 AM EDT
[2017-12-12] MEDS: Metoprolol Tartrate 50 MG Tablet PO SCH ×2 (08:17→21:24)
[2017-12-12] MEDS: Furosemide 40 MG Tablet PO SCH (08:17)
[2017-12-12] MEDS: levETIRAcetam 500 MG Tablet PO SCH ×2 (08:17→21:24)
[2017-12-12] MEDS: Senna/Docusate Sodium 8.6/50 MG Tablet PO SCH ×2 (08:17→21:24)
[2017-12-12] MEDS: Lisinopril 10 MG Tablet PO SCH (08:17)
[2017-12-12] MEDS: Pilocarpine HCl 5 MG Tablet PO SCH ×2 (08:18→21:24)
[2017-12-12] MEDS: dilTIAZem CD 180 MG Capsule PO SCH (08:18)
--- NOTE | 2017-12-12 09:36 | P.PNIM ---
Subjective Interval history: Follow up bacteriemia gram positive cocci Patient reports feeling about the same today as yesterday loose stool twice a day Patient denies dysuria Patient noticed patient has had a cough productive of yellow phlegm Physical Exam Vital signs: Vital Signs 12/11/17 12:00 12/11/17 15:34 12/11/17 19:41 Temperature 97.3 F L 97.1 F L 97.4 F L Pulse Rate 93 H 86 103 H Respiratory Rate 18 17 20 Blood Pressure 98/55 L 96/52 L 124/64 Pulse Oximetry 96 96 97 12/11/17 20:00 12/11/17 21:02 12/12/17 00:00 Temperature 97.4 F L Pulse Rate 118 H 110 H 85 Respiratory Rate 20 Blood Pressure 109/56 L Pulse Oximetry 90 L 12/12/17 04:00 12/12/17 07:57 Temperature 97.4 F L 97.2 F L Pulse Rate 103 H 105 H Respiratory Rate 20 18 Blood Pressure 111/55 L 118/85 Pulse Oximetry 96 96 Intake & Output 12/11/17 12/12/17 12/12/17 18:59 06:59 18:59 Intake Total 1682.5 / 1682.5 832.5 / 832.5 Output Total 600 / 600 300 / 300 100 / 100 Balance 1082.5 / 1082.5 532.5 / 532.5 -100 / -100 Weight 0 g Intake: IV 1062.5 / 1062.5 712.5 / 712.5 1/2 Normal Saline Inj 1,000 ML 600 / 600 @ 75 mls/hr IV.CONT .[id number] [facility] Rx#:[id number] Maxipime Inj 1,000 MG In NS Inj 200 / 200 200 / 200 100 ML @ 200 mls/hr IV.SIG Q8H [facility] Rx#:[id number] NS Inj 250 ML @ 15 mls/hr IV. 0 / 0 SIG ONCE [facility] Rx#:[id number] Vancomycin Inj 1,250 MG In NS 262.5 / 262.5 262.5 / 262.5 Inj 250 ML @ 250 mls/hr IV.SIG Q12H [facility] Rx#:[id number] Oral 620 / 620 120 / 120 Output: Urine 600 / 600 300 / 300 100 / 100 Other: # Voids 2 # Bowel Movements 2 Narrative: GENERAL: 81 year old male patient A&O SKIN: Warm and dry. small stage two ulceration left buttock 2-3cm HEAD: Normocephalic. EYES: No scleral icterus. No injection or drainage. NECK: stiff neck CARDIOVASCULAR: Irregularly irregular RESPIRATORY: clear bilaterally GASTROINTESTINAL: Abdomen soft, non-tender, nondistended. MUSCULOSKELETAL: No cyanosis, or edema. BACK: Nontender without obvious deformity. No CVA tenderness. Results - Labs CBC & Chem 7: 12/12/17 03:45 12/12/17 03:45 Laboratory Results - last 24 hr 12/11/17 12/11/17 12/11/17 06:42 06:42 17:25 WBC RBC Hgb Hct MCV MCH MCHC RDW Plt Count MPV WBC Differential Manual diff final Seg Neuts % (Manual) 68 Band Neuts % (Manual) 21 H Lymphocytes % (Manual) 3 L Monocytes % (Manual) 6 Eosinophils % (Manual) 1 Metamyelocytes % (Man) 1 Abs Neuts (Manual) 8.6 H Toxic Granulation 2+ H Platelet Estimate Low L Platelet Morphology Normal Ovalocytes 1+ H Sodium Potassium Chloride Carbon Dioxide Anion Gap BUN Creatinine Estimated GFR Random Glucose Calcium Troponin I 0.07 H B-Natriuretic Peptide TSH 1.600 Free T4 1.33 12/12/17 12/12/17 12/12/17 03:45 03:45 03:45 WBC 6.2 RBC 2.48 L Hgb 8.4 L Hct 25.0 L MCV 100.7 H MCH 34.0 MCHC 33.7 RDW 19.8 H Plt Count 116 L MPV 8.4 WBC Differential Seg Neuts % (Manual) Band Neuts % (Manual) Lymphocytes % (Manual) Monocytes % (Manual) Eosinophils % (Manual) Metamyelocytes % (Man) Abs Neuts (Manual) Toxic Granulation Platelet Estimate Platelet Morphology Ovalocytes Sodium 143 Potassium 3.3 L Chloride 103 Carbon Dioxide 33.3 H Anion Gap 7 BUN 33 H Creatinine 1.16 Estimated GFR 61 L Random Glucose 99 Calcium 8.4 L Troponin I B-Natriuretic Peptide 350 H TSH Free T4 Microbiology 12/10/17 20:45 Clean Catch Urine Urine Culture - Final <10,000 cfu/mL gram positive edouard - no further workup 12/10/17 18:30 Blood - Peripheral Aerobic Blood Culture - Preliminary Streptococcus species 12/10/17 18:30 Blood - Peripheral Anaerobic Blood Culture - Preliminary gram positive cocci 12/10/17 18:30 Blood - Peripheral Aerobic Blood Culture - Preliminary gram positive cocci 12/10/17 18:30 Blood - Peripheral Anaerobic Blood Culture - Preliminary gram positive cocci - Imaging Impressions Chest X-Ray 12/12/17 06:05 CONCLUSION: No significant interval change Assessment and Plan - Assessment (1) Bacteremia Code(s): R78.81 - Bacteremia Status: Acute Plan: 81-year-old white male who was in [facility] and over the last several days had decreased appetite with increasing weakness lab work showed an elevated WBC count in the low hemoglobin he was transferred to [facility] family' s request. Hemoglobin in the emergency room was approximately 8 WBC count was approximately 7[address]39 and with a slight elevation in heart rate does meet criteria for sepsis protocol and will be admitted for further evaluation may need blood transfusion as well. Bacteremia Leukocytosis WBC on admission 13.6 -> 9.6 (12/11) The patient is meeting some sepsis protocol will start on IV vancomycin cefepime note has a questionable history of allergy to penicillin Gram positive cocci 07/03 bottles Consult placed to LESLIE Pang, appreciate input ?stiff neck suspicious for nuchal rigidity, consult IR for possible LP - patient and refuse LP will DC order CXR 12/12 reveals: Persistent mild bibasilar infiltrates and small effusions, left worse than right. Cardiac silhouette is unchanged. Will order CT scan of the chest Urine culture reveals: < 10,000 gram positive edouard Anemia guaiac negative in ER Hemoglobin 8.1 in admission s/p 1 unit PRBCs 12/11 repeat hgb (12/11) 8.4 -> (12/12) 8.4 Subarachnoid hemorrhage In October patient last his footing at home and was found to have bilateral frontal subarachnoid hemorrhage admitted to the hospital neuro surgery was consult, and patient had repeated MRIs and CTs some improvement in the subarachnoid hemorrhages and the decision was made to transfer him to rehab facility. Of note his hemoglobin was low at approximately 7 and he did receive 2 units of blood was to undergo a GI workup but due to the subarachnoid hemorrhage that was put on hold. Patient was on Coumadin which has been DC'd due to his subarachnoid hemorrhage. Stable based on recent CT History of CHF (congestive heart failure) Chest x-ray still shows some small effusions - continue home Lasix 40 mg PO daily troponin level slightly elevated on admission 0.08, patient denies chest pain will repeat now to establish trend BNP 395 will continue home Lasix for now, recheck BNP in AM also A-fib Atrial fib is stable at present we will continue metoprolol diltiazem Hypokalemia potassium 3.3 replaced and started potassium 20 meq daily add on Mag recheck in AM DVT prophylaxis with SCDs avoid chemical DVT prophylaxis due to recent Subarachnoid hemorrhage The exam, history, and the medical decision-making described in the above note were completed with the assistance of the mid-level provider. I reviewed and agree with the findings presented. I attest that I had a [id number] encounter with the patient on the same day, and personally performed and documented my assessment and findings in the medical record. bacteremia. 4/4 bottles of strep species. possible pna source. echo pending to exclude endocarditis. cont abx. mental status nml today. dc LP.
[2017-12-12] MEDS: Vancomycin Inj 1,250 MG in Sodium Chlor 0.9% Inj 250 ML IV.SIG SCH (12:18)
--- NOTE | 2017-12-12 14:19 | ECHRPT ---
Indication: sepsis endocarditis CONCLUSIONS Mildly dilated left ventricle. Wall thickness is measured at the upper limits of normal. The left ventricular systolic function is severely reduced with global hypokinesis and an estimated ejection fraction in the range of 25-30%. The left atrial size is [id number] dilated. Atrial septal aneurysm is present (benign finding). Mitral annular calcification is present. Trace mitral valve regurgitation. Aortic valve sclerosis is present. Mild aortic valve regurgitation. The estimated pulmonary arterial pressure is 37 mmHg. A moderate left sided pleural effusion is noted. No obvious valvular vegetations visualized. However, if high clinical suspicion, would recommend REBA for more definitive evaluation. BP: / HR: Rhythm: MEASUREMENTS (Male / Female) Normal Values Technical Quality: 2D ECHO LV Diastolic Diameter PLAX 6.0 cm 4.2 - 5.9 / 3.9 - 5.3 cm LV Systolic Diameter PLAX 5.2 cm IVS Diastolic Thickness 1.2 cm 0.6 - 1.0 / 0.6 - 0.9 cm LVPW Diastolic Thickness 0.7 cm 0.6 - 1.0 / 0.6 - 0.9 cm LV Relative Wall Thickness 0.3 LA Systolic Diameter LX 5.7 cm 3.0 - 4.0 / 2.7 - 3.8 cm M-MODE AV Cusp Separation MM 1.8 cm DOPPLER TR Peak Velocity 259.0 cm/s TR Peak Gradient 26.8 mmHg Right Atrial Pressure 10.0 mmHg Pulmonary Artery Systolic Pressu 36.8 mmHg Right Ventricular Systolic Press 36.8 mmHg FINDINGS LEFT VENTRICLE Mildly dilated left ventricle. Wall thickness is measured at the upper limits of normal. The left ventricular systolic function is severely reduced with global hypokinesis and an estimated ejection fraction in the range of 25-30%. RIGHT VENTRICLE Normal right ventricular size and systolic function. LEFT ATRIUM The left atrial size is [id number] dilated. RIGHT ATRIUM The right atrial size is normal. ATRIAL SEPTUM Atrial septal aneurysm is present (benign finding). AORTA The aortic root and proximal ascending aorta are normal in size on limited imaging. MITRAL VALVE Mitral annular calcification is present. Trace mitral valve regurgitation. AORTIC VALVE Aortic valve sclerosis is present. Mild aortic valve regurgitation. TRICUSPID VALVE There is trace tricuspid valve regurgitation. The estimated pulmonary arterial pressure is 37 mmHg. PULMONARY VALVE No pulmonary valve regurgitation or stenosis. VESSELS The inferior vena cava is normal in size. PERICARDIUM A moderate left sided pleural effusion is noted. Donato Borjas (Electronically Signed) Final Date:12 December 2017 14:18
--- NOTE | 2017-12-12 15:23 | CT ---
EXAM DATE: 12/12/2017 3:19 PM EDT AGE/SEX: 81 years / Male INDICATIONS: Cough. CLINICAL DATA: This is the patient's initial encounter. Patient reports that signs and symptoms have been present for 2 days and indicates a pain score of 4/10. MEDICAL/SURGICAL HISTORY: Congestive heart failure. Cerebrovascular disease. None. RADIATION DOSE: 9.59 CTDI (mGy) COMPARISON: C, CHEST 1V SINGLE AP, 12/12/2017. . TECHNIQUE: Multiple contiguous axial images were obtained through the chest without contrast. Image s were obtained in suspended respiration using multiple row detector helical technique. Using automa sid exposure control and adjustment of the mA and/or kV according to patient size, radiation dose was kept as low as reasonably achievable to obtain optimal diagnostic quality images. DICOM format imag e data is available electronically for review and comparison. FINDINGS: Mild bibasilar infiltrates. Small bilateral effusions. Cardiac enlargement with coronary artery calcifications. No evidence of mediastinal mass. No evidence of axillary adenopathy or chest wall destruction. CONCLUSION: 1. Mild basilar infiltrates and small effusions. 2. Cardiac enlargement. Electronically signed by: Pato Storm MD 12/12/2017 3:21 PM EDT
--- NOTE | 2017-12-12 17:29 | P.CONPAL ---
Consult Service: Palliative Care Requesting Physician: Cristian Hunt Reason for Consult: a. To assist with evaluation and management of symptoms including: Weakness, decreased appetite b. To assist medical decision maker(s) with: better understanding of current medical conditions; weighing benefits/burdens of medical treatment options; making medical treatment decisions. Primary Care Provider: Madhav Mcleod MD History of Present Illness History of Present Illness: This is a 81-year-old male with a past medical history of anemia, atrial fibrillation, congestive heart failure, neck pain, CVA and intracranial hemorrhage status post fall in 11/16 who was undergoing rehabilitation therapy at [facility] when he was brought to the hospital due to weakness. He had previously been admitted following a fall with an intracranial hemorrhage. During his stay at [facility] he lost his appetite and became increasingly weak. He is chronically anemic with a normal hemoglobin range at about 9. Endoscopy and colonoscopy had not been performed at the prior admission due to the intracranial hemorrhage. There was no history known of black or bloody stools. He was seen for anemia workup 11/[address] Martínez however no results are noted in the chart. Clinical findings on admission * Labs showed WBC 13.6, hemoglobin 8.1, hematocrit 24.7, platelets 131, PT 12.6 , INR 1.2, sodium 144, potassium 3.5, BUN 32, creatinine 1.23, normal transaminase, lactic acid 1.7, troponin 0 0.08. * 2D echocardiogram done 12/12 shows severely reduced left ventricular systolic function with an estimated EF of 25-30%, dilated left atrium, mild pulmonary hypertension with PAP 37 mmHg, moderate left-sided pleural effusion, no obvious valvular vegetations. This is in conflict with 2D echocardiogram taken 11/22/17 showing a suboptimal study with an estimated EF of 60%. * Chest x-ray shows left greater than right bibasilar atelectasis and small effusions mild compensated cardiomegaly. * CT of the head shows no intracranial hemorrhage, mass-effect or midline shift. Small subacute subdural hemorrhage on the right and chronic subdural hematoma on the left with previously seen right frontal lobe hemorrhage resolved. A small area of encephalomalacia. Previously seen small subarachnoid hemorrhage on the left has resolved. * Electrocardiogram showed atrial fibrillation with rapid ventricular response with aberrant conduction or ventricular premature complexes, right bundle branch block, lateral SD, inferior SD. Infectious disease was consulted and opines a high-grade strep bacteremia in 4 out of 4 cultures suspecting endovascular infection versus pneumonia. He has been placed on cefepime pending finalization of the cultures. A 2D echocardiogram was requested to evaluate for possible endocarditis/vegetation, none of which was seen on the transthoracic echocardiogram. At this time no REBA has been requested. This is an alert elderly male, very hard of hearing and mildly irritable lying in bed in no acute distress. He is eating ice cream , being fed by his . He is able to answer questions but takes some time to organize his thoughts and recall the answers. His verifies that the answers he gives are correct. Function/Cognitive Trajectory: Since his fall with intracranial bleed in October 2017, he has had a significant decline. His states he has not really been eating since he went into [place] on 11/25. He was starting to progress at physical therapy, however appetite declined, he stopped eating and drinking and is progressively more weak. . Review of Systems Constitutional: Reports weakness Ears, Nose, Mouth, and Throat: Reports hearing loss Cardiovascular: Reports irregular heart rhythm Musculoskeletal: Reports neck pain PMFSH - History History Provided By: Significant Other, Medical Record - Medical History Medical History: Medical History (Last Updated 12/12/17 @ 18:13 by YANG Ferrer) Stroke (Acute) Neck pain (Acute) Arthritis (Acute) Atrial fibrillation (Acute) CHF (congestive heart failure) (Acute) Anemia (Acute) - Surgical History Surgical History: Surgical History (Last Updated 12/12/17 @ 18:13 by YANG Ferrer) S/P CABG x 4 (Acute) History of appendectomy (Acute) - Family History Family History: Family History (Last Updated 12/12/17 @ 05:58 by Frances Pang MD) Other Family history unobtainable - Tobacco History Second Hand Smoke Exposure: No Tobacco Use In Past 30 Days: No Smoking Status: Former smoker Tobacco Type: Cigarettes - Alcohol History How Often Do You Have a Drink Containing Alcohol: Monthly or less - Substance Use History Substance History: No History of Abuse - Travel History Recent Travel in the [place] Within the Last 8 Weeks: No Recent Travel Out of the Country Within the Last 8 Weeks: No - Immunization History Tetanus Immunization: <5 Years Hx Influenza Vaccine This Season: No Medications and Allergies Active Medications: Active Medications Acetaminophen (Tylenol) 650 mg PO Q4H PRN PRN Reason: Temp > 100.4 Al Hydroxide/Mg Hydroxide (Milk Of Magnesia Liq) 30 ml PO Q12H PRN PRN Reason: Mild Constipation Atorvastatin Calcium (Lipitor) 80 mg PO DAILY [facility] Last Admin: 12/12/17 08:17 Dose: 80 mg Bisacodyl (Dulcolax Supp) 10 mg RECTAL DAILY PRN PRN Reason: SEVERE CONSITIPATION Diltiazem HCl (Cardizem Cd 24hr) 180 mg PO DAILY [facility] Last Admin: 12/12/17 08:18 Dose: 180 mg Furosemide (Lasix) 40 mg PO DAILY [facility] Last Admin: 12/12/17 08:17 Dose: 40 mg Cefepime HCl 1,000 mg/ Sodium (Chloride) 100 mls @ 200 mls/hr IV.SIG Q8H [facility] Last Infusion: 12/12/17 16:03 Dose: Infused Pharmacy Profile Note (Vancomycin Consult Pharmacy) 0 mls @ 0 mls/hr OTHER UNSCH [facility] Vancomycin HCl 1,250 mg/ (Sodium Chloride) 262.5 mls @ 250 mls/hr IV.SIG Q12H [facility] Last Infusion: 12/12/17 14:30 Dose: Infused Sodium Chloride (Ns Inj) 1,000 mls @ 42 mls/hr IV.CONT .[id number] [facility] Last Infusion: 12/12/17 16:02 Dose: 42 mls/hr Lactulose (Lactulose Liq) 30 ml PO DAILY PRN PRN Reason: SEVERE CONSITIPATION Levetiracetam (Keppra) 500 mg PO BID [facility] Last Admin: 12/12/17 08:17 Dose: 500 mg Lisinopril (Prinivil) 10 mg PO DAILY [facility] Last Admin: 12/12/17 08:17 Dose: 10 mg Metoprolol Tartrate (Lopressor) 50 mg PO BID [facility] Last Admin: 12/12/17 08:17 Dose: 50 mg Miscellaneous Information ([facility] Ordered Lab Info) 1 each OTHER ONCE [facility] Pantoprazole Sodium (Protonix Inj) 40 mg IV.PUSH Q24H [facility] Last Admin: 12/11/17 21:18 Dose: 40 mg Pilocarpine HCl (Salagen) 5 mg PO BID [facility] Last Admin: 12/12/17 08:18 Dose: 5 mg Potassium Chloride (K-Dur) 20 meq PO DAILY [facility] Last Admin: 12/12/17 12:19 Dose: 20 meq Senna/Docusate Sodium (Jackeline-Colace) 1 tab PO BID [facility] Last Admin: 12/12/17 08:17 Dose: 1 tab Sennosides (Senokot) 17.2 mg PO Q12H PRN PRN Reason: Moderate Constipation Allergies Allergy/AdvReac Type Severity Reaction Status Date / Time penicillin G Allergy Mild UNKNOWN Verified 12/10/17 17:44 Penicillins Allergy Nausea Verified 12/10/17 17:45 Home Medications Medication Instructions Recorded Confirmed Type atorvastatin 80 mg PO DAILY 11/19/17 12/10/17 History furosemide [Lasix] 40 mg PO DAILY 11/19/17 12/10/17 History lisinopril 10 mg PO DAILY 11/19/17 12/10/17 History metoprolol tartrate 50 mg PO BID 11/19/17 12/10/17 History pilocarpine HCl 5 mg PO BID 11/19/17 12/10/17 History Advance Directives Living Will: Yes Healthcare Surrogate: No Physical Exam Vital Signs: Vital Signs - 24 hr 12/11/17 19:41 12/11/17 20:00 12/11/17 21:02 Temperature 97.4 F L Pulse Rate 103 H 118 H 110 H Respiratory Rate 20 Blood Pressure 124/64 Pulse Oximetry 97 12/12/17 00:00 12/12/17 04:00 12/12/17 07:57 Temperature 97.4 F L 97.4 F L 97.2 F L Pulse Rate 85 103 H 105 H Respiratory Rate 20 20 18 Blood Pressure 109/56 L 111/55 L 118/85 Pulse Oximetry 90 L 96 96 12/12/17 12:00 Temperature 97.9 F Pulse Rate 96 H Respiratory Rate 20 Blood Pressure 112/56 L Pulse Oximetry 96 I&O: Intake & Output 12/10/17 12/11/17 12/12/17 12/13/17 06:59 06:59 06:59 06:59 Intake Total 965 / 965 2515.0 / 2515.0 962.5 / 962.5 Output Total 200 / 200 900 / 900 100 / 100 Balance 765 / 765 1615.0 / 1615.0 862.5 / 862.5 Weight 250 lb 0.067 oz 0 oz Physical Exam: CONSTITUTIONAL/GENERAL: This is an adequately nourished patient, in no apparent distress. TUBES/LINES/DRAINS: Left AC PIV SKIN: No jaundice, rashes, or lesions. Ecchymoses on upper extremities. No wounds seen anteriorly. Skin temperature appropriate. Not diaphoretic. HEAD: Atraumatic. Normocephalic. EYES: Pupils equal and round and reactive. Extraocular motions intact. No scleral icterus. No injection or drainage. Fundi not examined. ENT: Hearing diminished. Nose without bleeding or purulent drainage. Throat without visible erythema, exudates, masses, or lesions. NECK: Trachea midline. Stiff, tender to palpation. No palpable thyroid enlargement or nodularity. CARDIOVASCULAR: Irregular rhythm, controlled rate with no rub murmur or gallop. RESPIRATORY/CHEST: Symmetric, unlabored respirations. Clear to auscultation. Breath sounds diminished. No wheezes, rales, or rhonchi. GASTROINTESTINAL: Abdomen soft, non-tender, nondistended. No hepato-splenomegaly , or palpable masses. No guarding. Bowel sounds present. GENITOURINARY: Without palpable bladder distension. Voiding MUSCULOSKELETAL: Extremities without clubbing, cyanosis, or edema. No joint tenderness or effusion noted. No calf tenderness. No mottling or clubbing. LYMPHATICS: No palpable cervical or supraclavicular adenopathy. NEUROLOGICAL: Awake and alert. Motor and sensory grossly within normal limits. Follows commands. moves all extremities. PSYCHIATRIC: No obvious anxiety/depression. no apparent hallucinations or other psychotic thought process. . Diagnostic Tests Laboratory: Laboratory Results - last 72 hr 12/10/17 12/10/17 12/10/17 14:41 14:41 14:41 WBC 13.6 H RBC 2.47 L Hgb 8.1 L Hct 24.7 L MCV 100.2 H MCH 32.7 MCHC 32.7 RDW 20.5 H Plt Count 131 L MPV 8.5 Prelim Diff (Auto) Slide review pending Neut % (Auto) 81.1 H Lymph % (Auto) 12.8 Donley % (Auto) 5.4 Eos % (Auto) 0.3 Baso % (Auto) 0.4 Neut # (Auto) 11.0 H Lymph # (Auto) 1.7 Donley # (Auto) 0.7 Eos # (Auto) 0.0 Baso # (Auto) 0.1 WBC Differential Manual diff final Seg Neuts % (Manual) 81 H Band Neuts % (Manual) 14 H Lymphocytes % (Manual) 4 L Monocytes % (Manual) Eosinophils % (Manual) Metamyelocytes % (Man) 1 Abs Neuts (Manual) 13.1 H Differential Comment . Toxic Granulation 2+ H Dohle Bodies Present H Platelet Estimate Low L Platelet Morphology Normal Ovalocytes Stomatocytes 1+ H PT 12.6 H INR 1.2 APTT 27.3 Sodium 144 Potassium 3.5 Chloride 101 Carbon Dioxide 37.0 H Anion Gap 6 BUN 32 H Creatinine 1.23 Estimated GFR 57 L Random Glucose 116 H Lactic Acid Calcium 8.6 Magnesium Total Bilirubin 1.0 AST 21 ALT 16 Alkaline Phosphatase 73 Troponin I B-Natriuretic Peptide Total Protein 6.5 Albumin 1.9 L TSH Free T4 Urine Color Urine Clarity Urine pH Ur Specific [place] Urine Protein Urine Glucose (UA) Urine Ketones Urine Occult Blood Urine Nitrate Urine Bilirubin Urine Urobilinogen Ur Leukocyte Esterase Urine RBC Urine WBC Ur Squamous Epith Cells Calcium Oxalate Crystal Urine Bacteria Hyaline Casts Urine Mucus Micro UA Comment Ur Microscopic Review Urine Culture Comments Blood Type Antibody Screen MTS Gel Crossmatch 12/10/17 12/10/17 12/10/17 18:30 18:30 18:30 WBC RBC Hgb Hct MCV MCH MCHC RDW Plt Count MPV Prelim Diff (Auto) Neut % (Auto) Lymph % (Auto) Donley % (Auto) Eos % (Auto) Baso % (Auto) Neut # (Auto) Lymph # (Auto) Donley # (Auto) Eos # (Auto) Baso # (Auto) WBC Differential Seg Neuts % (Manual) Band Neuts % (Manual) Lymphocytes % (Manual) Monocytes % (Manual) Eosinophils % (Manual) Metamyelocytes % (Man) Abs Neuts (Manual) Differential Comment Toxic Granulation Dohle Bodies Platelet Estimate Platelet Morphology Ovalocytes Stomatocytes PT INR APTT Sodium Potassium Chloride Carbon Dioxide Anion Gap BUN Creatinine Estimated GFR Random Glucose Lactic Acid 1.7 Calcium Magnesium Total Bilirubin AST ALT Alkaline Phosphatase Troponin I 0.08 H B-Natriuretic Peptide 395 H Total Protein Albumin TSH Free T4 Urine Color Urine Clarity Urine pH Ur Specific [place] Urine Protein Urine Glucose (UA) Urine Ketones Urine Occult Blood Urine Nitrate Urine Bilirubin Urine Urobilinogen Ur Leukocyte Esterase Urine RBC Urine WBC Ur Squamous Epith Cells Calcium Oxalate Crystal Urine Bacteria Hyaline Casts Urine Mucus Micro UA Comment Ur Microscopic Review Urine Culture Comments Blood Type Antibody Screen MTS Gel Crossmatch 12/10/17 12/10/17 12/10/17 18:30 18:30 20:45 WBC RBC Hgb Hct MCV MCH MCHC RDW Plt Count MPV Prelim Diff (Auto) Neut % (Auto) Lymph % (Auto) Donley % (Auto) Eos % (Auto) Baso % (Auto) Neut # (Auto) Lymph # (Auto) Donley # (Auto) Eos # (Auto) Baso # (Auto) WBC Differential Seg Neuts % (Manual) Band Neuts % (Manual) Lymphocytes % (Manual) Monocytes % (Manual) Eosinophils % (Manual) Metamyelocytes % (Man) Abs Neuts (Manual) Differential Comment Toxic Granulation Dohle Bodies Platelet Estimate Platelet Morphology Ovalocytes Stomatocytes PT INR APTT Sodium Potassium Chloride Carbon Dioxide Anion Gap BUN Creatinine Estimated GFR Random Glucose Lactic Acid Calcium Magnesium Total Bilirubin AST ALT Alkaline Phosphatase Troponin I B-Natriuretic Peptide Total Protein Albumin TSH Free T4 Urine Color [place] Urine Clarity Cloudy H Urine pH 5.0 Ur Specific [place] 1.015 Urine Protein 30 H Urine Glucose (UA) Negative Urine Ketones Negative Urine Occult Blood Large H Urine Nitrate Negative Urine Bilirubin Negative Urine Urobilinogen 2.0 H Ur Leukocyte Esterase Negative Urine RBC 59 H Urine WBC 8 H Ur Squamous Epith Cells <1 Calcium Oxalate Crystal Rare H Urine Bacteria Moderate H Hyaline Casts 3 Urine Mucus Few H Micro UA Comment Culture indicated Ur Microscopic Review Not Reportable Urine Culture Comments Culture indicated Blood Type A Positive Antibody Screen Negative MTS Gel Crossmatch See Detail See Detail 12/11/17 12/11/17 12/11/17 06:42 06:42 06:42 WBC 9.6 RBC 2.49 L Hgb 8.4 L Hct 25.1 L MCV 101.0 H MCH 33.8 MCHC 33.5 RDW 20.1 H Plt Count 112 L MPV 8.2 Prelim Diff (Auto) Slide review pending Neut % (Auto) 78.7 H Lymph % (Auto) 12.6 Donley % (Auto) 7.5 Eos % (Auto) 0.6 Baso % (Auto) 0.6 Neut # (Auto) 7.5 Lymph # (Auto) 1.2 Donley # (Auto) 0.7 Eos # (Auto) 0.1 Baso # (Auto) 0.1 WBC Differential Manual diff final Seg Neuts % (Manual) 68 Band Neuts % (Manual) 21 H Lymphocytes % (Manual) 3 L Monocytes % (Manual) 6 Eosinophils % (Manual) 1 Metamyelocytes % (Man) 1 Abs Neuts (Manual) 8.6 H Differential Comment . Toxic Granulation 2+ H Dohle Bodies Platelet Estimate Low L Platelet Morphology Normal Ovalocytes 1+ H Stomatocytes PT INR APTT Sodium 145 Potassium 3.3 L Chloride 102 Carbon Dioxide 34.0 H Anion Gap 9 BUN 34 H Creatinine 1.22 Estimated GFR 57 L Random Glucose 110 H Lactic Acid Calcium 8.3 L Magnesium Total Bilirubin 1.5 H AST 19 ALT 14 Alkaline Phosphatase 65 Troponin I B-Natriuretic Peptide Total Protein 6.3 L Albumin 1.8 L TSH 1.600 Free T4 1.33 Urine Color Urine Clarity Urine pH Ur Specific [place] Urine Protein Urine Glucose (UA) Urine Ketones Urine Occult Blood Urine Nitrate Urine Bilirubin Urine Urobilinogen Ur Leukocyte Esterase Urine RBC Urine WBC Ur Squamous Epith Cells Calcium Oxalate Crystal Urine Bacteria Hyaline Casts Urine Mucus Micro UA Comment Ur Microscopic Review Urine Culture Comments Blood Type Antibody Screen MTS Gel Crossmatch 12/11/17 12/12/17 12/12/17 17:25 03:45 03:45 WBC 6.2 RBC 2.48 L Hgb 8.4 L Hct 25.0 L MCV 100.7 H MCH 34.0 MCHC 33.7 RDW 19.8 H Plt Count 116 L MPV 8.4 Prelim Diff (Auto) Neut % (Auto) Lymph % (Auto) Donley % (Auto) Eos % (Auto) Baso % (Auto) Neut # (Auto) Lymph # (Auto) Donley # (Auto) Eos # (Auto) Baso # (Auto) WBC Differential Seg Neuts % (Manual) Band Neuts % (Manual) Lymphocytes % (Manual) Monocytes % (Manual) Eosinophils % (Manual) Metamyelocytes % (Man) Abs Neuts (Manual) Differential Comment Toxic Granulation Dohle Bodies Platelet Estimate Platelet Morphology Ovalocytes Stomatocytes PT INR APTT Sodium Potassium Chloride Carbon Dioxide Anion Gap BUN Creatinine Estimated GFR Random Glucose Lactic Acid Calcium Magnesium Total Bilirubin AST ALT Alkaline Phosphatase Troponin I 0.07 H B-Natriuretic Peptide 350 H Total Protein Albumin TSH Free T4 Urine Color Urine Clarity Urine pH Ur Specific [place] Urine Protein Urine Glucose (UA) Urine Ketones Urine Occult Blood Urine Nitrate Urine Bilirubin Urine Urobilinogen Ur Leukocyte Esterase Urine RBC Urine WBC Ur Squamous Epith Cells Calcium Oxalate Crystal Urine Bacteria Hyaline Casts Urine Mucus Micro UA Comment Ur Microscopic Review Urine Culture Comments Blood Type Antibody Screen MTS Gel Crossmatch 12/12/17 12/12/17 03:45 03:45 WBC RBC Hgb Hct MCV MCH MCHC RDW Plt Count MPV Prelim Diff (Auto) Neut % (Auto) Lymph % (Auto) Donley % (Auto) Eos % (Auto) Baso % (Auto) Neut # (Auto) Lymph # (Auto) Donley # (Auto) Eos # (Auto) Baso # (Auto) WBC Differential Seg Neuts % (Manual) Band Neuts % (Manual) Lymphocytes % (Manual) Monocytes % (Manual) Eosinophils % (Manual) Metamyelocytes % (Man) Abs Neuts (Manual) Differential Comment Toxic Granulation Dohle Bodies Platelet Estimate Platelet Morphology Ovalocytes Stomatocytes PT INR APTT Sodium 143 Potassium 3.3 L Chloride 103 Carbon Dioxide 33.3 H Anion Gap 7 BUN 33 H Creatinine 1.16 Estimated GFR 61 L Random Glucose 99 Lactic Acid Calcium 8.4 L Magnesium 2.0 Total Bilirubin AST ALT Alkaline Phosphatase Troponin I B-Natriuretic Peptide Total Protein Albumin TSH Free T4 Urine Color Urine Clarity Urine pH Ur Specific [place] Urine Protein Urine Glucose (UA) Urine Ketones Urine Occult Blood Urine Nitrate Urine Bilirubin Urine Urobilinogen Ur Leukocyte Esterase Urine RBC Urine WBC Ur Squamous Epith Cells Calcium Oxalate Crystal Urine Bacteria Hyaline Casts Urine Mucus Micro UA Comment Ur Microscopic Review Urine Culture Comments Blood Type Antibody Screen MTS Gel Crossmatch Result Diagrams: 12/12/17 03:45 12/12/17 03:45 Microbiology: Microbiology 12/10/17 18:30 Aerobic Blood Culture - Preliminary Blood - Peripheral Streptococcus species Anaerobic Blood Culture - Preliminary Streptococcus species 12/10/17 18:30 Aerobic Blood Culture - Preliminary Blood - Peripheral Streptococcus species Anaerobic Blood Culture - Preliminary Streptococcus species 12/10/17 20:45 Urine Culture - Final Clean Catch Urine <10,000 cfu/mL gram positive deouard - no further workup Imaging: Chest X-Ray 12/10/17 17:48 CONCLUSION: Left greater than the right bibasilar atelectasis and small effusions. Mild compensated cardiomegaly, stable. Head CT 12/10/17 17:48 CONCLUSION: 1. No acute intracranial hemorrhage. No mass effect or midline shift. 2. 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 3. Previously seen right frontal lobe hemorrhage has resolved. A small area of encephalomalacia has developed. 4. The previously seen small subarachnoid hemorrhage on the left has resolved. . Chest CT 12/12/17 00:00 CONCLUSION: 1. Mild basilar infiltrates and small effusions. 2. Cardiac enlargement. Chest X-Ray 12/12/17 06:05 CONCLUSION: No significant interval change Patient/Family Conference Present at Family Conference: Spoke with and patient at bedside. Reviewed palliative care purpose and focus as well as the below listed items. Reviewed clinical data, past medical, surgical, social and psychosocial history, much of which was provided by the patient. Discussed clinical findings, imaging findings, 2D echocardiogram and patient goals and wishes. After discussion of CPR and ventilation, and both agreed that he did not wish to be a FULL CODE and be resuscitated. DO NOT RESUSCITATE order will be entered in accordance with their wishes. . Family Conference Location: Bedside Issues Discussed: * Palliative care role, purpose, approach * Additional medical, psychosocial, and spiritual history * Patients general health, functional status, and cognitive changes in the months leading up to the current hospitalization * Patient/family understanding of the current medical problems * Patient/family understanding of prognosis * Patients goals of care as best understood from advance directives and/or conversations and/or values * Current medical treatment options and benefits/burdens of those options * Likely scenarios comparing ongoing aggressive care with a transition to comfort measures only * Questions answered to the best of my ability * Palliative care contact information provided Assessment and Plan Pertinent Non-Medical Issues: Psychosocial: He was born in [facility] and moved to [place] briefly before moving to [place] as a young child. He was not in the service. He and his have 4 children, 2 boys and 2 girls. Girls live locally, one son lives in [place] and one son in [facility]. His goal is to complete rehab and go home. Spiritual: They are being followed by their mushroom growth media mixer from their home [place]. Protestant adalberto. Legal: Living well at home. Requested copy be brought in. Ethical issues impacting care: None noted. . Important Contacts: : Marci Magdaleno , . Prognosis: His prognosis is guarded. He has significant cardiac disease including history of CABG, SD, atrial fibrillation, cardiomegaly, systolic heart failure with EF 25-30% and mild pulmonary hypertension. He has had at least 2 previous strokes and recently suffered a fall and intracranial bleed. His appetite is very poor and he suffers from weakness. He does have a baseline anemia that is in process of being evaluated by Dr. Martínez with no established etiology. This is his second hospitalization within a month and he was admitted with high grade Streptococcus. He has been experiencing a progressive decline recently and is at risk for continued complications, decline and hospitalizations. . Code Status: No Code DNR Plan: PLAN: Legal decision maker: At this time the patient appears capacitated for decision-making but due to generalized weakness, would recommend shared decision making with his is participating in all of his healthcare decisions. Per [place] statutes she would be the proxy decision-maker if he were to be determined to be not capacitated Goals: Aggressive short of no code CODE STATUS: DO NOT RESUSCITATE SYMPTOMS: * Weakness: Likely multifactorial to include infection, systolic heart failure, anemia, recent fall with intracranial hemorrhage, previous CVA and recurrent hospitalizations. He has generalized weakness and recently spent a couple weeks at [facility] in rehabilitation. He will likely require further therapy. PT is following. No further recommendations. * Decreased appetite: Uncertain etiology. Total protein is decreased at 6.3 as well as albumin at 1.8. He may benefit from a nutrition consult to maximize his recovery. SUMMARY This is a 81-year-old male recently seen in [place] after a fall with intracranial hemorrhage with a history of previous strokes cardiovascular disease and anemia. He was released to rehab where he continued to decline and was readmitted with a Streptococcus infection. He has multiple comorbidities, a significantly reduced ejection fraction and has had an evident decline over the last few months. While his goal is to go home after rehab, he is at risk for continued complications, decline and readmissions. Palliative care will continue to follow the patient during hospital course as condition evolves, to assist patient/decision-maker with understanding of their medical conditions, weighing benefits/burdens of treatment options, for clarification of goals of treatment. Additionally will assist with any symptoms of palliative concern. . Appreciation Thank you for the opportunity to participate in the care of Meek [place]. Attestation Attestation: To help prompt me to consider important information that might be impacting today's encounter and assessment, information from prior notes written by myself or my colleagues may have been "brought forward" into today's note. My signature on this note, however, is an attestation that I personally performed the exam, history, and/or decision-making noted today, and, unless otherwise indicated, the interactions with patient, family, and staff as well as the review of records all occurred today. I also attest that the listed assessment and stated plan reflect my best clinical judgment today based on the combination of historical information, prior notes, and today's exam/ interactions. When time spent is documented, it refers only to time spent today by the signer, or if indicated, combined time spent today by collaborating physician/nurse practitioner. .
[2017-12-12] MEDS: Sod Chloride 0.9% Inj 1,000 ML IV.CONT SCH (18:23)
--- NOTE | 2017-12-12 19:51 | P.PNID ---
Subjective Remarks: afebrile productive cought with yellow sputum [address] mild b/b infiltrates Antibiotics: vanco cefepime Allergies/Adverse Reactions: Allergies penicillin G Allergy (Mild, Verified 12/10/17 17:44) UNKNOWN Penicillins Allergy (Verified 12/10/17 17:45) Nausea Objective Vital Signs 12/11/17 20:00 12/11/17 21:02 12/12/17 00:00 Temperature 97.4 F L Pulse Rate 118 H 110 H 85 Respiratory Rate 20 Blood Pressure 109/56 L Pulse Oximetry 90 L 12/12/17 04:00 12/12/17 07:57 12/12/17 12:00 Temperature 97.4 F L 97.2 F L 97.9 F Pulse Rate 103 H 105 H 96 H Respiratory Rate 20 18 20 Blood Pressure 111/55 L 118/85 112/56 L Pulse Oximetry 96 96 96 12/12/17 18:05 Temperature Pulse Rate Respiratory Rate Blood Pressure Pulse Oximetry 96 Intake & Output 12/12/17 12/12/17 12/13/17 06:59 18:59 06:59 Intake Total 832.5 / 832.5 1322.5 / 1322.5 Output Total 300 / 300 500 / 500 Balance 532.5 / 532.5 822.5 / 822.5 Weight 0 g Intake: IV 712.5 / 712.5 962.5 / 962.5 NS Inj 1,000 ML @ 42 mls/hr IV. 600 / 600 CONT .[id number] [facility] Rx#:[id number] Maxipime Inj 1,000 MG In NS Inj 200 / 200 100 / 100 100 ML @ 200 mls/hr IV.SIG Q8H [facility] Rx#:[id number] Vancomycin Inj 1,250 MG In NS 262.5 / 262.5 262.5 / 262.5 Inj 250 ML @ 250 mls/hr IV.SIG Q12H [facility] Rx#:[id number] Oral 120 / 120 360 / 360 Output: Urine 300 / 300 500 / 500 Other: Date of Last Bowel Movement 12/11/17 # Bowel Movements 0 12/10/17 18:30 Blood - Peripheral Aerobic Blood Culture - Preliminary Streptococcus species 12/10/17 18:30 Blood - Peripheral Anaerobic Blood Culture - Preliminary Streptococcus species 12/10/17 18:30 Blood - Peripheral Aerobic Blood Culture - Preliminary Streptococcus species 12/10/17 18:30 Blood - Peripheral Anaerobic Blood Culture - Preliminary Streptococcus species 12/10/17 20:45 Clean Catch Urine Urine Culture - Final <10,000 cfu/mL gram positive edouard - no further workup Lab - Hematology Results 12/11/17 12/12/17 06:42 03:45 WBC 9.6 6.2 RBC 2.49 L 2.48 L Hgb 8.4 L 8.4 L Hct 25.1 L 25.0 L MCV 101.0 H 100.7 H MCH 33.8 34.0 MCHC 33.5 33.7 RDW 20.1 H 19.8 H Plt Count 112 L 116 L MPV 8.2 8.4 Prelim Diff (Auto) Slide review pending Neut % (Auto) 78.7 H Lymph % (Auto) 12.6 Drew % (Auto) 7.5 Eos % (Auto) 0.6 Baso % (Auto) 0.6 Neut # (Auto) 7.5 Lymph # (Auto) 1.2 Drew # (Auto) 0.7 Eos # (Auto) 0.1 Baso # (Auto) 0.1 WBC Differential Manual diff final Seg Neuts % (Manual) 68 Band Neuts % (Manual) 21 H Lymphocytes % (Manual) 3 L Monocytes % (Manual) 6 Eosinophils % (Manual) 1 Metamyelocytes % (Man) 1 Abs Neuts (Manual) 8.6 H Differential Comment . Toxic Granulation 2+ H Platelet Estimate Low L Platelet Morphology Normal Ovalocytes 1+ H Lab - Chemistry Results 12/10/17 12/11/17 12/11/17 18:30 06:42 06:42 Sodium 145 Potassium 3.3 L Chloride 102 Carbon Dioxide 34.0 H Anion Gap 9 BUN 34 H Creatinine 1.22 Estimated GFR 57 L Random Glucose 110 H Calcium 8.3 L Magnesium Total Bilirubin 1.5 H AST 19 ALT 14 Alkaline Phosphatase 65 Troponin I B-Natriuretic Peptide 395 H Total Protein 6.3 L Albumin 1.8 L TSH 1.600 Free T4 1.33 12/11/17 12/12/17 12/12/17 17:25 03:45 03:45 Sodium 143 Potassium 3.3 L Chloride 103 Carbon Dioxide 33.3 H Anion Gap 7 BUN 33 H Creatinine 1.16 Estimated GFR 61 L Random Glucose 99 Calcium 8.4 L Magnesium Total Bilirubin AST ALT Alkaline Phosphatase Troponin I 0.07 H B-Natriuretic Peptide 350 H Total Protein Albumin TSH Free T4 12/12/17 03:45 Sodium Potassium Chloride Carbon Dioxide Anion Gap BUN Creatinine Estimated GFR Random Glucose Calcium Magnesium 2.0 Total Bilirubin AST ALT Alkaline Phosphatase Troponin I B-Natriuretic Peptide Total Protein Albumin TSH Free T4 Imaging: ITS Impressions Head CT 12/10/17 17:48 CONCLUSION: 1. No acute intracranial hemorrhage. No mass effect or midline shift. 2. 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 3. Previously seen right frontal lobe hemorrhage has resolved. A small area of encephalomalacia has developed. 4. The previously seen small subarachnoid hemorrhage on the left has resolved. . Chest CT 12/12/17 00:00 CONCLUSION: 1. Mild basilar infiltrates and small effusions. 2. Cardiac enlargement. Chest X-Ray 12/12/17 06:05 CONCLUSION: No significant interval change Physical Exam: GENERAL: NAD obese SKIN: Warm and dry. NO rassh HEAD: Atraumatic. Normocephalic. EYES: Pupils equal and round. No scleral icterus. No injection or drainage. ENT: No nasal bleeding or discharge. Mucous membranes pink and moist. NECK: Trachea midline. No JVD. CARDIOVASCULAR: Regular rate and rhythm. NO murmurs RESPIRATORY: No accessory muscle use. Clear to auscultation. Breath sounds equal bilaterally. GASTROINTESTINAL: Abdomen soft, non-tender, nondistended. Hepatic and splenic margins not palpable. MUSCULOSKELETAL: Extremities without clubbing, cyanosis, or edema. No obvious deformities. NEUROLOGICAL: Awake and alert. Confused. Non focal PSYCHIATRIC: calm. cooperative Assessment and Plan - Plan HIgh grade 4/4 strep bacteremia, r/o endovascular infection -other source ? PNA 2D eco negative Abnormal CXR Abnormal UA - < 10 K CFU - unless clear source ID'd will consult cardiology for REBA - cont vancomycin - dc cefepime - further abx per clx sensitivity
[2017-12-12] MEDS: Pantoprazole Inj 40 MG Vial IV.PUSH SCH (21:24)
[2017-12-12] MEDS ORDERED: Pharmacy Ordered Lab Info OTHER SCH (22:45)
[2017-12-13] MEDS: Vancomycin Inj 1,250 MG in Sodium Chlor 0.9% Inj 250 ML IV.SIG SCH (00:35)
[2017-12-13] MEDS: Sod Chloride 0.9% Inj 1,000 ML IV.CONT SCH (00:36)
[2017-12-13 01:05] LABS: Vancomycin,Trough 29.3 mcg/mL (5.0-10.0)
[2017-12-13] MEDS: Pilocarpine HCl 5 MG Tablet PO SCH ×2 (08:24→21:30)
[2017-12-13] MEDS: dilTIAZem CD 180 MG Capsule PO SCH (08:24)
[2017-12-13] MEDS: levETIRAcetam 500 MG Tablet PO SCH ×2 (08:24→21:30)
[2017-12-13] MEDS: Metoprolol Tartrate 50 MG Tablet PO SCH ×2 (08:24→21:30)
[2017-12-13] MEDS: Lisinopril 10 MG Tablet PO SCH (08:24)
[2017-12-13] MEDS: Furosemide 40 MG Tablet PO SCH (08:24)
[2017-12-13] MEDS: Senna/Docusate Sodium 8.6/50 MG Tablet PO SCH ×2 (08:24→21:30)
--- NOTE | 2017-12-13 12:55 | P.PNIM ---
Subjective Interval history: Follow up bacteremia Patient reports feeling well today offers no new concerns/complaints Physical Exam Vital signs: Vital Signs 12/12/17 18:05 12/12/17 20:00 12/13/17 00:00 Temperature 97.2 F L 97.4 F L Pulse Rate 102 H 82 Respiratory Rate 20 18 Blood Pressure 111/70 111/59 L Pulse Oximetry 96 98 98 12/13/17 04:00 12/13/17 08:00 12/13/17 08:41 Temperature 97.2 F L 97.4 F L 96.1 F L Pulse Rate 91 H 105 H 116 H Respiratory Rate 18 22 20 Blood Pressure 132/66 128/63 128/60 Pulse Oximetry 97 97 96 12/13/17 09:00 12/13/17 09:35 12/13/17 12:00 Temperature 97.7 F Pulse Rate 93 H 91 H Respiratory Rate 18 Blood Pressure 111/59 L Pulse Oximetry 96 96 Intake & Output 12/12/17 12/13/17 12/13/17 18:59 06:59 18:59 Intake Total 1322.5 / 1322.5 760 / 760 Output Total 500 / 500 900 / 900 Balance 822.5 / 822.5 -140 / -140 Intake: IV 962.5 / 962.5 520 / 520 NS Inj 1,000 ML @ 42 mls/hr IV. 600 / 600 400 / 400 CONT .[id number] [facility] Rx#:[id number] Maxipime Inj 1,000 MG In NS Inj 100 / 100 100 / 100 100 ML @ 200 mls/hr IV.SIG Q8H [facility] Rx#:[id number] Vancomycin Inj 1,250 MG In NS 262.5 / 262.5 20 / 20 Inj 250 ML @ 250 mls/hr IV.SIG Q12H [facility] Rx#:[id number] Oral 360 / 360 240 / 240 Output: Urine 500 / 500 900 / 900 Other: Date of Last Bowel Movement 12/11/17 # Bowel Movements 0 Narrative: GENERAL: 81 year old male patient A&O SKIN: Warm and dry. small stage two ulceration left buttock 2-3cm HEAD: Normocephalic. EYES: No scleral icterus. No injection or drainage. CARDIOVASCULAR: Irregularly irregular RESPIRATORY: clear bilaterally GASTROINTESTINAL: Abdomen soft, non-tender, nondistended. MUSCULOSKELETAL: No cyanosis, or edema. BACK: Nontender without obvious deformity. No CVA tenderness. Results - Labs CBC & Chem 7: 12/14/17 03:46 12/14/17 03:46 Laboratory Results - last 24 hr 12/10/17 12/13/17 12/13/17 18:30 00:30 05:33 BUN 30 H Creatinine 1.00 Estimated GFR 72 L Vancomycin Trough 29.3 H MTS Gel Crossmatch See Detail Microbiology 12/10/17 18:30 Blood - Peripheral Aerobic Blood Culture - Final Viridans streptococcus [facility] 12/10/17 18:30 Blood - Peripheral Anaerobic Blood Culture - Final Viridans streptococcus [facility] 12/10/17 18:30 Blood - Peripheral Aerobic Blood Culture - Final Viridans streptococcus [facility] 12/10/17 18:30 Blood - Peripheral Anaerobic Blood Culture - Final Viridans streptococcus [facility] - Imaging Impressions Chest CT 12/12/17 00:00 CONCLUSION: 1. Mild basilar infiltrates and small effusions. 2. Cardiac enlargement. Assessment and Plan - Assessment (1) Bacteremia Code(s): R78.81 - Bacteremia Status: Acute Plan: 81-year-old white male who was in [facility] and over the last several days had decreased appetite with increasing weakness lab work showed an elevated WBC count in the low hemoglobin he was transferred to [place] emergency and family' s request. Hemoglobin in the emergency room was approximately 8 WBC count was approximately [address] and with a slight elevation in heart rate does meet criteria for sepsis protocol and will be admitted for further evaluation may need blood transfusion as well. Bacteremia Leukocytosis WBC on admission 13.6 -> 9.6 (12/11) The patient is meeting some sepsis protocol will start on IV vancomycin cefepime note has a questionable history of allergy to penicillin Gram positive cocci / bottles ?stiff neck suspicious for nuchal rigidity, consult IR for possible LP - patient and refuse LP will DC order CXR 12/12 reveals: Persistent mild bibasilar infiltrates and small effusions, left worse than right. Cardiac silhouette is unchanged. 12/12 CT chest: 1. Mild basilar infiltrates and small effusions. 2. Cardiac enlargement. Urine culture reveals: < 10,000 gram positive edouard Consult placed to ID Dr. Pang, appreciate input: following unclear source cardiology consulted for REBA, plan REBA on Saturday as patient has already eaten today ABX per ID (cefepime (12/10 - 12/13), Vancomycin (12/10 -12/14) ceftriaxone ( - present) Speech therapy swallow evaluation requested DC IVF PT seven days per week Anemia guaiac negative in ER Hemoglobin 8.1 in admission s/p 1 unit PRBCs 12/11 repeat hgb (12/11) 8.4 -> (12/12) 8.4 Subarachnoid hemorrhage In October patient last his footing at home and was found to have bilateral frontal subarachnoid hemorrhage admitted to the hospital neuro surgery was consult, and patient had repeated MRIs and CTs some improvement in the subarachnoid hemorrhages and the decision was made to transfer him to rehab facility. Of note his hemoglobin was low at approximately 7 and he did receive 2 units of blood was to undergo a GI workup but due to the subarachnoid hemorrhage that was put on hold. Patient was on Coumadin which has been DC'd due to his subarachnoid hemorrhage. Stable based on recent CT History of CHF (congestive heart failure) Chest x-ray still shows some small effusions - continue home Lasix 40 mg PO daily troponin level slightly elevated on admission 0.08, patient denies chest pain will repeat now to establish trend BNP 395 will continue home Lasix for now, recheck BNP in AM also A-fib Atrial fib is stable at present we will continue metoprolol diltiazem Hypokalemia potassium 3.3 replaced and started potassium 20 meq daily add on Mag recheck BMP in AM DVT prophylaxis with SCDs avoid chemical DVT prophylaxis due to recent Subarachnoid hemorrhage - Attending Attestation Patient examined. Assessment and plan formulated with Tahira YOUNG I agree with the above.
--- NOTE | 2017-12-13 13:11 | P.CONCA ---
History of Present Illness Service: Cardiology Consult date: 12/13/17 Reason for Consult: Endocarditis Primary Care Provider: Madhav Mcleod MD Chief Complaint: Increasing weakness over the last 3 days with elevated WBC count History of Present Illness: This is a 81-year-old male who initially presented to the emergency department back in December 10, 2017 with symptoms of generalized weakness. Patient was admitted after a fall and noted to have intracranial hemorrhage on prior admission. Patient was discharged in to go matter but over the last 3-4 days he has prior to his admission he had increasing weakness and decreased appetite. Patient was admitted. Echocardiogram revealed severely reduced left ventricular systolic function ejection fraction between 25 and 30%. Patient has had productive cough. On December 10, 2017 patient had 4 out of 4 Streptococcus species positive blood cultures. Infectious disease is requesting transesophageal echocardiogram to rule out endocarditis. [facility] - History History Provided By: Significant Other, Medical Record - Medical History Medical History: Medical History (Last Updated 12/12/17 @ 18:13 by YANG Ferrre) Stroke (Acute) Neck pain (Acute) Arthritis (Acute) Atrial fibrillation (Acute) CHF (congestive heart failure) (Acute) Anemia (Acute) - Surgical History Surgical History: Surgical History (Last Updated 12/12/17 @ 18:13 by YANG Ferrer) S/P CABG x 4 (Acute) History of appendectomy (Acute) - Family History Family History: Family History (Last Updated 12/12/17 @ 05:58 by Frances Pang MD) Other Family history unobtainable - Tobacco History Second Hand Smoke Exposure: No Tobacco Use In Past 30 Days: No Smoking Status: Former smoker Tobacco Type: Cigarettes - Alcohol History How Often Do You Have a Drink Containing Alcohol: Monthly or less - Substance Use History Substance History: No History of Abuse - Travel History Recent Travel in the [place] Within the Last 8 Weeks: No Recent Travel Out of the Country Within the Last 8 Weeks: No - Immunization History Tetanus Immunization: <5 Years Hx Influenza Vaccine This Season: No Medications and Allergies Active Medications: Active Medications Acetaminophen (Tylenol) 650 mg PO Q4H PRN PRN Reason: Temp > 100.4 Al Hydroxide/Mg Hydroxide (Milk Of Magnesia Liq) 30 ml PO Q12H PRN PRN Reason: Mild Constipation Atorvastatin Calcium (Lipitor) 80 mg PO DAILY [facility] Last Admin: 12/13/17 08:24 Dose: 80 mg Bisacodyl (Dulcolax Supp) 10 mg RECTAL DAILY PRN PRN Reason: SEVERE CONSITIPATION Diltiazem HCl (Cardizem Cd 24hr) 180 mg PO DAILY [facility] Last Admin: 12/13/17 08:24 Dose: 180 mg Furosemide (Lasix) 40 mg PO DAILY [facility] Last Admin: 12/13/17 08:24 Dose: 40 mg Sodium Chloride (Ns Inj) 1,000 mls @ 42 mls/hr IV.CONT .[id number] [facility] Last Admin: 12/13/17 00:36 Dose: 42 mls/hr Ceftriaxone Sodium 2,000 mg/ (Sodium Chloride) 100 mls @ 200 mls/hr IV.SIG Q24H [facility] Last Admin: 12/13/17 12:03 Dose: 200 mls/hr Lactulose (Lactulose Liq) 30 ml PO DAILY PRN PRN Reason: SEVERE CONSITIPATION Levetiracetam (Keppra) 500 mg PO BID [facility] Last Admin: 12/13/17 08:24 Dose: 500 mg Lisinopril (Prinivil) 10 mg PO DAILY [facility] Last Admin: 12/13/17 08:24 Dose: 10 mg Metoprolol Tartrate (Lopressor) 50 mg PO BID [facility] Last Admin: 12/13/17 08:24 Dose: 50 mg Miscellaneous Information ([facility] Ordered Lab Info) 1 each OTHER ONCE [facility] Last Admin: 12/13/17 00:35 Dose: 1 each Pantoprazole Sodium (Protonix Inj) 40 mg IV.PUSH Q24H [facility] Last Admin: 12/12/17 21:24 Dose: 40 mg Pilocarpine HCl (Salagen) 5 mg PO BID [facility] Last Admin: 12/13/17 08:24 Dose: 5 mg Potassium Chloride (K-Dur) 20 meq PO DAILY [facility] Last Admin: 12/13/17 08:24 Dose: 20 meq Senna/Docusate Sodium (Jackeline-Colace) 1 tab PO BID [facility] Last Admin: 12/13/17 08:24 Dose: 1 tab Sennosides (Senokot) 17.2 mg PO Q12H PRN PRN Reason: Moderate Constipation Allergies Allergy/AdvReac Type Severity Reaction Status Date / Time penicillin G Allergy Mild UNKNOWN Verified 12/10/17 17:44 Penicillins Allergy Nausea Verified 12/10/17 17:45 Home Medications Medication Instructions Recorded Confirmed Type atorvastatin 80 mg PO DAILY 11/19/17 12/10/17 History furosemide [Lasix] 40 mg PO DAILY 11/19/17 12/10/17 History lisinopril 10 mg PO DAILY 11/19/17 12/10/17 History metoprolol tartrate 50 mg PO BID 11/19/17 12/10/17 History pilocarpine HCl 5 mg PO BID 11/19/17 12/10/17 History Exam Vital signs: Vital Signs 12/12/17 18:05 12/12/17 20:00 12/13/17 00:00 Temperature 97.2 F L 97.4 F L Pulse Rate 102 H 82 Respiratory Rate 20 18 Blood Pressure 111/70 111/59 L Pulse Oximetry 96 98 98 12/13/17 04:00 12/13/17 08:00 12/13/17 08:41 Temperature 97.2 F L 97.4 F L 96.1 F L Pulse Rate 91 H 105 H 116 H Respiratory Rate 18 22 20 Blood Pressure 132/66 128/63 128/60 Pulse Oximetry 97 97 96 12/13/17 09:00 12/13/17 09:35 12/13/17 12:00 Temperature 97.7 F Pulse Rate 93 H 91 H Respiratory Rate 18 Blood Pressure 111/59 L Pulse Oximetry 96 96 Intake & Output 12/12/17 12/13/17 12/13/17 18:59 06:59 18:59 Intake Total 1322.5 / 1322.5 760 / 760 Output Total 500 / 500 900 / 900 Balance 822.5 / 822.5 -140 / -140 Intake: IV 962.5 / 962.5 520 / 520 NS Inj 1,000 ML @ 42 mls/hr IV. 600 / 600 400 / 400 CONT .[id number] [facility] Rx#:[id number] Maxipime Inj 1,000 MG In NS Inj 100 / 100 100 / 100 100 ML @ 200 mls/hr IV.SIG Q8H [facility] Rx#:[id number] Vancomycin Inj 1,250 MG In NS 262.5 / 262.5 20 / 20 Inj 250 ML @ 250 mls/hr IV.SIG Q12H [facility] Rx#:[id number] Oral 360 / 360 240 / 240 Output: Urine 500 / 500 900 / 900 Other: Date of Last Bowel Movement 12/11/17 # Bowel Movements 0 - Constitutional no acute distress - Routine HEENT Exam Head: Present: normocephalic Eye: Present: PERRL - Routine Neck Exam Absent: JVD - Routine Cardiovascular Exam Present: RRR. Absent: murmur - Routine Abdominal Exam Present: soft, normoactive bowel sounds - Routine Extremities Exam Absent: edema - Routine Neurological Exam Present: CN II-XII intact, sensory deficit, motor deficit Results 12/12/17 03:45 12/13/17 05:33 Comprehensive Metabolic Panel 12/13/17 12/13/17 Range/Units 00:30 05:33 BUN 30 H (7-18) mg/dL Creatinine 1.00 (0.60-1.30) mg/dL Intake and Output 12/12/17 12/13/17 12/13/17 22:59 06:59 14:59 Intake Total 1160 / 1160 660 / 660 Output Total 400 / 400 900 / 900 Balance 760 / 760 -240 / -240 Intake: IV 800 / 800 420 / 420 NS Inj 1,000 ML @ 42 mls/hr IV. 600 / 600 400 / 400 CONT .[id number] [facility] Rx#:[id number] Maxipime Inj 1,000 MG In NS Inj 200 / 200 100 ML @ 200 mls/hr IV.SIG Q8H [facility] Rx#:[id number] Vancomycin Inj 1,250 MG In NS 20 / 20 Inj 250 ML @ 250 mls/hr IV.SIG Q12H [facility] Rx#:[id number] Oral 360 / 360 240 / 240 Output: Urine 400 / 400 900 / 900 Other: # Bowel Movements 0 Assessment and Plan - Assessment (1) Bacteremia Code(s): R78.81 - Bacteremia Status: Acute - Plan Bacteremia 4/4 cultures positive back on December 10, 2017. Transthoracic echocardiogram reveals no obvious vegetation. Will plan for transesophageal echocardiogram. Patient ate breakfast this morning. Patient will be scheduled for transesophageal echocardiogram on Saturday morning. N.p.o. after midnight on Saturday.
[2017-12-13] MEDS: Pantoprazole Inj 40 MG Vial IV.PUSH SCH (21:32)
[2017-12-14 05:44] LABS: Baso # (Auto) 0.1 th/mm3 (0.0-0.2); Baso % (Auto) 0.9 % (0.0-2.0); Eos # (Auto) 0.1 th/mm3 (0.0-0.4); Eos % (Auto) 1.8 % (0.0-4.0); Hematocrit 26.5 % (39.0-51.0); Hemoglobin 8.8 gm/dL (13.0-17.0); Lymph # (Auto) 1.5 th/mm3 (1.0-4.8); Lymph % (Auto) 24.8 % (9.0-44.0); Mean Corpuscular HGB Conc 33.1 % (32.0-36.0); Mean Corpuscular Hemoglobin 33.8 pg (27.0-34.0); Mean Corpuscular Volume 102.2 fL (80.0-100.0); Mean Platelet Volume 8.5 fL (7.0-11.0); Mono # (Auto) 0.4 th/mm3 (0.0-0.9); Mono % (Auto) 7.3 % (0.0-8.0); Neut # (Auto) 3.8 th/mm3 (1.8-7.7); Neut % (Auto) 65.2 % (16.0-70.0); Platelet Count 107 th/mm3 (150-450); Red Cell Distribution Width 19.7 % (11.6-17.2); White Blood Count 5.9 th/mm3 (4.0-11.0)
[2017-12-14 06:15] LABS: Calcium 8.7 mg/dL (8.5-10.1); Carbon Dioxide 33.9 meq/L (21.0-32.0); Potassium 3.7 meq/L (3.5-5.1)
[2017-12-14 06:36] LABS: Ovalocytes 1+; Platelet Morphology Normal (Normal); Stomatocytes 1+
[2017-12-14] MEDS: dilTIAZem CD 180 MG Capsule PO SCH (09:53)
[2017-12-14] MEDS: levETIRAcetam 500 MG Tablet PO SCH ×2 (09:53→20:05)
[2017-12-14] MEDS: Senna/Docusate Sodium 8.6/50 MG Tablet PO SCH ×2 (09:53→20:05)
[2017-12-14] MEDS: Metoprolol Tartrate 50 MG Tablet PO SCH ×2 (09:53→20:05)
[2017-12-14] MEDS: Furosemide 40 MG Tablet PO SCH (09:53)
[2017-12-14] MEDS: Pilocarpine HCl 5 MG Tablet PO SCH ×2 (09:54→20:05)
[2017-12-14] MEDS: Lisinopril 10 MG Tablet PO SCH (09:54)
--- NOTE | 2017-12-14 13:18 | P.PNIM ---
Subjective Interval history: No new complaints. Physical Exam Vital signs: 12/14/17 11:10 12/14/17 12:00 Temperature 97.1 F L Pulse Rate 91 H 112 H Respiratory Rate 18 Blood Pressure 126/59 L Pulse Oximetry 96 98 Narrative: GENERAL: 81 year old male patient A&O SKIN: Warm and dry. small stage two ulceration left buttock 2-3cm HEAD: Normocephalic. EYES: No scleral icterus. No injection or drainage. CARDIOVASCULAR: Irregularly irregular RESPIRATORY: clear bilaterally GASTROINTESTINAL: Abdomen soft, non-tender, nondistended. MUSCULOSKELETAL: No cyanosis, or edema. BACK: Nontender without obvious deformity. No CVA tenderness. Results - Labs CBC & Chem 7: 12/19/17 03:24 12/19/17 03:24 12/13/17 11:20 Blood - Peripheral Aerobic Blood Culture - Preliminary No growth in 1 day 12/13/17 11:20 Blood - Peripheral Anaerobic Blood Culture - Preliminary No growth in 1 day 12/13/17 11:18 Blood - Peripheral Aerobic Blood Culture - Preliminary No growth in 1 day 12/13/17 11:18 Blood - Peripheral Anaerobic Blood Culture - Preliminary No growth in 1 day - Imaging GENERAL: This is a well-nourished, well-developed patient, in no apparent distress. CARDIOVASCULAR: Regular rate and rhythm without murmurs, gallops, or rubs. RESPIRATORY: Clear to auscultation. Breath sounds equal bilaterally. No wheezes , rales, or rhonchi. GASTROINTESTINAL: Abdomen soft, non-tender, nondistended. Normal active bowel sounds MUSCULOSKELETAL: Extremities without clubbing, cyanosis, or edema. NEURO: Alert & Oriented x4 to person, place, time, situation. Moves all ext x4 Assessment and Plan - Assessment (1) Bacteremia Code(s): R78.81 - Bacteremia Status: Acute Plan: 81-year-old white male who was in [place] and over the last several days had decreased appetite with increasing weakness lab work showed an elevated WBC count in the low hemoglobin he was transferred to [place] emergency and family' s request. Hemoglobin in the emergency room was approximately 8 WBC count was approximately 29186 and with a slight elevation in heart rate does meet criteria for sepsis protocol and will be admitted for further evaluation may need blood transfusion as well. Bacteremia Leukocytosis WBC on admission 13.6 -> 9.6 (12/11) The patient is meeting some sepsis protocol will start on IV vancomycin cefepime note has a questionable history of allergy to penicillin Gram positive cocci 4/4 bottles ?stiff neck suspicious for nuchal rigidity, consult IR for possible LP - patient and refuse LP will DC order CXR 12/12 reveals: Persistent mild bibasilar infiltrates and small effusions, left worse than right. Cardiac silhouette is unchanged. 12/12 CT chest: 1. Mild basilar infiltrates and small effusions. 2. Cardiac enlargement. Urine culture reveals: < 10,000 gram positive edouard Consult placed to ID Dr. Pang, appreciate input: following unclear source cardiology consulted for REBA, plan REBA on Saturday as patient has already eaten today - ABX per ID - (cefepime (12/10 - 12/13) - Vancomycin (12/10 -12/14) - ceftriaxone (12/13 - present) - ST: regular diet consistency, thin liquids - REBA on 12/16/[address] Willis - obtain MRI neck RE: acute/chronic neck pain. Evaluate for meningeal enhancement. Pt/family refused Lumbar Puncture at admission. - PT - SCDs for DVT Prophylaxis Anemia guaiac negative in ER Hemoglobin 8.1 in admission s/p 1 unit PRBCs 12/11 - (12/11) 8.4 (12/12) 8.4, (12/14) 8.8 Subarachnoid hemorrhage In October patient last his footing at home and was found to have bilateral frontal subarachnoid hemorrhage admitted to the hospital neuro surgery was consult, and patient had repeated MRIs and CTs some improvement in the subarachnoid hemorrhages and the decision was made to transfer him to rehab facility. Of note his hemoglobin was low at approximately 7 and he did receive 2 units of blood was to undergo a GI workup but due to the subarachnoid hemorrhage that was put on hold. Patient was on Coumadin which has been DC'd due to his subarachnoid hemorrhage. Stable based on recent CT History of CHF (congestive heart failure) Chest x-ray still shows some small effusions - continue home Lasix 40 mg PO daily troponin level slightly elevated on admission 0.08, patient denies chest pain will repeat now to establish trend BNP 395 will continue home Lasix for now A-fib Atrial fib is stable at present we will continue metoprolol diltiazem Hypokalemia - repleted DVT prophylaxis with SCDs avoid chemical DVT prophylaxis due to recent Subarachnoid hemorrhage
[2017-12-14] MEDS ORDERED: Gadobutrol PF 10 MMOL/10 ML Vial (for RAD) IV.SIG ONE (16:37)
--- NOTE | 2017-12-14 17:05 | MR ---
EXAM DATE: 12/14/2017 4:49 PM EDT AGE/SEX: 81 years / Male INDICATIONS: Pain. CLINICAL DATA: This is the patient's initial encounter. Patient reports that signs and symptoms have been present for 4 - 6 days and indicates a pain score of 3/10. MEDICAL/SURGICAL HISTORY: Arthritis. Cerebrovascular disease. Congestive heart failure. Anem ia. Afib. CABG. Appendectomy. COMPARISON: [facility] [place], CT CERVICAL SPINE W/O CONTRAST, 11/19/2017. . TECHNIQUE: Multiplanar, multisequence MRI examination of the cervical spine was performed without an d with 11cc ml Gadavist (gadobutrol) contrast as a single exam dose. FINDINGS: Vertebrae: Normal vertebral body height. Prominent hypertrophic and degenerative type changes at C1 to. No resulting central canal narrowing. Alignment: Normal. Cord: Normal configuration and signal. Post Fossa: The cerebellar tonsils are normal in position. Post Contrast: Nonspecific mild enhancement at the hypertrophic changes of C1-2. Nonspecific mild en hancement in the interspinous region of C5-6 posteriorly. C2-C3: Prominent left-sided facet arthrosis. Mild left neural foraminal narrowing. Central canal lazara meter within normal limits. C3-C4: Prominent right-sided facet arthrosis. Severe right neural foraminal narrowing. Mild left mandy ral foraminal narrowing. Central canal diameter within normal limits. C4-C5: Prominent left-sided facet arthrosis and broad-based disc osteophyte complex. Moderate to sev ere left neural foraminal narrowing. Central canal diameter is within normal limits. C5-C6: Right-sided broad-based disc osteophyte complex. Moderate severity central canal narrowing wi th effacement of the CSF anteriorly and posteriorly as well as deformity of the anterior margin of th e spinal cord on the right. Severe right neural foraminal narrowing. C6-C7: Broad-based disc osteophyte complex resulting in effacement of the CSF anteriorly and posteri ryan. No evidence of spinal cord deformity. Moderate severity left neural foraminal narrowing. C7-T1: Central canal diameter within normal limits. Neural foraminal diameters within normal limits. CONCLUSION: 1. Multilevel degenerative findings of the cervical spine as seen on prior CT of 11/19/2017. No signi ficant interval change. At C5-6 there is a broad-based disc osteophyte complex right greater than lef t resulting in moderate severity central canal narrowing with mild deformity of the spinal cord. No d efinite spinal cord signal abnormality identified. 2. Mild central canal stenosis at C6-7. Neural foraminal narrowing at multiple levels. Electronically signed by: Zach Wilson MD 12/14/2017 5:04 PM EDT
--- NOTE | 2017-12-14 17:59 | P.PNID ---
Subjective Remarks: afebrile no cough 2 D echo negative for vegg's, REBA on Mon CT mild b/b infiltrates BC vir strep 4/4 S Co neck pain Antibiotics: CFTX Allergies/Adverse Reactions: Allergies penicillin G Allergy (Mild, Verified 12/10/17 17:44) UNKNOWN Penicillins Allergy (Verified 12/10/17 17:45) Nausea Objective Vital Signs 12/13/17 20:00 12/14/17 00:00 12/14/17 04:00 Temperature 97.2 F L 97.2 F L 97.8 F Pulse Rate 100 H 97 H 90 Respiratory Rate 22 22 17 Blood Pressure 124/57 L 96/50 L 126/67 Pulse Oximetry 96 96 99 12/14/17 08:00 12/14/17 11:10 12/14/17 12:00 Temperature 98.3 F 97.1 F L Pulse Rate 100 H 91 H 112 H Respiratory Rate 18 18 Blood Pressure 122/55 L 126/59 L Pulse Oximetry 96 96 98 12/14/17 15:35 12/14/17 16:00 Temperature 98.1 F Pulse Rate 94 H Respiratory Rate 17 Blood Pressure 122/59 L Pulse Oximetry 96 95 Intake & Output 12/13/17 12/14/17 12/14/17 18:59 06:59 18:59 Intake Total 1300 / 1300 100 / 100 Output Total 400 / 400 Balance 900 / 900 100 / 100 Weight 0 g Intake: IV 500 / 500 100 / 100 NS Inj 1,000 ML @ 42 mls/hr IV. 400 / 400 CONT .[id number] [facility] Rx#:[id number] Rocephin Inj 2,000 MG In NS Inj 100 / 100 100 / 100 100 ML @ 200 mls/hr IV.SIG Q24H [facility] Rx#:[id number] Oral 800 / 800 Output: Urine 400 / 400 Other: Date of Last Bowel Movement 12/12/17 # Bowel Movements 1 12/13/17 11:20 Blood - Peripheral Aerobic Blood Culture - Preliminary No growth in 1 day 12/13/17 11:20 Blood - Peripheral Anaerobic Blood Culture - Preliminary No growth in 1 day 12/13/17 11:18 Blood - Peripheral Aerobic Blood Culture - Preliminary No growth in 1 day 12/13/17 11:18 Blood - Peripheral Anaerobic Blood Culture - Preliminary No growth in 1 day 09/11/18 18:30 Blood - Peripheral Aerobic Blood Culture - Final Viridans streptococcus [facility] 12/10/17 18:30 Blood - Peripheral Anaerobic Blood Culture - Final Viridans streptococcus [facility] 12/10/17 18:30 Blood - Peripheral Aerobic Blood Culture - Final Viridans streptococcus [facility] 12/10/17 18:30 Blood - Peripheral Anaerobic Blood Culture - Final Viridans streptococcus [facility] 12/10/17 20:45 Clean Catch Urine Urine Culture - Final <10,000 cfu/mL gram positive edouard - no further workup Lab - Hematology Results 12/14/17 03:46 WBC 5.9 RBC 2.60 L Hgb 8.8 L Hct 26.5 L MCV 102.2 H MCH 33.8 MCHC 33.1 RDW 19.7 H Plt Count 107 L MPV 8.5 Prelim Diff (Auto) Slide review pending Neut % (Auto) 65.2 Lymph % (Auto) 24.8 Hand % (Auto) 7.3 Eos % (Auto) 1.8 Baso % (Auto) 0.9 Neut # (Auto) 3.8 Lymph # (Auto) 1.5 Hand # (Auto) 0.4 Eos # (Auto) 0.1 Baso # (Auto) 0.1 WBC Differential . Diff Scan Auto diff confirmed Differential Comment . Platelet Estimate Low L Platelet Morphology Normal Ovalocytes 1+ H Stomatocytes 1+ H Lab - Chemistry Results 12/13/17 12/13/17 12/14/17 00:30 05:33 03:46 Sodium 145 Potassium 3.7 Chloride 105 Carbon Dioxide 33.9 H Anion Gap 6 BUN 30 H 25 H Creatinine 1.00 1.03 Estimated GFR 72 L 70 L Random Glucose 87 Calcium 8.7 Imaging: ITS Impressions Head CT 12/10/17 17:48 CONCLUSION: 1. No acute intracranial hemorrhage. No mass effect or midline shift. 2. 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 3. Previously seen right frontal lobe hemorrhage has resolved. A small area of encephalomalacia has developed. 4. The previously seen small subarachnoid hemorrhage on the left has resolved. . Chest CT 12/12/17 00:00 CONCLUSION: 1. Mild basilar infiltrates and small effusions. 2. Cardiac enlargement. Chest X-Ray 12/12/17 06:05 CONCLUSION: No significant interval change Cervical Spine MRI 09/15/18 00:00 CONCLUSION: 1. Multilevel degenerative findings of the cervical spine as seen on prior CT of 11/19/2017. No significant interval change. At C5-6 there is a broad-based disc osteophyte complex right greater than left resulting in moderate severity central canal narrowing with mild deformity of the spinal cord. No definite spinal cord signal abnormality identified. 2. Mild central canal stenosis at C6-7. Neural foraminal narrowing at multiple levels. Physical Exam: GENERAL: NAD obese SKIN: Warm and dry. NO rassh HEAD: Atraumatic. Normocephalic. EYES: Pupils equal and round. No scleral icterus. No injection or drainage. ENT: No nasal bleeding or discharge. Mucous membranes pink and moist. NECK: Trachea midline. CARDIOVASCULAR: Regular rate and rhythm. NO murmurs RESPIRATORY: No accessory muscle use. Clear to auscultation. Breath sounds equal bilaterally. GASTROINTESTINAL: Abdomen soft, non-tender, nondistended. Hepatic and splenic margins not palpable. MUSCULOSKELETAL: Extremities without clubbing, cyanosis, or edema. No obvious deformities. NEUROLOGICAL: Awake and alert. Oriented, appropriate Non focal PSYCHIATRIC: calm. cooperative Assessment and Plan - Plan HIgh grade 4/4 vir strep 4/4 S bacteremia, r/o endovascular infection -other source ? PNA 2D eco negative repeat BC neg Abnormal CXR Abnormal UA - < 10 K CFU Neck pain - MRI w/wo c - no infx, DJD - REBA - CFTX - dw family @ b/s Anticiapte IV abx, duration per REBA findings
[2017-12-14] MEDS: Pantoprazole Inj 40 MG Vial IV.PUSH SCH (21:56)
[2017-12-15] MEDS: Pilocarpine HCl 5 MG Tablet PO SCH ×2 (08:40→21:56)
[2017-12-15] MEDS: Metoprolol Tartrate 50 MG Tablet PO SCH ×2 (08:40→21:56)
[2017-12-15] MEDS: Lisinopril 10 MG Tablet PO SCH (08:40)
[2017-12-15] MEDS: Senna/Docusate Sodium 8.6/50 MG Tablet PO SCH ×2 (08:40→21:56)
[2017-12-15] MEDS: levETIRAcetam 500 MG Tablet PO SCH ×2 (08:40→21:56)
[2017-12-15] MEDS: Furosemide 40 MG Tablet PO SCH (08:40)
[2017-12-15] MEDS: dilTIAZem CD 180 MG Capsule PO SCH (08:40)
--- NOTE | 2017-12-15 13:06 | P.PNIM ---
Subjective Interval history: Follow up: Viridans streptococcus grp bacteremia, anemia and recent Subarachnoid hemorrhage Offers no new concerns/complaints Physical Exam Vital signs: Vital Signs 12/14/17 15:35 12/14/17 16:00 12/14/17 18:15 Temperature 98.1 F Pulse Rate 94 H Respiratory Rate 17 Blood Pressure 122/59 L Pulse Oximetry 96 95 95 12/14/17 20:00 12/14/17 21:04 12/15/17 00:00 Temperature 97.6 F Pulse Rate 87 90 88 Respiratory Rate 17 Blood Pressure 121/66 Pulse Oximetry 96 12/15/17 00:38 12/15/17 04:26 12/15/17 08:00 Temperature 98.9 F 97.2 F L 98.3 F Pulse Rate 90 89 102 H Respiratory Rate 18 18 17 Blood Pressure 100/55 L 122/58 L 112/53 L Pulse Oximetry 94 L 98 99 12/15/17 08:39 12/15/17 12:00 Temperature 98.2 F Pulse Rate 89 82 Respiratory Rate 17 Blood Pressure 122/54 L Pulse Oximetry 99 99 Intake & Output 12/14/17 12/15/17 12/15/17 18:59 06:59 18:59 Intake Total 640 / 640 680 / 680 100 / 100 Output Total 575 / 575 700 / 700 Balance 65 / 65 -20 / -20 100 / 100 Intake: IV 100 / 100 100 / 100 Rocephin Inj 2,000 MG In NS Inj 100 / 100 100 / 100 100 ML @ 200 mls/hr IV.SIG Q24H [facility] Rx#:[id number] Oral 540 / 540 680 / 680 Output: Urine 575 / 575 700 / 700 Other: Date of Last Bowel Movement 12/12/17 12/12/17 12/12/17 # Bowel Movements 0 Narrative: GENERAL: 81 year old male patient A&O SKIN: Warm and dry. small stage two ulceration left buttock 2-3cm HEAD: Normocephalic. EYES: No scleral icterus. No injection or drainage. CARDIOVASCULAR: Irregularly irregular RESPIRATORY: clear bilaterally GASTROINTESTINAL: Abdomen soft, non-tender, nondistended. MUSCULOSKELETAL: No cyanosis, or edema. BACK: Nontender without obvious deformity. No CVA tenderness. Results - Labs CBC & Chem 7: 12/19/17 03:24 12/19/17 03:24 Laboratory Results - last 24 hr 12/15/17 12/15/17 04:04 04:04 BUN 23 H Creatinine 1.09 Estimated GFR 65 L Microbiology 12/13/17 11:20 Blood - Peripheral Aerobic Blood Culture - Preliminary No growth in 2 days 12/13/17 11:20 Blood - Peripheral Anaerobic Blood Culture - Preliminary No growth in 2 days 12/13/17 11:18 Blood - Peripheral Aerobic Blood Culture - Preliminary No growth in 2 days 12/13/17 11:18 Blood - Peripheral Anaerobic Blood Culture - Preliminary No growth in 2 days - Imaging Impressions Cervical Spine MRI 12/14/17 00:00 CONCLUSION: 1. Multilevel degenerative findings of the cervical spine as seen on prior CT of 11/19/2017. No significant interval change. At C5-6 there is a broad-based disc osteophyte complex right greater than left resulting in moderate severity central canal narrowing with mild deformity of the spinal cord. No definite spinal cord signal abnormality identified. 2. Mild central canal stenosis at C6-7. Neural foraminal narrowing at multiple levels. Assessment and Plan - Assessment (1) Bacteremia Code(s): R78.81 - Bacteremia Status: Acute Plan: 81-year-old white male who was [place] [facility] [place] and over the last several days had decreased appetite with increasing weakness lab work showed an elevated WBC count in the low hemoglobin he was transferred to [facility] and family' s request. Hemoglobin in the emergency room was approximately 8 WBC count was approximately [address] and with a slight elevation in heart rate does meet criteria for sepsis protocol and will be admitted for further evaluation may need blood transfusion as well. Bacteremia Leukocytosis WBC on admission 13.6 -> 9.6 (12/11) The patient is meeting some sepsis protocol will start on IV vancomycin cefepime note has a questionable history of allergy to penicillin Gram positive cocci / bottles ?stiff neck suspicious for nuchal rigidity, consult IR for possible LP - patient and refuse LP will DC order CXR 12/12 reveals: Persistent mild bibasilar infiltrates and small effusions, left worse than right. Cardiac silhouette is unchanged. 12/12 CT chest: 1. Mild basilar infiltrates and small effusions. 2. Cardiac enlargement. Urine culture reveals: < 10,000 gram positive edouard Consult placed to ID Dr. Pang, appreciate input: following unclear source cardiology consulted for REBA, plan REBA on Saturday as patient has already eaten today - ABX per ID - (cefepime (12/10 - 12/13) - Vancomycin (12/10 -12/14) - ceftriaxone (12/13 - present) - ST: regular diet consistency, thin liquids. Patient with poor nutritional intake, encourage PO intake and add ensure - REBA on 12/16/[address] Willis, recheck CBC, BMP and Coags in AM - Cervical Spine MRI 12/14/17 1. Multilevel degenerative findings of the cervical spine as seen on prior CT of 11/19/2017. No significant interval change. At C5-6 there is a broad-based disc osteophyte complex right greater than left resulting in moderate severity central canal narrowing with mild deformity of the spinal cord. No definite spinal cord signal abnormality identified. 2. Mild central canal stenosis at C6-7. Neural foraminal narrowing at multiple levels. - PT - SCDs for DVT Prophylaxis Anemia guaiac negative in ER Hemoglobin 8.1 in admission s/p 1 unit PRBCs 12/11 - (12/11) 8.4 (12/12) 8.4, (12/14) 8.8 recheck CBC in AM Subarachnoid hemorrhage In October patient last his footing at home and was found to have bilateral frontal subarachnoid hemorrhage admitted to the hospital neuro surgery was consult, and patient had repeated MRIs and CTs some improvement in the subarachnoid hemorrhages and the decision was made to transfer him to rehab facility. Of note his hemoglobin was low at approximately 7 and he did receive 2 units of blood was to undergo a GI workup but due to the subarachnoid hemorrhage that was put on hold. Patient was on Coumadin which has been DC'd due to his subarachnoid hemorrhage. Stable based on recent CT History of CHF (congestive heart failure) Chest x-ray still shows some small effusions - continue home Lasix 40 mg PO daily troponin level slightly elevated on admission 0.08, patient denies chest pain will repeat now to establish trend BNP 395 will continue home Lasix for now A-fib Atrial fib is stable at present we will continue metoprolol diltiazem Hypokalemia - repleted - recheck 12/14 3.7 - recheck BMP in AM DVT prophylaxis with SCDs avoid chemical DVT prophylaxis due to recent Subarachnoid hemorrhage - Attending Attestation Patient examined. Assessment and plan formulated with Tahira Stackpole PA-C. I agree with the above.
[2017-12-15] MEDS: Pantoprazole Inj 40 MG Vial IV.PUSH SCH (21:56)
[2017-12-16 07:12] LABS: Activated Partial Thrombo Time 25.1 sec (24.3-30.1); INR 1.2 Ratio; Prothrombin Time 11.7 sec (9.8-11.6)
[2017-12-16 07:20] LABS: Baso # (Auto) 0.1 th/mm3 (0.0-0.2); Baso % (Auto) 1.1 % (0.0-2.0); Eos # (Auto) 0.1 th/mm3 (0.0-0.4); Eos % (Auto) 1.9 % (0.0-4.0); Hematocrit 24.3 % (39.0-51.0); Lymph # (Auto) 1.4 th/mm3 (1.0-4.8); Lymph % (Auto) 24.6 % (9.0-44.0); Mean Corpuscular Hemoglobin 33.8 pg (27.0-34.0); Mean Corpuscular Volume 102.4 fL (80.0-100.0); Mean Platelet Volume 8.5 fL (7.0-11.0); Mono # (Auto) 0.4 th/mm3 (0.0-0.9); Mono % (Auto) 7.7 % (0.0-8.0); Neut # (Auto) 3.6 th/mm3 (1.8-7.7); Neut % (Auto) 64.7 % (16.0-70.0); Platelet Count 95 th/mm3 (150-450); Red Blood Count 2.37 mil/mm3 (4.50-5.90); Red Cell Distribution Width 19.6 % (11.6-17.2); White Blood Count 5.5 th/mm3 (4.0-11.0)
[2017-12-16 07:28] LABS: Anion Gap 7 meq/L (5-15); Aspartate Aminotransferase 21 U/L (15-37); Blood Urea Nitrogen 20 mg/dL (7-18); Calcium 8.5 mg/dL (8.5-10.1); Carbon Dioxide 34.1 meq/L (21.0-32.0); Chloride 103 meq/L (98-107); Glomerular Filtration Rate 70 mL/min (>89); Glucose,Random 87 mg/dL (74-106); Potassium 3.9 meq/L (3.5-5.1); Sodium 144 meq/L (136-145)
[2017-12-16 07:53] LABS: % Iron Saturation 32.8 % (20-50); Alanine Aminotransferase 17 U/L (12-78); Alkaline Phosphatase 75 U/L (45-117); Ferritin 1124 ng/mL (26-388); Folate 10.1 ng/mL (3.1-17.5); Iron 67 mcg/dL (65-175); Total Iron Binding Capacity 204 mcg/dL (250-450); Total Protein 6.3 g/dL (6.4-8.2); Vitamin B12 739 pg/mL (193-986)
--- NOTE | 2017-12-16 08:13 | P.PNCA ---
Subjective Interval history: Patient complains of neck stiffness from arthritis, reports he is able to lie flat with no issues. He has no other complaints at this time. Physical Exam Vital signs: Vital Signs 12/15/17 08:39 12/15/17 12:00 12/15/17 16:00 Temperature 98.2 F 97.8 F Pulse Rate 89 82 84 Respiratory Rate 17 18 Blood Pressure 122/54 L 111/49 L Pulse Oximetry 99 99 100 12/15/17 17:58 12/15/17 20:00 12/16/17 00:35 Temperature 96.7 F L 97.1 F L Pulse Rate 86 83 Respiratory Rate 18 17 Blood Pressure 106/53 L 122/60 Pulse Oximetry 100 95 94 L 12/16/17 04:21 Temperature 97.2 F L Pulse Rate 84 Respiratory Rate 18 Blood Pressure 107/57 L Pulse Oximetry 97 Intake & Output 12/15/17 12/16/17 12/16/17 18:59 06:59 18:59 Intake Total 750 / 750 Output Total 200 / 200 700 / 700 Balance 550 / 550 -700 / -700 Intake: IV 100 / 100 Rocephin Inj 2,000 MG In NS Inj 100 / 100 100 ML @ 200 mls/hr IV.SIG Q24H [facility] Rx#:[id number] Oral 650 / 650 Output: Urine 200 / 200 700 / 700 Other: # Incontinent Voids 2 Date of Last Bowel Movement 12/12/17 # Bowel Movements 0 Narrative: GENERAL: Well-developed well-nourished. In no acute distress. NECK: No carotid bruits. No JVD. CARDIOVASCULAR: Regular rate and irregular rhythm. No murmur appreciated. RESPIRATORY: No accessory muscle use. Clear to auscultation. Breath sounds equal bilaterally. MUSCULOSKELETAL: No clubbing or cyanosis. No edema. NEUROLOGICAL: Awake and alert. Normal speech. Assessment and Plan - Assessment (1) Bacteremia Code(s): R78.81 - Bacteremia Status: Acute - Plan Bacteremia 4/4 cultures positive back on December 10, 2017. Transthoracic echocardiogram reveals no obvious vegetation. N.p.o. for plan for transesophageal echocardiogram today.
--- NOTE | 2017-12-16 08:22 | P.PNIM ---
Subjective Interval history: Follow up: Viridans streptococcus grp bacteremia, anemia and recent Subarachnoid hemorrhage Patient currently NPO for REBA later today, c/o dry mouth - offered oral swabs offers no other concerns/complaints at this time Physical Exam Vital signs: Vital Signs 12/15/17 08:39 12/15/17 12:00 12/15/17 16:00 Temperature 98.2 F 97.8 F Pulse Rate 89 82 84 Respiratory Rate 17 18 Blood Pressure 122/54 L 111/49 L Pulse Oximetry 99 99 100 12/15/17 17:58 12/15/17 20:00 12/16/17 00:35 Temperature 96.7 F L 97.1 F L Pulse Rate 86 83 Respiratory Rate 18 17 Blood Pressure 106/53 L 122/60 Pulse Oximetry 100 95 94 L 12/16/17 04:21 Temperature 97.2 F L Pulse Rate 84 Respiratory Rate 18 Blood Pressure 107/57 L Pulse Oximetry 97 Intake & Output 12/15/17 12/16/17 12/16/17 18:59 06:59 18:59 Intake Total 750 / 750 Output Total 200 / 200 700 / 700 Balance 550 / 550 -700 / -700 Intake: IV 100 / 100 Rocephin Inj 2,000 MG In NS Inj 100 / 100 100 ML @ 200 mls/hr IV.SIG Q24H [facility] Rx#:[id number] Oral 650 / 650 Output: Urine 200 / 200 700 / 700 Other: # Incontinent Voids 2 Date of Last Bowel Movement 12/12/17 # Bowel Movements 0 Narrative: GENERAL: 81 year old male patient A&O SKIN: Warm and dry. small stage two ulceration left buttock 2-3cm HEAD: Normocephalic. EYES: No scleral icterus. No injection or drainage. CARDIOVASCULAR: Irregularly irregular RESPIRATORY: clear bilaterally GASTROINTESTINAL: Abdomen soft, non-tender, nondistended. normoactive bowel sounds MUSCULOSKELETAL: No cyanosis, or edema. BACK: Nontender without obvious deformity. No CVA tenderness. Results - Labs CBC & Chem 7: 12/16/17 06:42 12/16/17 06:42 Laboratory Results - last 24 hr 12/11/17 12/16/17 12/16/17 17:25 06:42 06:42 WBC 5.5 RBC 2.37 L Hgb 8.0 L Hct 24.3 L MCV 102.4 H MCH 33.8 MCHC 33.0 RDW 19.6 H Plt Count 95 L MPV 8.5 Prelim Diff (Auto) Slide review pending Neut % (Auto) 64.7 Lymph % (Auto) 24.6 [place] % (Auto) 7.7 Eos % (Auto) 1.9 Baso % (Auto) 1.1 Neut # (Auto) 3.6 Lymph # (Auto) 1.4 [place] # (Auto) 0.4 Eos # (Auto) 0.1 Baso # (Auto) 0.1 Differential Comment . PT INR APTT Sodium 144 Potassium 3.9 Chloride 103 Carbon Dioxide 34.1 H Anion Gap 7 BUN 20 H Creatinine 1.03 Estimated GFR 70 L Random Glucose 87 Calcium 8.5 Iron 67 TIBC 204 L % Saturation 32.8 Ferritin 1124 H Total Bilirubin 0.6 AST 21 ALT 17 Alkaline Phosphatase 75 Total Protein 6.3 L Albumin 2.0 L Vitamin B12 739 Folate 10.1 IgG Total 1551 IgG1 801 IgG2 413 IgG3 140 IgG4 6.8 12/16/17 06:42 WBC RBC Hgb Hct MCV MCH MCHC RDW Plt Count MPV Prelim Diff (Auto) Neut % (Auto) Lymph % (Auto) [place] % (Auto) Eos % (Auto) Baso % (Auto) Neut # (Auto) Lymph # (Auto) [place] # (Auto) Eos # (Auto) Baso # (Auto) Differential Comment PT 11.7 H INR 1.2 APTT 25.1 Sodium Potassium Chloride Carbon Dioxide Anion Gap BUN Creatinine Estimated GFR Random Glucose Calcium Iron TIBC % Saturation Ferritin Total Bilirubin AST ALT Alkaline Phosphatase Total Protein Albumin Vitamin B12 Folate IgG Total IgG1 IgG2 IgG3 IgG4 Microbiology 12/13/17 11:20 Blood - Peripheral Aerobic Blood Culture - Preliminary No growth in 2 days 12/13/17 11:20 Blood - Peripheral Anaerobic Blood Culture - Preliminary No growth in 2 days 12/13/17 11:18 Blood - Peripheral Aerobic Blood Culture - Preliminary No growth in 2 days 12/13/17 11:18 Blood - Peripheral Anaerobic Blood Culture - Preliminary No growth in 2 days Assessment and Plan - Assessment (1) Bacteremia Code(s): R78.81 - Bacteremia Status: Acute Plan: 81-year-old white male who was in [facility] and over the last several days had decreased appetite with increasing weakness lab work showed an elevated WBC count in the low hemoglobin he was transferred to [place] emergency and family' s request. Hemoglobin in the emergency room was approximately 8 WBC count was approximately 19879 and with a slight elevation in heart rate does meet criteria for sepsis protocol and will be admitted for further evaluation may need blood transfusion as well. Bacteremia Leukocytosis WBC on admission 13.6 -> 9.6 (12/11) The patient is meeting some sepsis protocol will start on IV vancomycin cefepime note has a questionable history of allergy to penicillin Gram positive cocci / bottles ?stiff neck suspicious for nuchal rigidity, consult IR for possible LP - patient and refuse LP will DC order CXR 12/12 reveals: Persistent mild bibasilar infiltrates and small effusions, left worse than right. Cardiac silhouette is unchanged. 12/12 CT chest: 1. Mild basilar infiltrates and small effusions. 2. Cardiac enlargement. Urine culture reveals: < 10,000 gram positive edouard Consult placed to ID Dr. Pang, appreciate input: following unclear source cardiology consulted for REBA, plan REBA on Saturday 12/16 - ABX per ID - (cefepime (12/10 - 12/13) - Vancomycin (12/10 -12/14) - ceftriaxone (12/13 - present) - ST: regular diet consistency, thin liquids. Patient with poor nutritional intake, encourage PO intake and add ensure - REBA on 12/16/[address] Willis, recheck CBC, BMP and Coags in AM - Cervical Spine MRI 12/14/17 1. Multilevel degenerative findings of the cervical spine as seen on prior CT of 11/19/2017. No significant interval change. At C5-6 there is a broad-based disc osteophyte complex right greater than left resulting in moderate severity central canal narrowing with mild deformity of the spinal cord. No definite spinal cord signal abnormality identified. 2. Mild central canal stenosis at C6-7. Neural foraminal narrowing at multiple levels. - PT - SCDs for DVT Prophylaxis Anemia guaiac negative in ER Hemoglobin 8.1 in admission 1 unit PRBCs ordered 12/11, unclear if patient received this blood? - (12/11) 8.4 (12/12) 8.4, (12/14) 8.8, (12/16) 8.0 MCV 102.4 Iron 67 TIBC 204 %saturation 32.8 Ferritin 1124 B12 739 Folate 10.1 recheck CBC in AM Subarachnoid hemorrhage In October patient last his footing at home and was found to have bilateral frontal subarachnoid hemorrhage admitted to the hospital neuro surgery was consult, and patient had repeated MRIs and CTs some improvement in the subarachnoid hemorrhages and the decision was made to transfer him to rehab facility. Of note his hemoglobin was low at approximately 7 and he did receive 2 units of blood was to undergo a GI workup but due to the subarachnoid hemorrhage that was put on hold. Patient was on Coumadin which has been DC'd due to his subarachnoid hemorrhage. Stable based on recent CT History of CHF (congestive heart failure) Chest x-ray still shows some small effusions - continue home Lasix 40 mg PO daily troponin level slightly elevated on admission 0.08, patient denies chest pain will repeat now to establish trend BNP 395 will continue home Lasix for now A-fib Atrial fib is stable at present we will continue metoprolol diltiazem Hypokalemia - repleted - recheck 12/14 3.7 - recheck BMP in AM DVT prophylaxis with SCDs avoid chemical DVT prophylaxis due to recent Subarachnoid hemorrhage
[2017-12-16] MEDS ORDERED: Sodium Chlor 0.9% Inj 500 ML IV.CONT SCH (09:00)
[2017-12-16] MEDS: levETIRAcetam 500 MG Tablet PO SCH ×2 (09:04→20:49)
[2017-12-16] MEDS: dilTIAZem CD 180 MG Capsule PO SCH (09:04)
[2017-12-16] MEDS: Senna/Docusate Sodium 8.6/50 MG Tablet PO SCH ×2 (09:04→20:49)
[2017-12-16] MEDS: Furosemide 40 MG Tablet PO SCH (09:05)
[2017-12-16] MEDS: Lisinopril 10 MG Tablet PO SCH (09:05)
[2017-12-16] MEDS: Pilocarpine HCl 5 MG Tablet PO SCH ×2 (09:05→20:49)
[2017-12-16] MEDS: Metoprolol Tartrate 50 MG Tablet PO SCH ×2 (09:05→20:49)
[2017-12-16 09:42] LABS: Ovalocytes 1+; Platelet Morphology Normal (Normal)
[2017-12-16] MEDS ORDERED: Sodium Chlor 0.9% Inj 500 ML IV.CONT ONE (12:30)
[2017-12-16] MEDS ORDERED: Chlorhexidine Gluconate 2% 1 Pack (2 Cloths) TOPICAL ONE (12:30)
[2017-12-16] MEDS ORDERED: Metoprolol Tartrate 25 MG Tablet PO ONE (12:30)
[2017-12-16] MEDS ORDERED: Lidocaine PF 1% Inj 5 ML Syringe OTHER ONE (13:49)
[2017-12-16] MEDS ORDERED: Phenylephrine/NS 1000 MCG/10ML Syringe IV.PUSH ONE (14:00)
--- NOTE | 2017-12-16 14:54 | ECHRPT ---
Indication: sepsis endocarditis CONCLUSIONS Normal left ventricular size. Mild concentric left ventricular hypertrophy. The left ventricular systolic function is low normal with an estimated ejection fraction in the rang e of 50- 55%. The left atrial size is moderately dilated. Mild thickening of the mitral valve leaflets. Moderate mitral valve regurgitation. Mitral annular calcification is present. No mitral valve stenosis. No vegetations. Mild thickening of the tricuspid valve leaflets. There is mild tricuspid valve regurgitation. Normal estimated pulmonary pressures. Trileaflet aortic valve. Aortic valve sclerosis is present. No aortic valve regurgitation. No aortic valve stenosis. BP: / HR: Rhythm: Technical Quality: Medications Complications Proc. Components The patient was brought to the diagnostic imaging area in a fasting state after o btaining an informed consent. The patient was premedicated with IV Versed and IV Fentanyl. The green meat packer ior pharynx was sprayed with Cetacaine spray and the patient was administered viscous Xylocaine 2 %. The REBA probe was passed into the posterior pharynx , mid-esophagus, distal esophagus, and gastric fundus. REBA was performed at multiple levels. The patient tolerated the procedure well and there were no complications. The patient was transferred to the floor in satisfactory condition.. FINDINGS LEFT VENTRICLE Normal left ventricular size. Mild concentric left ventricular hypertrophy. The left ventricular systolic function is low normal with an estimated ejection fraction in the rang e of 50- 55%. RIGHT VENTRICLE Normal right ventricular size and systolic function. LEFT ATRIUM The left atrial size is moderately dilated. RIGHT ATRIUM The right atrial size is normal. ATRIAL APPENDAGES Normal left atrial appendage size with no evidence of thrombus formation. ATRIAL SEPTUM Normal atrial septal thickness without atrial level shunting by limited color doppler interrogation. AORTA The aortic root and proximal ascending aorta are not well visualized. The aortic root and proximal ascending aorta are normal in size on limited imaging. MITRAL VALVE Mild thickening of the mitral valve leaflets. Moderate mitral valve regurgitation. Mitral annular calcification is present. No mitral valve stenosis. No vegetation AORTIC VALVE Trileaflet aortic valve. Aortic valve sclerosis is present. No aortic valve regurgitation. No aortic valve stenosis. TRICUSPID VALVE Mild thickening of the tricuspid valve leaflets. There is mild tricuspid valve regurgitation. Normal estimated pulmonary pressures. No vegetation. VESSELS The inferior vena cava is normal in size. PULMONARY VALVE The pulmonary valve is not well visualized. PERICADIUM No pericardial effusion. Ja Willis MD, FACC (Electronically Signed) Final Date:16 December 2017 14:52
[2017-12-16] MEDS ORDERED: Sodium Chlor 0.9% Inj 250 ML IV.SIG SCH (18:00)
[2017-12-16] MEDS: Pantoprazole Inj 40 MG Vial IV.PUSH SCH (21:05)
[2017-12-16] MEDS ORDERED: Acetaminophen 500 MG Tablet PO ONE (22:00)
[2017-12-17] MEDS: levETIRAcetam 500 MG Tablet PO SCH ×2 (08:40→20:04)
[2017-12-17] MEDS: Pilocarpine HCl 5 MG Tablet PO SCH ×2 (08:40→20:03)
[2017-12-17] MEDS: Metoprolol Tartrate 50 MG Tablet PO SCH ×2 (08:41→20:04)
[2017-12-17] MEDS: Furosemide 40 MG Tablet PO SCH (08:41)
[2017-12-17] MEDS: Lisinopril 10 MG Tablet PO SCH (08:41)
[2017-12-17] MEDS: dilTIAZem CD 180 MG Capsule PO SCH (08:42)
[2017-12-17] MEDS: Senna/Docusate Sodium 8.6/50 MG Tablet PO SCH ×2 (08:42→20:03)
--- NOTE | 2017-12-17 08:42 | P.PNIM ---
Subjective Interval history: Follow up: Viridans streptococcus grp bacteremia, anemia and recent Subarachnoid hemorrhage Patient reports feeling a little better after receiving blood last night Physical Exam Vital signs: Vital Signs 12/16/17 09:00 12/16/17 16:00 12/16/17 18:13 Temperature 98.0 F Pulse Rate 87 90 Respiratory Rate 17 Blood Pressure 128/57 L Pulse Oximetry 94 L 94 L 12/16/17 20:00 12/16/17 21:00 12/16/17 23:19 Temperature 97.6 F 97.4 F L Pulse Rate 104 H 79 Respiratory Rate 18 18 Blood Pressure 134/67 121/57 L Pulse Oximetry 96 96 96 12/16/17 23:35 12/17/17 00:00 12/17/17 03:15 Temperature 97.3 F L 97.3 F L Pulse Rate 75 81 89 Respiratory Rate 18 18 Blood Pressure 115/61 135/66 Pulse Oximetry 97 98 12/17/17 04:00 12/17/17 07:48 Temperature 97.3 F L Pulse Rate 94 H 93 H Respiratory Rate 17 Blood Pressure 118/74 Pulse Oximetry 98 Intake & Output 12/16/17 12/17/17 12/17/17 18:59 06:59 18:59 Intake Total 580 / 580 960 / 960 Output Total 300 / 300 400 / 400 Balance 280 / 280 560 / 560 Intake: IV 100 / 100 550 / 550 NS Inj 500 ML @ 75 mls/hr IV. 500 / 500 CONT .Q6H40M [facility] Rx#:[id number] NS Inj 250 ML @ 15 mls/hr IV. 50 / 50 SIG ONCE [facility] Rx#:[id number] Rocephin Inj 2,000 MG In NS Inj 100 / 100 100 ML @ 200 mls/hr IV.SIG Q24H [facility] Rx#:[id number] Oral 480 / 480 360 / 360 Other 50 / 50 Rbc As-3 Leukoreduced Unit 50 / 50 [id number] Intake (Blood Product) Amt 0 / 0 Rbc As-3 Leukoreduced Unit 0 / 0 [id number] Output: Urine 300 / 300 400 / 400 Other: Date of Last Bowel Movement 12/12/17 Narrative: GENERAL: 81 year old male patient A&O SKIN: Warm and dry. HEAD: Normocephalic. EYES: No scleral icterus. No injection or drainage. CARDIOVASCULAR: Irregularly irregular RESPIRATORY: clear bilaterally GASTROINTESTINAL: Abdomen soft, non-tender, nondistended. normoactive bowel sounds MUSCULOSKELETAL: No cyanosis, or edema. BACK: Nontender without obvious deformity. No CVA tenderness. Results - Labs CBC & Chem 7: 12/16/17 06:42 12/16/17 06:42 Laboratory Results - last 24 hr 12/16/17 12/16/17 06:42 19:12 WBC Differential . Diff Scan Auto diff confirmed Platelet Estimate Low L Platelet Morphology Normal Ovalocytes 1+ H Blood Type A Positive Antibody Screen Negative MTS Gel Crossmatch See Detail Microbiology 12/13/17 11:20 Blood - Peripheral Aerobic Blood Culture - Preliminary No growth in 3 days 12/13/17 11:20 Blood - Peripheral Anaerobic Blood Culture - Preliminary No growth in 3 days 12/13/17 11:18 Blood - Peripheral Aerobic Blood Culture - Preliminary No growth in 3 days 12/13/17 11:18 Blood - Peripheral Anaerobic Blood Culture - Preliminary No growth in 3 days Assessment and Plan - Assessment (1) Bacteremia Code(s): R78.81 - Bacteremia Status: Acute Plan: 81-year-old white male who was in [facility] and over the last several days had decreased appetite with increasing weakness lab work showed an elevated WBC count in the low hemoglobin he was transferred to [place] emergency and family' s request. Hemoglobin in the emergency room was approximately 8 WBC count was approximately [address] and with a slight elevation in heart rate does meet criteria for sepsis protocol and will be admitted for further evaluation may need blood transfusion as well. Bacteremia Leukocytosis WBC on admission 13.6 -> 9.6 (12/11) The patient is meeting some sepsis protocol will start on IV vancomycin cefepime note has a questionable history of allergy to penicillin Gram positive cocci 4/4 bottles ?stiff neck suspicious for nuchal rigidity, consult IR for possible LP - patient and refuse LP will DC order CXR 12/12 reveals: Persistent mild bibasilar infiltrates and small effusions, left worse than right. Cardiac silhouette is unchanged. 12/12 CT chest: 1. Mild basilar infiltrates and small effusions. 2. Cardiac enlargement. Urine culture reveals: < 10,000 gram positive edouard Consult placed to ID Dr. Pang, appreciate input: following unclear source cardiology consulted for REBA, s/p REBA on Saturday 12/16 - ABX per ID - (cefepime (12/10 - 12/13) - Vancomycin (12/10 -12/14) - ceftriaxone (12/13 - present) - ST: regular diet consistency, thin liquids. Patient with poor nutritional intake, encourage PO intake and add ensure - REBA on 12/16/[address] Willis, revealed no vegetations - Cervical Spine MRI 12/14/17 1. Multilevel degenerative findings of the cervical spine as seen on prior CT of 11/19/2017. No significant interval change. At C5-6 there is a broad-based disc osteophyte complex right greater than left resulting in moderate severity central canal narrowing with mild deformity of the spinal cord. No definite spinal cord signal abnormality identified. 2. Mild central canal stenosis at C6-7. Neural foraminal narrowing at multiple levels. - await ABX recommendations per ID - PT - SCDs for DVT Prophylaxis Anemia guaiac negative in ER Hemoglobin 8.1 in admission 1 unit PRBCs ordered 12/11, unclear if patient received this blood? - (12/11) 8.4 (12/12) 8.4, (12/14) 8.8, (12/16) 8.0, (12/17) CBC pending MCV 102.4 Iron 67 TIBC 204 %saturation 32.8 Ferritin 1124 B12 739 Folate 10.1 In further review of outpatient records patient had been seen by Hematology/ oncology Dr. Martínez 11/13: for chronic macrocytic anemia. Plan was to check B12 Folate and iron studies if they were normal plan was to discuss bone marrow aspiration to look further into myelodysplastic syndrome Will give 1 unit PRBCs this evening consult Hematology/oncology Subarachnoid hemorrhage In October patient last his footing at home and was found to have bilateral frontal subarachnoid hemorrhage admitted to the hospital neuro surgery was consult, and patient had repeated MRIs and CTs some improvement in the subarachnoid hemorrhages and the decision was made to transfer him to rehab facility. Of note his hemoglobin was low at approximately 7 and he did receive 2 units of blood was to undergo a GI workup but due to the subarachnoid hemorrhage that was put on hold. Patient was on Coumadin which has been DC'd due to his subarachnoid hemorrhage. Stable based on recent CT History of CHF (congestive heart failure) Chest x-ray still shows some small effusions - continue home Lasix 40 mg PO daily troponin level slightly elevated on admission 0.08, patient denies chest pain will repeat now to establish trend BNP 395 will continue home Lasix for now A-fib Atrial fib is stable at present we will continue metoprolol diltiazem Hypokalemia - replete - recheck 12/14 3.7 - recheck BMP 12/17 pending DVT prophylaxis with SCDs avoid chemical DVT prophylaxis due to recent Subarachnoid hemorrhage
[2017-12-17 09:23] LABS: Baso # (Auto) 0.1 th/mm3 (0.0-0.2); Baso % (Auto) 1.1 % (0.0-2.0); Eos # (Auto) 0.1 th/mm3 (0.0-0.4); Eos % (Auto) 1.7 % (0.0-4.0); Hematocrit 28.5 % (39.0-51.0); Hemoglobin 9.6 gm/dL (13.0-17.0); Lymph # (Auto) 1.7 th/mm3 (1.0-4.8); Lymph % (Auto) 30.7 % (9.0-44.0); Mean Corpuscular HGB Conc 33.6 % (32.0-36.0); Mean Corpuscular Hemoglobin 32.9 pg (27.0-34.0); Mean Corpuscular Volume 97.7 fL (80.0-100.0); Mean Platelet Volume 8.4 fL (7.0-11.0); Mono # (Auto) 0.4 th/mm3 (0.0-0.9); Mono % (Auto) 7.7 % (0.0-8.0); Neut # (Auto) 3.3 th/mm3 (1.8-7.7); Neut % (Auto) 58.8 % (16.0-70.0); Platelet Count 92 th/mm3 (150-450); Red Blood Count 2.92 mil/mm3 (4.50-5.90); Red Cell Distribution Width 22.6 % (11.6-17.2); White Blood Count 5.6 th/mm3 (4.0-11.0)
[2017-12-17 10:06] LABS: Eosinophils 3 % (0-4); Lymphocytes 18 % (9-44); Metamyelocytes 1 % (0-1); Monocytes 8 % (0-8)
[2017-12-17 10:07] LABS: Ovalocytes 1+; Platelet Morphology Normal (Normal); Toxic Granulation 2+
--- NOTE | 2017-12-17 19:42 | P.PNID ---
Subjective Remarks: afebrile REBA negative repeat BC negative Antibiotics: CFTX Allergies/Adverse Reactions: Allergies penicillin G Allergy (Mild, Verified 12/10/17 17:44) UNKNOWN Penicillins Allergy (Verified 12/10/17 17:45) Nausea Objective Vital Signs 12/16/17 20:00 12/16/17 21:00 12/16/17 23:19 Temperature 97.6 F 97.4 F L Pulse Rate 104 H 79 Respiratory Rate 18 18 Blood Pressure 134/67 121/57 L Pulse Oximetry 96 96 96 12/16/17 23:35 12/17/17 00:00 12/17/17 03:15 Temperature 97.3 F L 97.3 F L Pulse Rate 75 81 89 Respiratory Rate 18 18 Blood Pressure 115/61 135/66 Pulse Oximetry 97 98 12/17/17 04:00 12/17/17 07:48 12/17/17 09:00 Temperature 97.3 F L Pulse Rate 94 H 93 H 92 H Respiratory Rate 17 Blood Pressure 118/74 Pulse Oximetry 98 12/17/17 10:19 12/17/17 11:45 12/17/17 16:00 Temperature 97.3 F L 97.3 F L Pulse Rate 80 85 Respiratory Rate 16 16 Blood Pressure 128/62 111/60 Pulse Oximetry 99 99 98 Intake & Output 12/17/17 12/17/17 12/18/17 06:59 18:59 06:59 Intake Total 960 / 960 1000 / 1000 100 / 100 Output Total 400 / 400 Balance 560 / 560 1000 / 1000 100 / 100 Intake: IV 550 / 550 100 / 100 NS Inj 500 ML @ 75 mls/hr IV. 500 / 500 CONT .Q6H40M [facility] Rx#:[id number] NS Inj 250 ML @ 15 mls/hr IV. 50 / 50 SIG ONCE [facility] Rx#:[id number] Rocephin Inj 2,000 MG In NS Inj 100 / 100 100 ML @ 200 mls/hr IV.SIG DAILY@1600 [facility] Rx#:[id number] Oral 360 / 360 1000 / 1000 Other 50 / 50 Rbc As-3 Leukoreduced Unit 50 / 50 [id number] Intake (Blood Product) Amt 0 / 0 Rbc As-3 Leukoreduced Unit 0 / 0 [id number] Output: Urine 400 / 400 Other: # Voids 6 Date of Last Bowel Movement 12/12/17 # Bowel Movements 0 12/13/17 11:20 Blood - Peripheral Aerobic Blood Culture - Preliminary No growth in 4 days 12/13/17 11:20 Blood - Peripheral Anaerobic Blood Culture - Preliminary No growth in 4 days 12/13/17 11:18 Blood - Peripheral Aerobic Blood Culture - Preliminary No growth in 4 days 12/13/17 11:18 Blood - Peripheral Anaerobic Blood Culture - Preliminary No growth in 4 days Lab - Hematology Results 12/16/17 12/17/17 06:42 08:45 WBC 5.5 5.6 RBC 2.37 L 2.92 L Hgb 8.0 L 9.6 L Hct 24.3 L 28.5 L MCV 102.4 H 97.7 D MCH 33.8 32.9 MCHC 33.0 33.6 RDW 19.6 H 22.6 H D Plt Count 95 L 92 L MPV 8.5 8.4 Prelim Diff (Auto) Slide review pending Slide review pending Neut % (Auto) 64.7 58.8 Lymph % (Auto) 24.6 30.7 Harney % (Auto) 7.7 7.7 Eos % (Auto) 1.9 1.7 Baso % (Auto) 1.1 1.1 Neut # (Auto) 3.6 3.3 Lymph # (Auto) 1.4 1.7 Harney # (Auto) 0.4 0.4 Eos # (Auto) 0.1 0.1 Baso # (Auto) 0.1 0.1 WBC Differential . Manual diff final Diff Scan Auto diff confirmed Seg Neuts % (Manual) 53 Band Neuts % (Manual) 17 H Lymphocytes % (Manual) 18 Monocytes % (Manual) 8 Eosinophils % (Manual) 3 Metamyelocytes % (Man) 1 Abs Neuts (Manual) 4.0 Differential Comment . . Toxic Granulation 2+ H Platelet Estimate Low L Low L Platelet Morphology Normal Normal Ovalocytes 1+ H 1+ H Lab - Chemistry Results 12/16/17 12/17/17 06:42 08:45 Sodium 144 Potassium 3.9 Chloride 103 Carbon Dioxide 34.1 H Anion Gap 7 BUN 20 H 21 H Creatinine 1.03 1.06 Estimated GFR 70 L 67 L Random Glucose 87 Calcium 8.5 Iron 67 TIBC 204 L % Saturation 32.8 Ferritin 1124 H Total Bilirubin 0.6 AST 21 ALT 17 Alkaline Phosphatase 75 Total Protein 6.3 L Albumin 2.0 L Vitamin B12 739 Folate 10.1 Imaging: ITS Impressions Head CT 12/10/17 17:48 CONCLUSION: 1. No acute intracranial hemorrhage. No mass effect or midline shift. 2. 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 3. Previously seen right frontal lobe hemorrhage has resolved. A small area of encephalomalacia has developed. 4. The previously seen small subarachnoid hemorrhage on the left has resolved. . Chest CT 12/12/17 00:00 CONCLUSION: 1. Mild basilar infiltrates and small effusions. 2. Cardiac enlargement. Chest X-Ray 12/12/17 06:05 CONCLUSION: No significant interval change Cervical Spine MRI 12/14/17 00:00 CONCLUSION: 1. Multilevel degenerative findings of the cervical spine as seen on prior CT of 11/19/2017. No significant interval change. At C5-6 there is a broad-based disc osteophyte complex right greater than left resulting in moderate severity central canal narrowing with mild deformity of the spinal cord. No definite spinal cord signal abnormality identified. 2. Mild central canal stenosis at C6-7. Neural foraminal narrowing at multiple levels. Physical Exam: GENERAL: NAD obese SKIN: Warm and dry. NO rassh HEAD: Atraumatic. Normocephalic. EYES: Pupils equal and round. No scleral icterus. No injection or drainage. ENT: No nasal bleeding or discharge. Mucous membranes pink and moist. NECK: Trachea midline. CARDIOVASCULAR: Regular rate and rhythm. NO murmurs RESPIRATORY: No accessory muscle use. Clear to auscultation. Breath sounds equal bilaterally. GASTROINTESTINAL: Abdomen soft, non-tender, nondistended. Hepatic and splenic margins not palpable. MUSCULOSKELETAL: Extremities without clubbing, cyanosis, or edema. No obvious deformities. NEUROLOGICAL: Awake and alert. Confused PSYCHIATRIC: calm. flat affect Assessment and Plan - Plan HIgh grade 4/4 vir strep 4/4 S bacteremia, r/o endovascular infection -other source ? PNA REBA negative repeat BC neg Abnormal CXR Abnormal UA - < 10 K CFU Neck pain - MRI w/wo c - no infx, DJD - complete CFTX 2 weeks from 1st neg BC - dw Dr Thao KELLEYT PICC
--- NOTE | 2017-12-17 19:43 | P.DCO ---
Post Hospital Infusion Therapy Location of Infusion Therapy: Home Health Care IV Infusion Order Patient Weight: 0 g - Diagnosis (1) Bacteremia Code(s): R78.81 - Bacteremia - Administer Medication Ceftriaxone Dose: 2 grams IV Directions: q 24 hours Start Treatment: 12/18/17 Stop Treatment: 12/26/17 - Additional Information Venous Access: PICC Line Additional Instructions: [x] Peripheral flush and dressing changes per protocol [x] Implanted port and central airline station agent: * Implanted port: 10 ml Normal Saline followed by 5 ml Heparin 100 units/ml Heparin flush after each use and monthly to maintain. [] May leave port accessed during therapy. [] May leave peripheral site accessed for duration of therapy. [x] If patient has SOB or respiratory distress, check oxygen saturation. If less than 90% or clinical signs of respiratory distress, administer oxygen at 2 L/min. via nasal cannula and notify physician. [x] Anaphylaxis/Reaction orders: * Stop infusion. * Keep IV line open with saline flush. * Notify physician. * Monitor vital signs every 15 minutes until symptoms resolve. * Check Oxygen saturation; Oxygen at 2 L/min. via nasal cannula if less than 90% or clinical signs of respiratory distress. * Administer diphenhydramine (Benadryl) 25 mg IV STAT, (unless patient has received as pre-med). May repeat once, if necessary. * Solu-Cortef 250 mg IVP over 30-60 seconds, use 100 mg vials for each dissolution. * Epinephrine (1mg/1 ml) 0.3 mg subcutaneously or IVP now with any signs of respiratory distress. * Check with physician for new additional pre-med orders if patient is re- challenged or re-treated. [x] May remove PICC line when treatment complete, after confirming with Physician. [x] If the patient is admitted to the hospital, the ED, or transferred via [facility] , complete transfer form including medication reconciliation order sheet. Weekly Labs: CBC w/diff, CMP Allergies penicillin G Allergy (Mild, Verified 12/10/17 17:44) UNKNOWN Penicillins Allergy (Verified 12/10/17 17:45) Nausea
[2017-12-17] MEDS: Pantoprazole Inj 40 MG Vial IV.PUSH SCH (21:41)
--- NOTE | 2017-12-18 01:48 | MB ---
cc: Binh Martínez MD DATE: 12/17/2017 REASON FOR CONSULTATION: Consult requested by Dr. Roche for evaluation and management of anemia and thrombocytopenia. HISTORY OF PRESENT ILLNESS: This is a 81-year-old male. He was referred to me last month for severe anemia. I have only seen him once on 11/13. I had ordered the workup for the anemia and gave him blood transfusion. The patient was supposed to come back for followup. However, he had a fall at home and he was brought in to the hospital. He was found to have intracranial hemorrhage as he was on Coumadin. Subsequently, the patient was discharged to [facility] for rehabilitation. The patient had a rapid decline. He lost his appetite and he was not eating. He is now readmitted to the hospital. He was found to have sepsis. He is on the antibiotics. ID is on the case. Due to the history of anemia, I have been asked to see him for further evaluation. The patient is complaining of extreme weakness, tiredness, fatigue. He denies any blood in the stool. PAST MEDICAL HISTORY: Congestive heart failure, CVA, coronary artery disease, status post SD. PAST SURGICAL HISTORY: Appendectomy. ALLERGIES: PENICILLIN. MEDICATIONS PRIOR TO COMING TO THE HOSPITAL: 1. Aspirin. 2. Atorvastatin. 3. Lasix. 4. Lortab. 5. Lisinopril. 6. Metoprolol. 7. Pilocarpine 8. Coumadin. FAMILY HISTORY: Significant for breast cancer. His sister from that. SOCIAL HISTORY: The patient is . He stopped smoking 30 years ago. He is a former drinker. PHYSICAL EXAMINATION: GENERAL: He is a well-developed, elderly, ill-appearing white male in no apparent distress. VITAL SIGNS: Temperature 97.3, heart rate is 85, blood pressure is 111/60. HEENT: PERRLA. EOMI, anicteric. No oral lesions noted. NECK: No lymphadenopathy noted. LUNGS: No wheezing, rhonchi or rales. CARDIOVASCULAR: Irregularly irregular. ABDOMEN: Soft, distended. EXTREMITIES: No pedal edema. NEUROLOGIC: Awake, alert, oriented x2. SKIN: Multiple bruises noted. ASSESSMENT: 1. Macrocytic anemia with normal B12 and folate. The differential diagnosis is underlying myelodysplasia versus drug effect. 2. Thrombocytopenia, most likely from Streptococcus viridans sepsis. PLAN: I have reviewed his available records. I have discussed with the patient regarding the blood test results from today. The white count is 5.6, hemoglobin is 9.6, platelet count is 92. MCV and MCH is normal. His hemoglobin was 8.0 yesterday and he received 2 units of blood transfusion and the hemoglobin has improved. The patient had a normal B12 yesterday at 739. Folic acid is 10.1, which is also normal. Ferritin is high at 1124. He does not have any B12 or folate or iron deficiency. He has persistent macrocytic anemia, which I suspect may be due to some underlying bone marrow pathology such as myelodysplasia. We discussed about bone marrow aspirate and biopsy to find out whether he has myelodysplasia. The patient does not want anymore tests. He specifically declined to have the bone marrow biopsy at this time. His is not present, but I will speak to them later regarding the decision for bone marrow biopsy now or later. At this point, I will continue to give him transfusion support. We will continue to monitor his progress while he is in the hospital. Thank you for asking my opinion. MD LEIGHTON Wayne/gregoria , 10:10 PM , 10:21 PM [id number]
[2017-12-18] MEDS: dilTIAZem CD 180 MG Capsule PO SCH (08:03)
[2017-12-18] MEDS: Furosemide 40 MG Tablet PO SCH (08:04)
[2017-12-18] MEDS: levETIRAcetam 500 MG Tablet PO SCH ×2 (08:04→21:02)
[2017-12-18] MEDS: Pilocarpine HCl 5 MG Tablet PO SCH ×2 (08:05→21:02)
[2017-12-18] MEDS: Lisinopril 10 MG Tablet PO SCH (08:05)
[2017-12-18] MEDS: Metoprolol Tartrate 50 MG Tablet PO SCH ×2 (08:05→21:03)
[2017-12-18] MEDS: Senna/Docusate Sodium 8.6/50 MG Tablet PO SCH ×2 (08:05→21:02)
--- NOTE | 2017-12-18 10:09 | P.PNPAL ---
Reason for Visit Reason for visit: a. To assist with evaluation and management of symptoms including: Weakness, decreased appetite b. To assist medical decision maker(s) with: better understanding of current medical conditions; weighing benefits/burdens of medical treatment options; making medical treatment decisions. Subjective Subjective/Interval History: Patient seen for follow-up weakness, decreased appetite management goals of medical treatment. He remains significantly weak evaluating rehab options. He is receiving physical therapy requiring moderate assist 2 for standing, gait and weightbearing. During his therapy he complained of being too tired continue and was then unable to stand. He has been evaluated by hematology persistent anemia and thrombocytopenia transfusion. Based on labs drawn in October at his prior evaluation. Patient this time is refusing bone marrow biopsy. He has difficulty holding his head he describes his weakness is moderate to severe, worsened by activity, not removed by rest. He continues to complain of poor appetite and has not had a bowel movement in 5 days states he is eating only a few bites of each tray, 15-20% of his meals. His is encouraging him to drink ensure shakes with moderate success. He has no appetite and the food tastes terrible. I have advised his she is able to provide him supplemental food from home. He describes his loss of appetite present for several weeks, moderately severe with no exacerbating or relieving factors at this time. Objective Vital Signs: Vital Signs 12/17/17 10:19 12/17/17 11:45 12/17/17 16:00 Temperature 97.3 F L 97.3 F L Pulse Rate 80 85 Respiratory Rate 16 16 Blood Pressure 128/62 111/60 Pulse Oximetry 99 99 98 12/17/17 20:00 12/18/17 00:00 12/18/17 00:52 Temperature 97.8 F 97.2 F L Pulse Rate 100 H 74 74 Respiratory Rate 18 18 Blood Pressure 136/64 120/56 L Pulse Oximetry 95 97 12/18/17 04:00 12/18/17 08:00 Temperature 97.6 F 97.6 F Pulse Rate 79 99 H Respiratory Rate 18 16 Blood Pressure 135/63 133/66 Pulse Oximetry 97 96 Intake & Output 12/17/17 12/18/17 12/18/17 18:59 06:59 18:59 Intake Total 1000 / 1000 580 / 580 Output Total 400 / 400 Balance 1000 / 1000 180 / 180 Weight 0 oz Intake: IV 100 / 100 Rocephin Inj 2,000 MG In NS Inj 100 / 100 100 ML @ 200 mls/hr IV.SIG DAILY@1600 [facility] Rx#:[id number] Oral 1000 / 1000 480 / 480 Output: Urine 400 / 400 Other: # Voids 6 Date of Last Bowel Movement 12/12/17 12/12/17 # Bowel Movements 0 Physical Exam: CONSTITUTIONAL/GENERAL: This is an adequately nourished patient, in no apparent distress. TUBES/LINES/DRAINS: Left AC PIV NECK: Trachea midline. Stiff, tender to palpation. No palpable thyroid enlargement or nodularity. CARDIOVASCULAR: Irregular rhythm, controlled rate with no rub murmur or gallop. RESPIRATORY/CHEST: Symmetric, unlabored respirations. Clear to auscultation. Breath sounds diminished. No wheezes, rales, or rhonchi. GASTROINTESTINAL: Abdomen soft, non-tender, nondistended. No hepato-splenomegaly , or palpable masses. No guarding. Bowel sounds present. GENITOURINARY: Without palpable bladder distension. Voiding MUSCULOSKELETAL: Extremities without clubbing, cyanosis, or edema. No joint tenderness or effusion noted. No calf tenderness. No mottling or clubbing. NEUROLOGICAL: Awake and alert. Motor and sensory grossly within normal limits. Follows commands. moves all extremities. PSYCHIATRIC: No obvious anxiety/depression. no apparent hallucinations or other psychotic thought process. . Diagnostic Tests Laboratory: Laboratory Results - last 72 hr 12/11/17 12/16/17 12/16/17 17:25 06:42 06:42 WBC 5.5 RBC 2.37 L Hgb 8.0 L Hct 24.3 L MCV 102.4 H MCH 33.8 MCHC 33.0 RDW 19.6 H Plt Count 95 L MPV 8.5 Prelim Diff (Auto) Slide review pending Neut % (Auto) 64.7 Lymph % (Auto) 24.6 [place] % (Auto) 7.7 Eos % (Auto) 1.9 Baso % (Auto) 1.1 Neut # (Auto) 3.6 Lymph # (Auto) 1.4 [place] # (Auto) 0.4 Eos # (Auto) 0.1 Baso # (Auto) 0.1 WBC Differential . Diff Scan Auto diff confirmed Seg Neuts % (Manual) Band Neuts % (Manual) Lymphocytes % (Manual) Monocytes % (Manual) Eosinophils % (Manual) Metamyelocytes % (Man) Abs Neuts (Manual) Differential Comment . Toxic Granulation Platelet Estimate Low L Platelet Morphology Normal Ovalocytes 1+ H PT INR APTT Sodium 144 Potassium 3.9 Chloride 103 Carbon Dioxide 34.1 H Anion Gap 7 BUN 20 H Creatinine 1.03 Estimated GFR 70 L Random Glucose 87 Calcium 8.5 Iron 67 TIBC 204 L % Saturation 32.8 Ferritin 1124 H Total Bilirubin 0.6 AST 21 ALT 17 Alkaline Phosphatase 75 Total Protein 6.3 L Albumin 2.0 L Vitamin B12 739 Folate 10.1 IgG Total 1551 IgG1 801 IgG2 413 IgG3 140 IgG4 6.8 Blood Type Antibody Screen MTS Gel Crossmatch 12/16/17 12/16/17 12/17/17 06:42 19:12 08:45 WBC RBC Hgb Hct MCV MCH MCHC RDW Plt Count MPV Prelim Diff (Auto) Neut % (Auto) Lymph % (Auto) [place] % (Auto) Eos % (Auto) Baso % (Auto) Neut # (Auto) Lymph # (Auto) [place] # (Auto) Eos # (Auto) Baso # (Auto) WBC Differential Diff Scan Seg Neuts % (Manual) Band Neuts % (Manual) Lymphocytes % (Manual) Monocytes % (Manual) Eosinophils % (Manual) Metamyelocytes % (Man) Abs Neuts (Manual) Differential Comment Toxic Granulation Platelet Estimate Platelet Morphology Ovalocytes PT 11.7 H INR 1.2 APTT 25.1 Sodium Potassium Chloride Carbon Dioxide Anion Gap BUN 21 H Creatinine 1.06 Estimated GFR 67 L Random Glucose Calcium Iron TIBC % Saturation Ferritin Total Bilirubin AST ALT Alkaline Phosphatase Total Protein Albumin Vitamin B12 Folate IgG Total IgG1 IgG2 IgG3 IgG4 Blood Type A Positive Antibody Screen Negative MTS Gel Crossmatch See Detail 12/17/17 12/18/17 08:45 06:15 WBC 5.6 RBC 2.92 L Hgb 9.6 L Hct 28.5 L MCV 97.7 D MCH 32.9 MCHC 33.6 RDW 22.6 H D Plt Count 92 L MPV 8.4 Prelim Diff (Auto) Slide review pending Neut % (Auto) 58.8 Lymph % (Auto) 30.7 [place] % (Auto) 7.7 Eos % (Auto) 1.7 Baso % (Auto) 1.1 Neut # (Auto) 3.3 Lymph # (Auto) 1.7 [place] # (Auto) 0.4 Eos # (Auto) 0.1 Baso # (Auto) 0.1 WBC Differential Manual diff final Diff Scan Seg Neuts % (Manual) 53 Band Neuts % (Manual) 17 H Lymphocytes % (Manual) 18 Monocytes % (Manual) 8 Eosinophils % (Manual) 3 Metamyelocytes % (Man) 1 Abs Neuts (Manual) 4.0 Differential Comment . Toxic Granulation 2+ H Platelet Estimate Low L Platelet Morphology Normal Ovalocytes 1+ H PT INR APTT Sodium Potassium Chloride Carbon Dioxide Anion Gap BUN 21 H Creatinine 1.07 Estimated GFR 67 L Random Glucose Calcium Iron TIBC % Saturation Ferritin Total Bilirubin AST ALT Alkaline Phosphatase Total Protein Albumin Vitamin B12 Folate IgG Total IgG1 IgG2 IgG3 IgG4 Blood Type Antibody Screen MTS Gel Crossmatch Result Diagrams: 12/17/17 08:45 12/18/17 06:15 Microbiology: Microbiology 12/13/17 11:20 Aerobic Blood Culture - Preliminary Blood - Peripheral No growth in 4 days Anaerobic Blood Culture - Preliminary No growth in 4 days 12/13/17 11:18 Aerobic Blood Culture - Preliminary Blood - Peripheral No growth in 4 days Anaerobic Blood Culture - Preliminary No growth in 4 days Imaging: Chest X-Ray 12/10/17 17:48 CONCLUSION: Left greater than the right bibasilar atelectasis and small effusions. Mild compensated cardiomegaly, stable. Head CT 12/10/17 17:48 CONCLUSION: 1. No acute intracranial hemorrhage. No mass effect or midline shift. 2. 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 3. Previously seen right frontal lobe hemorrhage has resolved. A small area of encephalomalacia has developed. 4. The previously seen small subarachnoid hemorrhage on the left has resolved. . Chest CT 12/12/17 00:00 CONCLUSION: 1. Mild basilar infiltrates and small effusions. 2. Cardiac enlargement. Chest X-Ray 12/12/17 06:05 CONCLUSION: No significant interval change Cervical Spine MRI 12/14/17 00:00 CONCLUSION: 1. Multilevel degenerative findings of the cervical spine as seen on prior CT of 11/19/2017. No significant interval change. At C5-6 there is a broad-based disc osteophyte complex right greater than left resulting in moderate severity central canal narrowing with mild deformity of the spinal cord. No definite spinal cord signal abnormality identified. 2. Mild central canal stenosis at C6-7. Neural foraminal narrowing at multiple levels. Assessment and Plan Pertinent Non-Medical Issues: Psychosocial: He was born in [facility] and moved to [place] briefly before moving to [place] as a young child. He was not in the service. He and his have 4 children, 2 boys and 2 girls. Girls live locally, one son lives in [place] and one son in [facility]. His goal is to complete rehab and go home. Spiritual: They are being followed by their [facility] carver from their home latter day. [employer] adalberto. Legal: Living well at home. Requested copy be brought in. Ethical issues impacting care: None noted. . Important Contacts: : Marci Magdaleno , . Prognosis: His prognosis is guarded. He has significant cardiac disease including history of CABG, FL, atrial fibrillation, cardiomegaly, systolic heart failure with EF 25-30% and mild pulmonary hypertension. He has had at least 2 previous strokes and recently suffered a fall and intracranial bleed. His appetite is very poor and he suffers from weakness. He does have a baseline anemia that is in process of being evaluated by Dr. Martínez with no established etiology. This is his second hospitalization within a month and he was admitted with high grade Streptococcus. He has been experiencing a progressive decline recently and is at risk for continued complications, decline and hospitalizations. . Code Status: No Code DNR Plan: PLAN: Legal decision maker: At this time the patient appears capacitated for decision-making but due to generalized weakness, would recommend shared decision making with his is participating in all of his healthcare decisions. Per [place] statutes she would be the proxy decision-maker if he were to be determined to be not capacitated Goals: Aggressive short of no code CODE STATUS: DO NOT RESUSCITATE SYMPTOMS: * Weakness: Likely multifactorial to include infection, systolic heart failure, anemia, recent fall with intracranial hemorrhage, previous CVA and recurrent hospitalizations. He has generalized weakness and recently spent a couple weeks at [facility] in rehabilitation. He will likely require further therapy. PT is following. No further recommendations. * Decreased appetite: Uncertain etiology. Total protein is decreased at 6.3 as well as albumin at 1.8. He may benefit from a nutrition consult to maximize his recovery. Palliative care will continue to follow the patient during hospital course as condition evolves, to assist patient/decision-maker with understanding of their medical conditions, weighing benefits/burdens of treatment options, for clarification of goals of treatment. Additionally will assist with any symptoms of palliative concern. .
--- NOTE | 2017-12-18 11:09 | P.PNIM ---
Subjective Interval history: Pt is sitting up in the chair, complains of neck pain Reports poor appetite Physical Exam Vital signs: Vital Signs 12/17/17 11:45 12/17/17 16:00 12/17/17 20:00 Temperature 97.3 F L 97.3 F L 97.8 F Pulse Rate 80 85 100 H Respiratory Rate 16 16 18 Blood Pressure 128/62 111/60 136/64 Pulse Oximetry 99 98 95 12/18/17 00:00 12/18/17 00:52 12/18/17 04:00 Temperature 97.2 F L 97.6 F Pulse Rate 74 74 79 Respiratory Rate 18 18 Blood Pressure 120/56 L 135/63 Pulse Oximetry 97 97 12/18/17 08:00 Temperature 97.6 F Pulse Rate 99 H Respiratory Rate 16 Blood Pressure 133/66 Pulse Oximetry 96 Intake & Output 12/17/17 12/18/17 12/18/17 18:59 06:59 18:59 Intake Total 1000 / 1000 580 / 580 Output Total 400 / 400 Balance 1000 / 1000 180 / 180 Weight 0 g Intake: IV 100 / 100 Rocephin Inj 2,000 MG In NS Inj 100 / 100 100 ML @ 200 mls/hr IV.SIG DAILY@1600 [facility] Rx#:[id number] Oral 1000 / 1000 480 / 480 Output: Urine 400 / 400 Other: # Voids 6 Date of Last Bowel Movement 12/12/17 12/12/17 # Bowel Movements 0 Narrative: GENERAL: 81 year old male patient A&O CARDIO: Irregularly irregular RESP: clear bilaterally ABD: +BS, soft, non-tender, nondistended. EXT: No cyanosis, or edema. Results - Labs CBC & Chem 7: 12/17/17 08:45 12/18/17 06:15 Laboratory Results - last 24 hr 12/18/17 06:15 BUN 21 H Creatinine 1.07 Estimated GFR 67 L Microbiology 12/13/17 11:20 Blood - Peripheral Aerobic Blood Culture - Preliminary No growth in 4 days 12/13/17 11:20 Blood - Peripheral Anaerobic Blood Culture - Preliminary No growth in 4 days 12/13/17 11:18 Blood - Peripheral Aerobic Blood Culture - Preliminary No growth in 4 days 12/13/17 11:18 Blood - Peripheral Anaerobic Blood Culture - Preliminary No growth in 4 days - Imaging Chest X-Ray 12/10/17 17:48 CONCLUSION: Left greater than the right bibasilar atelectasis and small effusions. Mild compensated cardiomegaly, stable. Head CT 12/10/17 17:48 CONCLUSION: 1. No acute intracranial hemorrhage. No mass effect or midline shift. 2. 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 3. Previously seen right frontal lobe hemorrhage has resolved. A small area of encephalomalacia has developed. 4. The previously seen small subarachnoid hemorrhage on the left has resolved. Chest CT 12/12/17 00:00 CONCLUSION: 1. Mild basilar infiltrates and small effusions. 2. Cardiac enlargement. Chest X-Ray 12/12/17 06:05 CONCLUSION: No significant interval change Cervical Spine MRI 12/14/17 00:00 CONCLUSION: 1. Multilevel degenerative findings of the cervical spine as seen on prior CT of 11/19/2017. No significant interval change. At C5-6 there is a broad-based disc osteophyte complex right greater than left resulting in moderate severity central canal narrowing with mild deformity of the spinal cord. No definite spinal cord signal abnormality identified. 2. Mild central canal stenosis at C6-7. Neural foraminal narrowing at multiple levels. Assessment and Plan - Assessment (1) Bacteremia Code(s): R78.81 - Bacteremia Status: Acute Plan: 81-year-old white male who was in [facility] and over the last several days had decreased appetite with increasing weakness lab work showed an elevated WBC count in the low hemoglobin he was transferred to [facility] and family' s request. Hemoglobin in the emergency room was approximately 8 WBC count was approximately 19069 and with a slight elevation in heart rate does meet criteria for sepsis protocol and will be admitted for further evaluation may need blood transfusion as well. Bacteremia Leukocytosis - Pts WBC on admission 13.6 -> 9.6 (12/11) - The patient was started on IV vancomycin, cefepime note has a questionable history of allergy to penicillin - Blood cultures (12/10/17) grew out Strep Viridans in 4/4 bottles - Pt complained of stiff neck, suspicious for nuchal rigidity, IR was consulted for possible LP - patient and refused LP - CXR 12/12 --> Persistent mild bibasilar infiltrates and small effusions, left worse than right. Cardiac silhouette is unchanged. - CT chest (12/12/17): 1. Mild basilar infiltrates and small effusions. 2. Cardiac enlargement. - Urine culture reveals: < 10,000 gram positive edouard - Consult placed to ID Dr. Pang, appreciate input: following unclear source cardiology consulted for REBA - REBA on 12/16/[address] Willis, revealed no vegetations - ABX per ID - (cefepime (12/10 - 12/13) - Vancomycin (12/10 -12/14) - ceftriaxone (12/13 - present) - ST: regular diet consistency, thin liquids. Patient with poor nutritional intake, encourage PO intake and add ensure - Cervical Spine MRI 12/14/17 1. Multilevel degenerative findings of the cervical spine as seen on prior CT of 11/19/2017. No significant interval change. At C5-6 there is a broad-based disc osteophyte complex right greater than left resulting in moderate severity central canal narrowing with mild deformity of the spinal cord. No definite spinal cord signal abnormality identified. 2. Mild central canal stenosis at C6-7. Neural foraminal narrowing at multiple levels. - ABX recommendations per ID: - Ceftriaxone 2 grams IV q 24 hours, from 12/18/17-12/26/17 - PT - SCDs for DVT Prophylaxis Anemia - Pt was guaiac negative in ER - Hemoglobin 8.1 in admission - Pt was given 1 unit PRBCs ordered 12/11, unclear if patient received this blood ? - Labs --> Hgb 8.4 (12/11) --> 8.4 (12/12) --> 8.8 (12/14) --> 8.0 (12/16) --> Pt received one units PRBCs on 12/16 --> Hgb 9.6 (12/17) - MCV 102.4, Iron 67, TIBC 204, %saturation 32.8, Ferritin 1124, B12 739, Folate 10.1 - In further review of outpatient records patient had been seen by Hematology/ oncology Dr. Martínez 11/13: for chronic macrocytic anemia. - Appreciate consult from Heme/Onc who recommended bone marrow aspiration to look further into myelodysplastic syndrome. Initially pt refused but in discussion with him today he reports that he just didn't understand what the BM biopsy was for and is now agreeable to it but wants to speak with Dr. Martínez again today Subarachnoid hemorrhage - In October patient last his footing at home and was found to have bilateral frontal subarachnoid hemorrhage admitted to the hospital neuro surgery was consult, and patient had repeated MRIs and CTs some improvement in the subarachnoid hemorrhages and the decision was made to transfer him to rehab facility. Of note his hemoglobin was low at approximately 7 and he did receive 2 units of blood was to undergo a GI workup but due to the subarachnoid hemorrhage that was put on hold. - Patient was on Coumadin which has been DC'd due to his subarachnoid hemorrhage. - Stable based on recent CT History of CHF (congestive heart failure) - Chest x-ray still shows some small effusions - continue home Lasix 40 mg PO daily - Troponin level slightly elevated on admission 0.08, patient denies chest pain will repeat now to establish trend - BNP 395 will continue home Lasix for now A-fib - Stable at present we will continue metoprolol, diltiazem Hypokalemia - replete - recheck 12/14 3.7 DVT prophylaxis with SCDs avoid chemical DVT prophylaxis due to recent Subarachnoid hemorrhage
--- NOTE | 2017-12-18 18:01 | P.DIET ---
Nutritional Evaluation Type of nutrition evaluation: follow-up Nutrition screening: [facility] [place] (Poor [place] Intake, low albumin) Screening comments: 12/11 [facility] Poor PO Intake-Low Albumin Subjective Barriers to Nutrition: C/O taste of food Subjective Comments: Pt visited for food preferences. Pt reports he is drinking the Ensure Enlive. Pt is receptive to receiving yogurt BID. Pt says he has no appetite and his mouth is dry and food doesnt taste good. Objective - Diagnosis Anemia, Sepsis unkown etiolgy, failure to thrive - Objective % IBW: 123 (IBW = 202#) Body Weight Used for Calculations: Actual (113.4 kg) Energy Needs - Lower Range (kCal/kg): 25 Energy Needs - Upper Range (kCal/kg): 30 Lower Limit kCal/kg (kCals): 2,835 Upper Limit kCal/kg (kCals): 3,402 Lower Limit Protein Factor (Grams per Kg): 1.0 Upper Limit Protein Factor (Grams per Kg): 1.5 Lower Protein Needs (Protein): 113 Upper Protein Needs (Protein): 170 Dietitian Reviewed in Medical Record: Current diet, Curent medications, Intake & Output, Labs, Medical history Diet Order: Heart Healthy Objective Comments: PMH: Anemia, Arthritis, AFib, Cardiomegaly, systolic heart failure, EF 25-30%, previous strokes x 2, s/p CABG x 4 Meds Include: Lipitor, Cardizem, Lasix, Lactulose, Keppra, Lopressor, Lisinopril LBM 12/12, -UOP 700ml Feeding - Current PO Supplement Current Supplement: Ensure Enlive Current Frequency of Supplement: Three times a day Current kCals Provided by Supplement: 350 Current Protein Provided by Supplement: 20 Assessment Assessment: Pt continues at nutritional risk r/t diagnosis and poor po intake. Variable po intake 0-75%; pt requires assistance w/meals. MD spence for pt's to bring food in from outside. [place] food preferences within parameters of current diet. Continue Ensure Enlive TID. Consider an appetite stimulant, if medically appropriate. Pt may benefit from a mouthwash for his dry mouth. Labs reviewed- noted concern for low albumin. Albumin reflects inflammatory process/chronic illness vs nutritional intake and probably will not be affected by increased protein intake. Wt changes noted. Dietitian following. Recommendations: 1. MD okayed for pt's to bring food in from outside 2. [place] food preferences within parameters of current diet 3. Continue Ensure Enlive TID 4. Consider an appetite stimulant, if medically appropriate 5. Pt may benefit from a mouthwash for his dry mouth 6. Albumin reflects inflammatory process/chronic illness vs nutritional intake and probably will not be affected by increased protein intake 7. Dietitian following Dietitian to Monitor: Lab values, Supplement acceptance, Intake & Output, Diet tolerance, Weight change, PO Intake, Medical course
[2017-12-18] MEDS: Pantoprazole Inj 40 MG Vial IV.PUSH SCH (21:03)
[2017-12-19 05:02] LABS: Eos # (Auto) 0.1 th/mm3 (0.0-0.4); Eos % (Auto) 2.1 % (0.0-4.0); Hematocrit 26.7 % (39.0-51.0); Hemoglobin 8.8 gm/dL (13.0-17.0); Lymph # (Auto) 1.3 th/mm3 (1.0-4.8); Lymph % (Auto) 28.3 % (9.0-44.0); Mean Platelet Volume 8.6 fL (7.0-11.0); Mono # (Auto) 0.4 th/mm3 (0.0-0.9); Mono % (Auto) 8.1 % (0.0-8.0); Neut # (Auto) 2.7 th/mm3 (1.8-7.7); Neut % (Auto) 60.5 % (16.0-70.0); Platelet Count 76 th/mm3 (150-450); Red Blood Count 2.67 mil/mm3 (4.50-5.90); Red Cell Distribution Width 22.8 % (11.6-17.2); White Blood Count 4.5 th/mm3 (4.0-11.0)
[2017-12-19 05:35] LABS: Calcium 8.5 mg/dL (8.5-10.1); Potassium 3.7 meq/L (3.5-5.1)
[2017-12-19 08:00] LABS: Platelet Morphology Normal (Normal)
[2017-12-19] MEDS: Furosemide 40 MG Tablet PO SCH (09:12)
[2017-12-19] MEDS: Lisinopril 10 MG Tablet PO SCH (09:12)
[2017-12-19] MEDS: dilTIAZem CD 180 MG Capsule PO SCH (09:12)
[2017-12-19] MEDS: Senna/Docusate Sodium 8.6/50 MG Tablet PO SCH ×2 (09:12→21:16)
[2017-12-19] MEDS: Pilocarpine HCl 5 MG Tablet PO SCH ×2 (09:12→21:16)
[2017-12-19] MEDS: Metoprolol Tartrate 50 MG Tablet PO SCH ×2 (09:13→21:16)
[2017-12-19] MEDS: levETIRAcetam 500 MG Tablet PO SCH ×2 (09:13→21:16)
--- NOTE | 2017-12-19 14:47 | P.PNIM ---
Subjective Interval history: Pt complains of not having had a BM in several days Denies any abd pain No nausea/vomiting. tolerating oral intake Physical Exam Vital signs: Vital Signs 12/18/17 15:30 12/18/17 17:43 12/18/17 20:00 Temperature 97.9 F 97.7 F Pulse Rate 90 91 H Respiratory Rate 16 22 Blood Pressure 111/54 L 116/59 L Pulse Oximetry 97 97 95 12/19/17 00:00 12/19/17 04:00 12/19/17 08:00 Temperature 97.2 F L 97.8 F 97.8 F Pulse Rate 82 87 87 Respiratory Rate 20 20 18 Blood Pressure 128/60 112/58 L 122/65 Pulse Oximetry 98 96 94 L 12/19/17 09:00 12/19/17 12:00 Temperature 97.2 F L Pulse Rate 92 H 84 Respiratory Rate 18 Blood Pressure 115/59 L Pulse Oximetry 95 Intake & Output 12/18/17 12/19/17 12/19/17 18:59 06:59 18:59 Intake Total 100 / 100 240 / 240 Output Total 200 / 200 225 / 225 Balance -100 / -100 15 / 15 Weight 110 kg Intake: IV 100 / 100 Rocephin Inj 2,000 MG In NS Inj 100 / 100 100 ML @ 200 mls/hr IV.SIG DAILY@1600 [facility] Rx#:[id number] Oral 240 / 240 Output: Urine 200 / 200 225 / 225 Other: # Voids 1 Date of Last Bowel Movement 12/12/17 12/12/17 12/12/17 Narrative: GENERAL: 81 year old male patient A&O CARDIO: Irregularly irregular RESP: clear bilaterally ABD: +BS, soft, non-tender, nondistended. EXT: No cyanosis, or edema. Results - Labs CBC & Chem 7: 12/19/17 03:24 12/19/17 03:24 Laboratory Results - last 24 hr 12/19/17 12/19/17 03:24 03:24 WBC 4.5 RBC 2.67 L Hgb 8.8 L Hct 26.7 L MCV 100.0 MCH 33.0 MCHC 33.0 RDW 22.8 H Plt Count 76 L MPV 8.6 Prelim Diff (Auto) Slide review pending Neut % (Auto) 60.5 Lymph % (Auto) 28.3 [place] % (Auto) 8.1 H Eos % (Auto) 2.1 Baso % (Auto) 1.0 Neut # (Auto) 2.7 Lymph # (Auto) 1.3 [place] # (Auto) 0.4 Eos # (Auto) 0.1 Baso # (Auto) 0.0 WBC Differential . Diff Scan Auto diff confirmed Differential Comment . Platelet Estimate Low L Platelet Morphology Normal Sodium 143 Potassium 3.7 Chloride 103 Carbon Dioxide 38.0 H Anion Gap 2 L BUN 22 H Creatinine 1.10 Estimated GFR 65 L Random Glucose 88 Calcium 8.5 Microbiology 12/13/17 11:20 Blood - Peripheral Aerobic Blood Culture - Final No growth in 5 days 12/13/17 11:20 Blood - Peripheral Anaerobic Blood Culture - Final No growth in 5 days 12/13/17 11:18 Blood - Peripheral Aerobic Blood Culture - Final No growth in 5 days 12/13/17 11:18 Blood - Peripheral Anaerobic Blood Culture - Final No growth in 5 days - Imaging Chest X-Ray 12/10/17 17:48 CONCLUSION: Left greater than the right bibasilar atelectasis and small effusions. Mild compensated cardiomegaly, stable. Head CT 12/10/17 17:48 CONCLUSION: 1. No acute intracranial hemorrhage. No mass effect or midline shift. 2. 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 3. Previously seen right frontal lobe hemorrhage has resolved. A small area of encephalomalacia has developed. 4. The previously seen small subarachnoid hemorrhage on the left has resolved. Chest CT 12/12/17 00:00 CONCLUSION: 1. Mild basilar infiltrates and small effusions. 2. Cardiac enlargement. Chest X-Ray 12/12/17 06:05 CONCLUSION: No significant interval change Cervical Spine MRI 12/14/17 00:00 CONCLUSION: 1. Multilevel degenerative findings of the cervical spine as seen on prior CT of 11/19/2017. No significant interval change. At C5-6 there is a broad-based disc osteophyte complex right greater than left resulting in moderate severity central canal narrowing with mild deformity of the spinal cord. No definite spinal cord signal abnormality identified. 2. Mild central canal stenosis at C6-7. Neural foraminal narrowing at multiple levels. Assessment and Plan - Assessment (1) Bacteremia Code(s): R78.81 - Bacteremia Status: Acute Plan: 81-year-old white male who was in [facility] and over the last several days had decreased appetite with increasing weakness lab work showed an elevated WBC count in the low hemoglobin he was transferred to [place] emergency and family' s request. Hemoglobin in the emergency room was approximately 8 WBC count was approximately 6[address]99 and with a slight elevation in heart rate does meet criteria for sepsis protocol and will be admitted for further evaluation may need blood transfusion as well. Bacteremia Leukocytosis - Pts WBC on admission 13.6 -> 9.6 (12/11) - The patient was started on IV vancomycin, cefepime note has a questionable history of allergy to penicillin - Blood cultures (12/10/17) grew out Strep Viridans in 4/4 bottles - Pt complained of stiff neck, suspicious for nuchal rigidity, IR was consulted for possible LP - patient and refused LP - CXR 12/12 --> Persistent mild bibasilar infiltrates and small effusions, left worse than right. Cardiac silhouette is unchanged. - CT chest (12/12/17): 1. Mild basilar infiltrates and small effusions. 2. Cardiac enlargement. - Urine culture reveals: < 10,000 gram positive edouard - Consult placed to ID Dr. Pang, appreciate input: following unclear source cardiology consulted for REBA - REBA on 12/16/[address] Willis, revealed no vegetations - ABX per ID - (cefepime (12/10 - 12/13) - Vancomycin (12/10 -12/14) - ceftriaxone (12/13 - present) - ST: regular diet consistency, thin liquids. Patient with poor nutritional intake, encourage PO intake and add ensure - Cervical Spine MRI 12/14/17 1. Multilevel degenerative findings of the cervical spine as seen on prior CT of 11/19/2017. No significant interval change. At C5-6 there is a broad-based disc osteophyte complex right greater than left resulting in moderate severity central canal narrowing with mild deformity of the spinal cord. No definite spinal cord signal abnormality identified. 2. Mild central canal stenosis at C6-7. Neural foraminal narrowing at multiple levels. - ABX recommendations per ID: - Ceftriaxone 2 grams IV q 24 hours, from 12/18/17-12/26/17 - Try to get pts bowels moving today - We will plan for d/c to SNF in AM - PT Anemia - Pt was guaiac negative in ER - Hemoglobin 8.1 in admission - Pt was given 1 unit PRBCs ordered 12/11, unclear if patient received this blood ? - Labs --> Hgb 8.4 (12/11) --> 8.4 (12/12) --> 8.8 (12/14) --> 8.0 (12/16) --> Pt received one units PRBCs on 12/16 --> Hgb 9.6 (12/17) - MCV 102.4, Iron 67, TIBC 204, %saturation 32.8, Ferritin 1124, B12 739, Folate 10.1 - In further review of outpatient records patient had been seen by Hematology/ oncology Dr. Martínez 11/13: for chronic macrocytic anemia. - Appreciate consult from Heme/Onc who recommended bone marrow aspiration to look further into myelodysplastic syndrome. Initially pt refused but in discussion with him today he reports that he just didn't understand what the BM biopsy was for and is now agreeable to it but wants to do this as an outpt. - Pt will need to followup with Dr. Martínez in 1-2 weeks as an outpt. - Monitor his labs while at rehab. Subarachnoid hemorrhage - In October patient last his footing at home and was found to have bilateral frontal subarachnoid hemorrhage admitted to the hospital neuro surgery was consult, and patient had repeated MRIs and CTs some improvement in the subarachnoid hemorrhages and the decision was made to transfer him to rehab facility. Of note his hemoglobin was low at approximately 7 and he did receive 2 units of blood was to undergo a GI workup but due to the subarachnoid hemorrhage that was put on hold. - Patient was on Coumadin which has been DC'd due to his subarachnoid hemorrhage. - Stable based on recent CT History of CHF (congestive heart failure) - Chest x-ray still shows some small effusions - continue home Lasix 40 mg PO daily - Troponin level slightly elevated on admission 0.08, patient denies chest pain will repeat now to establish trend - BNP 395 will continue home Lasix for now A-fib - Stable at present we will continue metoprolol, diltiazem Hypokalemia - replete - recheck 12/14 3.7 DVT prophylaxis with SCDs avoid chemical DVT prophylaxis due to recent Subarachnoid hemorrhage
[2017-12-19] MEDS ORDERED: Sod Phosphate/Sod Biphosphate (Adult) Enema 133 ML Bottle RECTAL PRN (14:51)
[2017-12-19] MEDS: Pantoprazole Inj 40 MG Vial IV.PUSH SCH (21:16)
[2017-12-20 05:01] VITALS: RESP 20
[2017-12-20] MEDS: levETIRAcetam 500 MG Tablet PO SCH (08:06)
[2017-12-20] MEDS: Pilocarpine HCl 5 MG Tablet PO SCH (08:06)
[2017-12-20] MEDS: Metoprolol Tartrate 50 MG Tablet PO SCH (08:06)
[2017-12-20] MEDS: Senna/Docusate Sodium 8.6/50 MG Tablet PO SCH (08:06)
[2017-12-20] MEDS: Lisinopril 10 MG Tablet PO SCH (08:07)
[2017-12-20] MEDS: dilTIAZem CD 180 MG Capsule PO SCH (08:07)
[2017-12-20] MEDS: Furosemide 40 MG Tablet PO SCH (08:07)
[2017-12-20 12:43] VITALS: BP 120/56; PULSE 88; TEMP 97.7; O2SAT 94
--- NOTE | 2017-12-20 14:28 | P.DS ---
Date of admission: 12/10/17 18:50 Primary care physician: Madhav Mcleod MD Attending physician on discharge: Anderson Roche Anticipated date of discharge: 12/20/17 Brief History from admission: 81-year-old white male who was in [facility] [place] and over the last several days had decreased appetite with increasing weakness lab work showed an elevated WBC count in the low hemoglobin he was transferred to [place] emergency and family' s request. Hemoglobin in the emergency room was approximately 8 WBC count was approximately 72829 and with a slight elevation in heart rate does meet criteria for sepsis protocol and will be admitted for further evaluation may need blood transfusion as well. Patient in October last his footing at home and was found to have bilateral frontal subarachnoid hemorrhage admitted to the hospital neuro surgery was consult, and patient had repeated MRIs and CTs some improvement in the subarachnoid hemorrhages and the decision was made to transfer him to rehab facility. Of note his hemoglobin was low at approximately 7 and he did receive 2 units of blood was to undergo a GI workup but due to the subarachnoid hemorrhage that was put on hold. Patient carries an extensive past medical history includes CVA atrial fib congestive heart failure hypertension hyperlipidemia was on Coumadin this is now DC'd due to his subarachnoid hemorrhage. At this time patient is more or less cooperative he is hungry and wants to eat and does admit to generalized weakness. He denies headache, dizziness, nausea or vomiting, chest pain, shortness of breath, dark stools, and patient on exam was guaiac negative. DS: Diagnosis - Discharge Diagnosis (1) Bacteremia Status: Acute DS: Medications - Discharge Medications Prescriptions: ceftriaxone 2,000 mg IV DAILY@1600 8 Days each potassium chloride 20 meq PO DAILY 30 Days #30 tab DS: Summary Hospital Course: Bacteremia Leukocytosis - pt is a 81[facility] over the last several days had decreased appetite with increasing weakness lab work showed an elevated WBC count in the low hemoglobin he was transferred to [place] emergency and family's request. Hemoglobin in the emergency room was approximately 8. Pts WBC on admission 13.6 -> 9.6 (12/11). The patient was started on IV vancomycin, cefepime note has a questionable history of allergy to penicillin. Blood cultures (12/10/17) grew out Strep Viridans in 4/4 bottles. Pt complained of stiff neck, suspicious for nuchal rigidity, IR was consulted for possible LP - patient and refused LP. CXR (11/1318) noted persistent mild bibasilar infiltrates and small effusions, left worse than right, and cardiac silhouette is unchanged. CT chest (12/12/17) noted mild basilar infiltrates and small effusions and cardiac enlargement. Urine culture with < 10,000 gram positive edouard. Consult placed to ID Dr. Pang and cardiology was consulted for REBA. REBA on with Dr. Willis, revealed no vegetations. Pt was treated with Abx per ID: Cefepime (12/10 - 12/13), Vancomycin (12/10 -12/14) , and Ceftriaxone (12/13 - present) Cervical Spine MRI (12/14/17): 1. Multilevel degenerative findings of the cervical spine as seen on prior CT of 11/19/2017. No significant interval change. At C5-6 there is a broad-based disc osteophyte complex right greater than left resulting in moderate severity central canal narrowing with mild deformity of the spinal cord. No definite spinal cord signal abnormality identified. 2. Mild central canal stenosis at C6-7. Neural foraminal narrowing at multiple levels. Final ABX recommendations per ID: Cont. Ceftriaxone 2 grams IV q 24 hours, from 12/18/17-12/26/17 Pt will have repeat CBC, CMP and Mg every Saturday at rehab. He will need to followup with his PCP, Dr. Mcleod, 1 week after discharge from SNF. Anemia - Pts Hemoglobin was 8.1 in admission. He was guaiac negative in ER. Pt was given 1 unit PRBCs ordered 12/11, unclear if patient received this blood? His labs trended --> Hgb 8.4 (12/11) --> 8.4 (12/12) --> 8.8 (12/14) --> 8.0 (12/16) -- > Pt received one units PRBCs on 12/16 --> Hgb 9.6 (12/17). Other lab results included MCV 102.4, Iron 67, TIBC 204, %saturation 32.8, Ferritin 1124, B12 739 , Folate 10.1. In further review of outpatient records patient had been seen by Hematology/oncology Dr. Martínez 11/13: for chronic macrocytic anemia. Appreciate consult from Heme/Onc who recommended bone marrow aspiration to look further into myelodysplastic syndrome. Initially pt refused but in discussion with him today he reports that he just didn't understand what the BM biopsy was for and is now agreeable to it but wants to do this as an outpt. Pt will need to followup with Dr. Martínez in 1-2 weeks as an outpt. Monitor his labs while at rehab. Subarachnoid hemorrhage - In October patient last his footing at home and was found to have bilateral frontal subarachnoid hemorrhage admitted to the hospital neuro surgery was consult, and patient had repeated MRIs and CTs some improvement in the subarachnoid hemorrhages and the decision was made to transfer him to rehab facility. Of note his hemoglobin was low at approximately 7 and he did receive 2 units of blood was to undergo a GI workup but due to the subarachnoid hemorrhage that was put on hold. Patient was on Coumadin which has been DC'd due to his subarachnoid hemorrhage. Stable based on recent CT History of CHF (congestive heart failure) - Chest x-ray still shows some small effusions. Pt was continued on his home dose of Lasix 40 mg PO daily. Troponin level slightly elevated on admission 0.08 , patient denies chest pain will repeat trended to 0.07. BNP 395 at admission. A-fib - Stable at present we will continue metoprolol, diltiazem Hypokalemia - This was replaced and we will continue a daily dose 20meq of potassium upon discharge. Monitor labs while at SNF. - Time Spent with Patient Total time spent providing and/or coordinating discharge services: Greater than 30 minutes - Quality: VTE Deep Vein Thrombosis/Pulmonary Embolism Present on Admission: No Exam Vital signs: Vital Signs 12/19/17 16:00 12/19/17 18:15 12/19/17 20:00 Temperature 97.2 F L 97.2 F L Pulse Rate 86 80 Respiratory Rate 18 20 Blood Pressure 118/59 L 129/59 L Pulse Oximetry 98 98 96 12/20/17 00:00 12/20/17 04:00 12/20/17 08:00 Temperature 97.9 F 97.2 F L 97.6 F Pulse Rate 77 81 101 H Respiratory Rate 18 20 20 Blood Pressure 113/54 L 132/63 149/62 H Pulse Oximetry 95 95 95 12/20/17 12:00 Temperature 97.7 F Pulse Rate 88 Respiratory Rate 20 Blood Pressure 120/56 L Pulse Oximetry 94 L Intake & Output 12/19/17 12/20/17 12/20/17 18:59 06:59 18:59 Intake Total 580 / 580 120 / 120 Output Total 350 / 350 200 / 200 Balance 230 / 230 -80 / -80 Weight 110 kg Intake: IV 100 / 100 Rocephin Inj 2,000 MG In NS Inj 100 / 100 100 ML @ 200 mls/hr IV.SIG DAILY@1600 [facility] Rx#:[id number] Oral 480 / 480 120 / 120 Output: Urine 350 / 350 200 / 200 Other: # Incontinent Voids 1 Date of Last Bowel Movement 12/19/17 12/19/17 # Bowel Movements 3 # Incontinent Bowel Movements 1 Results Procedures completed during hospitalization: See above - Impressions ITS Impressions Head CT 12/10/17 17:48 CONCLUSION: 1. No acute intracranial hemorrhage. No mass effect or midline shift. 2. 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 3. Previously seen right frontal lobe hemorrhage has resolved. A small area of encephalomalacia has developed. 4. The previously seen small subarachnoid hemorrhage on the left has resolved. . Chest CT 12/12/17 00:00 CONCLUSION: 1. Mild basilar infiltrates and small effusions. 2. Cardiac enlargement. Chest X-Ray 12/12/17 06:05 CONCLUSION: No significant interval change Cervical Spine MRI 12/14/17 00:00 CONCLUSION: 1. Multilevel degenerative findings of the cervical spine as seen on prior CT of 11/19/2017. No significant interval change. At C5-6 there is a broad-based disc osteophyte complex right greater than left resulting in moderate severity central canal narrowing with mild deformity of the spinal cord. No definite spinal cord signal abnormality identified. 2. Mild central canal stenosis at C6-7. Neural foraminal narrowing at multiple levels. Discharge Plan - Discharge Disposition Patient Disposition: 03 Discharge to SNF - Discharge Condition Condition: Stable - Discharge Order Discharge Orders: Discharge Order (Routine); Ordered 12/20/17 Ordered By: Ebony Mojica - Discharge Details Anticipated Discharge Date: 12/20/17 Discharge Comment: Followup with Dr. Martínez in 2 weeks - Physicians Team Primary Care Provider: Madhav Mcleod Attending Provider: Cristian Hunt Other Providers: Frances Pang MD ; Quinton Alva ; Dakota Bauer MD ; Donato Borjas, ; Daniela Lopez ; Senait Martínez MD
== END 2017-12-20 14:37 ==
LOC: NEPD 13:49 → NEDA 18:50 → N07 20:20
PROVIDERS: ADMIT Hospitalist; ATTEND Hospitalist